=== PATIENT | male | born 1950 | race Caucasian/White ===

== ENCOUNTER 2023-10-10 07:04 | Outpatient (CLI) | payer OTHER, SELFPAY ==
--- NOTE | 2023-10-10 08:46 | W.ANESCHARGE ---
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
--- NOTE | 2023-10-10 12:10 | W.ANESCHARGE ---
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
== END 2023-10-10 07:05 | disposition home or self-care (01) ==
LOC: OP CLINIC 07:04
PROVIDERS: PCP Internal Medicine; Visit Provider Surgery
DX: Z12.11 Encounter for screening for malignant neoplasm of colon (principal); K63.5 Polyp of colon; K57.30 Diverticulosis of large intestine without perforation or abscess without bleeding; Z86.010 Personal history of colon polyps
CPT/HCPCS: 00811; 45385; 88305; 99100; J2704

== ENCOUNTER 2024-08-30 08:05 | Outpatient (CLI) | payer OTHER, SELFPAY ==
--- OUTSIDE RECORDS SUMMARY | 2024-09-02 15:53 | XMS_ITS | Encounter Summary ---
Author Organization [email or web address] Address [address], [place] [address] Care Team Providers Care Scenery Builder Name Role Phone Daly Silveira MD Primary Care Provider +1- [phone] Reason for Visit * Reason Comments Surgery Questions Encounter Details Date Type Department Care Team (Late st Contact Info) Description 07/19/2024 Telephone [facility] [address] Urology [address] [place] [address] Razia Ochoa PA-C [address] [place] [address] Surgery Questions Social History Tobacco Use Types Packs/Day Years Used Date Smoking Tobacco: Never Smokeless Tobacco: Former Chew Quit: 2019 Alcohol Use Standard Drinks/Week Comments Not Currently 0 (1 standard drink = 0.6 oz pur e alcohol) Sex and Gender Information Value Date Recorded Sex Assigned at Not on file Gender Identity Not on file Sexual Orientation Not on file documented as of this encounter Nursing Notes * Rosie Velazquez RN - 07/19/2024 3:26 PM CDT Pt calls in to confirm that he and Suri discussed cancelling his upcoming surgery with Dr. Jamison. I reviewed the office visit note from last week and discussed with Suri, plan was to cancel surgeryfor now. Repeat the UDS in 1 year. Pt to call in the interim if symptoms worsen. Per pt, he is not ready for surgery and is managing ok for now. documented in this encounter Plan of Treatment Upcoming Encounters Date Type Department Care Team (Late st Contact Info) Description 10/08/2024 10:30 AM CASE WORK AIDE [facility]ointment [facility] 39[address] Pulmonary Lab [address] [place] [address] 10/08/2024 11:00 AM CASE WORK AIDE Office Visit [facility] [address] Pulmonary Medicine [address] [place] [address] Sujatha Parra MD [address] [facility] [address] [place] [address] 10/11/2024 9:45 AM CASE WORK AIDE Appointment [facility] [address] Dermatology [address] [place] [address] Vania Cohen MD [address] [place] [address] documented as of this encounter Visit Diagnoses Not on filedocumented in this encounter Care Teams Scenery Builder Relationship Specialty Start Date End Date Daly Sivleira MD [address] [place] [address] PCP - General Internal Medicine 04/08/22 documented as of this encounter
--- OUTSIDE RECORDS SUMMARY | 2024-09-02 15:53 | XMS_ITS | Encounter Summary ---
Author Organization [facility] Address [address], [place] [address] Care Team Providers Care Laborer Hoisting Name Role Phone Daly Silveira MD Primary Care Provider +1- [phone] Reason for Visit * Auth/Cert (Routine) Specialty Diagnoses / Procedures Referred By Contac t Referred To Contact Diagnoses Incomplete bladder emptying Procedures TRANSURETHRAL RESECTION OF THE PROSTATE Referral ID Status Reason Start Date Expiration Date Visits Re quested Visits Authorized [id number] 1 1 Encounter Details Date Type Department Care Team (Late st Contact Info) Description 08/09/2024 Hospital Encounter [facility] [address] [facility] [place], [place] [address] Guru Jamison MD [address] [place], [place] [address] Social History Tobacco Use Types Packs/Day Years Used Date Smoking Tobacco: Never Smokeless Tobacco: Former Chew Quit: 2019 Alcohol Use Standard Drinks/Week Comments Not Currently 0 (1 standard drink = 0.6 oz pur e alcohol) Sex and Gender Information Value Date Recorded Sex Assigned at Not on file Gender Identity Not on file Sexual Orientation Not on file documented as of this encounter Plan of Treatment Upcoming Encounters Date Type Department Care Team (Late Contact Info) Description 10/08/2024 10:30 AM BENEFITS DIRECTOR Appointment [facility] 39[address] Pulmonary Lab [address] [place] [address] 10/08/2024 11:00 AM BENEFITS DIRECTOR Office Visit [facility] 39[address] Pulmonary Medicine [address] [place] [address] Sujatha Parra MD [address] [facility] [address] [place] [address] 10/11/2024 9:45 AM BENEFITS DIRECTOR Appointment [facility] [address] Dermatology [address] [place] [address] Vania Cohen MD [address] [place] [address] documented as of this encounter Visit Diagnoses Diagnosis Incomplete bladder emptying- Primary documented in this encounter Admitting Diagnoses Diagnosis Incomplete bladder emptying documented in this encounter Care Teams Laborer Hoisting Relationship Specialty Start Date End Date Daly Silveira MD [address] [place] [address] PCP - General Internal Medicine 04/08/22 documented as of this encounter
--- OUTSIDE RECORDS SUMMARY | 2024-09-02 15:53 | XMS_ITS | Encounter Summary ---
Author Organization [facility] Address [address] [address] Care Team Providers Care Briquetter Operator Name Role Phone Daly Silveira MD Primary Care Provider +1- [phone] Reason for Visit * Reason Comments Post-Op Follow Up Encounter Details Date Type Department Care Team (Late st Contact Info) Description 08/07/2024 Telephone [facility] [address] [place], [place] [address] Nurse Cris Killian Post-Op Follow Up Social History Tobacco Use Types Packs/Day Years [...] as of this encounter Nursing Notes * Michaela Patel RN - 08/07/2024 1:44 PM CDT Post op call placed patient reports bleeding onto the dressing. He did apply pressure and active bleeding has stopped. Reviewed to monitor closely and to apply pressure if starts to actively bleed again and to call clinic with any questions or concerns. documented in this encounter Plan of Treatment Upcoming Encounters Date Type Department Care Team (Late st Contact Info) Description 10/08/2024 10:30 AM PODIATRIST ASSISTANT Appointment [facility] 39[address] Pulmonary Lab [address] [place] [address] 10/08/2024 11:00 AM PODIATRIST ASSISTANT Office Visit [facility] 3931 Pulmonary Medicine [address] [facility] [place] [address] Sujatha Parra MD [address] [facility] [address] [place] [address] 10/11/2024 9:45 AM PODIATRIST ASSISTANT Appointment [facility] [address] Dermat[address] [place] [address] Vania Cohen MD [address] [place] [address] documented as of this encounter Visit Diagnoses Not on filedocumented in this encounter Care Teams Briquetter Operator Relationship Specialty Start Date End Date Daly Silveira MD [address] [place] [address] PCP - General Internal Medicine 04/08/22 documented as of this encounter
--- OUTSIDE RECORDS SUMMARY | 2024-09-02 15:53 | XMS_ITS | Encounter Summary ---
Author Organization [facility] Address [address] [address] Care Team Providers Care Bus And Trolley Inspecting Dispatcher Name Role Phone Daly Silveira MD Primary Care Provider +1- [phone] Reason for Referral * Procedure/Equipment (Routine) - Incomplete Specialty Diagnoses / Procedures Referred By Nikki t Referred To Contact Diagnoses Renal mass Procedures MR Abd W/WO IV Cont Razia Ochoa PA-C [address] [place] [address] Referral ID Status Reason Start Date Expiration Date V isits Requested Visits Authorized [id number] Incomplete 01/16/2025 04/17/2026 1 1 Encounter Details Date Type Department Care Team (Late st Contact Info) Description 07/19/2024 Orders Only [facility] [address] Urology [address] [place] [address] Razia Ochoa PA-C [address] [place] [address] Renal mass (Primary Dx) Social History Tobacco Use Types Packs/Day Years [...] st Contact Info) Description 10/08/2024 10:30 AM DETENTION OFFICER Appointment [facility] 39[address] Pulmonary Lab [address] [place] [address] 10/08/2024 11:00 AM DETENTION OFFICER Office Visit [facility] 39[address] Pulmonary Medicine [address] [place] [address] Sujatha Parra MD [address] [facility] [address] [place] [address] 10/11/2024 9:45 AM DETENTION OFFICER Appointment [facility] [address] D[address]atology [address] [place] [address] Vania Cohen MD [address] [place] [address] Scheduled Orders Name Type Priority Associated Diagnoses Orde r Schedule MR Abd W/WO IV Cont Imaging New Routine Renal mass Expected: 01/16/2025 (Approximate), Expires: 01/16/2026 documented as of this encounter Visit Diagnoses Diagnosis Renal mass- Primary Unspecified disorder of kidney and ureter documented in this encounter Care Teams Bus And Trolley Inspecting Dispatcher Relationship Specialty Start Date End Date Daly Silveira MD [address] [place] [address] PCP - General Internal Medicine 04/08/22 documented as of this encounter
--- OUTSIDE RECORDS SUMMARY | 2024-09-02 15:53 | XMS_ITS | Encounter Summary ---
Author Organization [facility] Address [address], [place] [address] Care Team Providers Care Senior Software Quality Analyst Name Role Phone Daly Silveira MD Primary Care Provider +1- [phone] Encounter Details Date Type Department Care Team (Late Contact Info) Description 07/22/2024 Notes/Orders [facility] [address] [place], [place] [address] Guillermina Burton, PharmD [address] [place], [place] [address] Social History Tobacco Use Types Packs/Day Years Used Date Smoking Tobacco: Never Smokeless Tobacco: Former Chew Quit: 2019 Alcohol Use Standard Drinks/Week Comments Not Currently 0 (1 standard drink = 0.6 oz pur e alcohol) Sex and Gender Information Value Date Recorded Sex Assigned at Not on file Gender Identity Not on file Sexual Orientation Not on file documented as of this encounter Progress Notes * Guillermina Burton, PharmD - 07/22/2024 10:48 AM CDT Chart review completed. Reason: adherence assessment via referral from [employer] [facility]. Medication(s): Lisinopril Comments: Last refilled on 02/22 for 90 days per [facility]. Per patient he has still been taking. Does need a refill. Action Taken: Refill for 90 days sent to pharmacy [facility] Medication Therapy Management documented in this encounter Plan of Treatment Upcoming Encounters Date Type Department Care Team (Late st Contact Info) Description 10/08/2024 10:30 AM MOTORS ASSEMBLER Appointment [facility] 39[address] Pulmonary Lab [address] [place] [address] 10/08/2024 11:00 AM MOTORS ASSEMBLER Office Visit [facility] 39[address] Pulmonary Medicine [address] [place] [address] Sujatha Parra MD [address] [facility] [address] [place] [address] 10/11/2024 9:45 AM MOTORS ASSEMBLER Appointment [facility] [address] Dermatology [address] [place] [address] Vania Cohen MD [address] [place] [address] documented as of this encounter Visit Diagnoses Not on filedocumented in this encounter Care Teams Senior Software Quality Analyst Relationship Specialty Start Date End Date Daly Silveira MD [address] [place] [address] PCP - General Internal Medicine 04/08/22 documented as of this encounter
--- OUTSIDE RECORDS SUMMARY | 2024-09-02 15:53 | XMS_ITS | Encounter Summary ---
[facility] Organization [facility] Address [address] [address] Care Team Providers Care Flame Planer Name Role Phone Daly Silveira MD Primary Care Provider [phone]- [phone] Reason for Visit * Reason Comments BCC (BASAL CELL CARCINOMA) Mohs surgery, right dorsal hand * Consult/Transfer Care (Routine) - New Request Specialty Diagnoses / Procedures Referred By Contac t Referred To Contact Diagnoses BCC (basal cell carcinoma), hand, right Vania Cohen MD [address] [place] [id number] Referral ID Status Reason Start Date Expiration Date V isits Requested Visits Authorized [id number] New Request 04/18/2024 07/18/2025 1 1 Encounter Details Date Type Department Care Team (Late st Contact Info) Description 08/06/2024 7:45 AM CDT Office Visit [facility] [address] [place], [place] [phone] Arlen Killian MD [address] [place] [phone] Basal cell carcinoma (BCC) of right hand (Primary Dx) Social History Tobacco Use Types [...] on file documented as of this encounter Patient Instructions * Patient Instructions* Alisia Hernandez - 08/06/2024 7:45 AM CDT Dermatologic Surgery Wound Care All Patients: Following skin surgery, you can expect: Mild to moderate bruising on or around surgical site Moderate swelling Mild to moderate pain For surgery on the scalp, forehead, adventism, eye or nose - bruising and swelling around the eyes is normal and usually lasts for several days. For surgery on the arm, hand, leg and foot - swelling of the hands or feet is normal. Keeping the area elevated and using an arm sling or wrapping with an OWEN wrap will help to control swelling. Call the office or present to urgent care if you experience any of the following: Constant fever above 101 F Intense pain near surgical site Increased swelling, spreading redness or uncontrolled bleeding Reopening of the wound at any time Yellowish drainage from the wound Bleeding: During the first 24 to 48 hours, a small amount of bleeding around the dressing/bandage may be noticed. You may reinforce the dressing with more tape if needed. Try to avoid removing the dressing even if light bleeding is noticed, since this may lead to even more bleeding. If bleeding or drainage continues or saturates the dressing: Apply firm and direct pressure with a clean cloth or gauze for 20 minutes (set a timer). Do not release pressure to look at bleeding status during this time. If bleeding continues after 20 minutes, apply pressure again for 20 additional minutes. If the bleeding persists, continue the pressure & call our office for further instructions. If bleeding stops, you may add additional gauze over the dressing or change the saturated dressing, securing it in place with tape. Activity: Relax and take it easy for the first 48 hours after surgery and avoid activities that would raise your heart rate or blood pressure. Elevate surgical site (head, neck, arm, leg) on 2-3 pillows when lying or sitting. Use an ice pack over the surgical site for 20 minutes, every 2 hours while awake for the first 24-48 hours. Avoid bending over, reaching, stretching, or lifting greater than 10 lbs. for 2 weeks. NO aerobic exercise for 14 days; brisk walking, gardening, golfing, etc. This type of activity can put your sutures under stress, interfere with healing, and cause bleeding. Avoid prolonged water exposure (swimming or soaking) for 3 weeks or until the wound is healed. Avoid taking non-prescribed aspirin for pain, unless directed to do so by a physician. Tylenol is okay to take (500-650 mg every 4-6 hours as needed) or you may take the prescription pain medication given to you by our physician. DO NOT take Tylenol along with prescription pain medication as this can be damaging to the liver and kidneys and/or possibly lead to an overdose. If you are still having pain, you may also take ibuprofen 400 mg every 4-6 hours as needed as long as it is ok with your primary care and/or other physicians. Avoid drinking alcohol for one week following your procedure. Alcohol increases risk of bleeding. Avoid smoking. Smoking greatly decreases wound healing. IMPORTANT PHONE NUMBERS For any questions concerning your surgical wound site(s), please call the numbers below. If you leave a message, please include your full name, date of , date and office location of surgery, body site, and a brief description of your problem or question: Monday - Monday between the hours of 7:30 a.m. and 3:30 p.m., please call Dr. Killian's Nurse Line: [phone] ALWAYS USE THIS NUMBER DURING BUSINESS HOURS. Dr. Killian is not in the office on Monday and Monday, but her nurse line is available to answer any questions. For emergency use only on evenings, weekends, and holidays, please call or text Dr. Killian's mobile number: [phone] We request that you always contact us by phone first, on Dr. Killian's Nurse Line, to schedule anappointment if you feel you need to be seen in clinic. Standard Care Instructions Leave the initial pressure dressing/bandage applied in the clinic AND KEEP DRY for 2 days. When it is time to remove the dressing, remove it very gently as not to disrupt the wound and any sutures underneath. Some amount of blood on the dressing is normal. The easiest way to remove the dressing is to let shower water get it wet and loosen the tape. Once the dressing is off, gently wash the wound with warm, soapy water. Apply ointment (clean Vaseline, petrolatum, or Aquaphor) to the incision with a cotton swab (Q-tip)and cover with a small piece of non-adherent gauze (such as Telfa) and tape. Avoid placing tape or adhesive directly over incision. Do not let the area dry out or form a scab, as it can slow healing and create scarring. Perform site care twice per day until the surface of the incision has healed - usually for 2-3 weeks. 4 weeks after surgery: You can start gently massaging the scar area for a few minutes a day. You may apply silicone gel twice a day (ScarAway, Scar Recovery, Biocorneum or Serica gel available at [facility] or online). Protect the healing scar from the sun. Apply sunscreen regularly when outdoors. documented in this encounter Progress Notes * Arlen Killian MD - 08/06/2024 7:45 AM CDT Chief Complaint Patient presents with BCC (BASAL CELL CARCINOMA) Mohs surgery, right dorsal hand S:Sonny Van is a 74 y.o. male referred by Dr. Vania Swann who presents for evaluation and possible surgical treatment of a BCC of the right dorsal hand. Pt reports biopsy site has been healing well. No other lesions of concern. ROS: No fevers/chills. No other skin complaints. PMH: Reviewed in health profile. Medications: Reviewed in patients health profile. The patient has a current medication list which includes the following prescription(s): albuterol sulfate hfa, alprazolam, aripiprazole, aspirin ec, atorvastatin, betamethasone dipropionate, budesonide, cholecalciferol, desonide, escitalopram oxalate, fluocinonide, fluocinonide, fluticasone-vilanterol, gentamicin, ipratropium- albuterol, lisinopril, methylphenidate, metoprolol succinate, mirtazapine, nitroglycerin, omeprazole, prednisone, quetiapine, tacrolimus, tamsulosin, and triamcinolone acetonide, and the following Facility-Administered Medications: sodium chloride 0.9%. Allergies: The patient is allergic to morphine. OBJECTIVE : Constitutional: Alert, WDWN, cooperative in no acute distress. Biopsy site easily identified and site confirmed by pt and photo Path report was reviewed with pt FINAL DIAGNOSIS - [id number] A. Skin, Right Dorsal Hand, shave: - Basal cell carcinoma, nodular type, present at deep biopsy margin. ASSESSMENT/PLAN: 1. Biopsy proven BCC, right dorsal hand --Pt was educated regarding dx --Discussed all management options with patient, including benefits and risks of each: no treatment, excision and repair, Mohs micrographic surgery --Pt elected Mohs micrographic surgery and understands the risks of scar (including scar widening, hypertrophic/keloid scar, erythematous/hyperpigmented/hypopigmented scar), bleeding, infection, numbness, recurrence, dehiscence, necrosis --Patient would like to go forward with procedure today, which was subsequently done --Please see operative note and consent form for further details F/U as needed (pt preferred absorbable sutures, strict return precautions discussed). Also follow-up with referring provider per their instructions or sooner prn. * Arlen Killian MD - 08/06/2024 7:45 AM CDT Dermatology: Mohs Micrographically Controlled Tumor Extirpation Mohs Surgeon: Arlen Killian M.D. Aerobics Instructor: Alisia Hernandez MA Anesthesia: 1% Lidocaine with epinephrine Cancer Type: Nodular Basal Cell Carcinoma Anatomic Site: Right dorsal hand Preoperative Lesion Size: 1.1 cm x 1.1 cm Operation: Mohs micrographically controlled tumor extirpation Indication: anatomic location Final Surgical Defect Size: 1.5 cm x 1.2 cm Skin Preparation: Hibiclens Preoperative Medication(s): none MOHS STAGE I: The nature and purpose of the procedure, associated risks, possible consequences and complications,and alternative forms of treatment were explained in detail. The biopsy site was identified and wasconfirmed by the patient and the photo provided. An informed operative consent and photo permit were obtained. The patient was positioned, prepped, and draped in the usual sterile manner. Local anesthesia was obtained with local anesthetic as listed above. The clinically apparent tumor was then debulked with a curette. A 2 mm rim of normal appearing skin was marked circumferentially around the defect. The area thus outlined was excised deep to subcutis. Hemostasis was achieved with bipolar elect rocoagulation. The specimen was oriented, mapped, subdivided into 2 sections, chromacoded, and submitted for horizontal frozen sections. The patient tolerated the procedure well, no complications were noted, and a pressure dressing was placed. Microscopic tumor was found persisting in 1 of the specimens. Pathology Description Pathology shows proliferations of hyperchromatic, basaloid cells with large nuclei and scant cytoplasm that demonstrate peripheral palisading. The tumor is present at the level of the dermis. No lymphovascular or perineural invasion was appreciated. This pathology is consistent with basal cell carcinoma. MOHS STAGE II: A 3 mm rim of normal appearing skin was marked circumferentially around the affected area(s) of thedefect. The area thus outlined was excised deep to subcutis. Hemostasis was achieved with bipolar electrocoagulation. The 1 specimen(s) was/were oriented, mapped, subdivided into 1 sections, chromacoded, and submitted for horizontal frozen sections. The patient tolerated the procedure well, no complications were noted, and a pressure dressing was placed. Microscopic tumor was found persisting in none of the specimen(s). The total number of microscopic sections from all Mohs stages was 3. Arlen Killian MD acted in two separate but integrated capacities as both the surgeon and the pathologist. MOHS DEFECT RECONSTRUCTION PROCEDURE Operation: Intermediate linear closure of Mohs defect described above. Final Linear Closure: 3.1 cm. Various closure modalities were discussed with the patient, and it was decided that an intermediatelinear repair would best preserve normal anatomic and functional relationships. The nature and purpose of the procedure, associated risks, possible complications, and alternative methods of treatmentwere explained to the patient in detail by Arlen Killian MD. An informed operative consent wasobtained. The patient was positioned, prepped, and draped in the usual sterile manner. Adequate anesthesia was then obtained by infiltrating local anesthesia as listed above along the edges and at the base of the defect. The edges of the defect were undermined at the dermal subcutaneous layer approximately 1.0 cm in all directions. The edges could then be opposed without significant tension. Excision of standing tissue cones was performed via triangulation technique. Adequate hemostasis was achieved with bipolar electrocoagulation. The subcutaneous and dermal tissues were opposed and sutured with multiple 4-0 Vicryl sutures. The epidermal edges were then closed with multiple 4-0 Chromic gutsutures. The final incision lines were placed with respect for the patient's natural skin tension lines. The surgical site was lightly scrubbed. A Mupirocin ointment, Telfa and gauze pressure dressing was applied to the surgical site. The patient tolerated the procedure well without complications and was given both verbal and written explicit instructions on postoperative wound care and pain management. Follow-up for suture removal in prn days. Patient was recommended Extra Strength Tylenol perpackage directions, as needed for mild pain control. The patient was discharged stable from the Derm atology Clinic. [facility] [address] [place] [address] documented in this encounter Plan of Treatment Upcoming Encounters Date Type Department Care Team (Late st Contact Info) Description 10/08/2024 10:30 AM BIOMEDICAL FIELD SERVICE ENGINEER [facility]ointment [facility] [address] [place] [id number] 10/08/2024 11:00 AM BIOMEDICAL FIELD SERVICE ENGINEER Office Visit [facility] [facility] [address] [place] [address] [place] [address] [place] [address] [address] [place] [address] 10/11/2024 9:45 AM BIOMEDICAL FIELD SERVICE ENGINEER Appointment [facility] [address] [place] [address] Vania Cohen MD [address] [place] [phone] Scheduled Referrals Name Type Priority Associated Diagnoses Orde r Schedule Dermatology Surgery/Mohs Consult Adult Referral Routine BCC (basal cell carcinoma), hand, right Ordered: 04/18/2024 documented as of this encounter Visit Diagnoses Diagnosis Basal cell carcinoma (BCC) of right hand- Primary documented in this encounter Care Teams Flame Planer Relationship Specialty Start Date End Date Daly Silveira MD [address] [place] [address] PCP - General Internal Medicine 04/08/22 documented as of this encounter
--- OUTSIDE RECORDS SUMMARY | 2024-09-02 15:53 | XMS_ITS | Clinical Summary ---
[facility] Organization [facility] Address [address] [place] [address] Care Team Providers Care Career Developer Name Role Phone Daly Silveira MD Primary Care Provider [phone] Source Comments You are receiving this document as you are listed as the primary care provider,follow-up provider, or the patient has been referred to you for consultation.This is in compliance with the Medicare and[facility] E[facility] Incentive Program,which states Providers who transition their patient to another setting of careor provider of care or refers their patient to another provider of care shouldprovide summary care record for each transition of care or referral. [facility] [employer] Allergies Active Allergy Reactions Criticality Noted Date Comments Morphine Hypotension 07/10/2020 Medications Medication Sig Dispensed Refills Start Date End Date Status aspirin EC (ECOTRIN) 325 MG enteric coated tablet Take 1 Tablet (325 mg) by mouth daily. 13 7 Active cholecalciferol (AKA VITAMIN D3) 1000 UNITS tablet Take 2 tablets by mouth daily (every 24 hours). 100 tablet PRN 3 Active nitroglycerin (NITROSTAT) 0.[address] 1 Tablet (0.3 mg) under tongue every 5 minutes as needed for Chest Pain (Place 0.3 mg under the tongue every 5 minutes as needed for Chest pain.). 4 Active omeprazole (PRILOSEC) 40 MG capsule TAKE 1 CAPSULE BY MOUTH DAILY 90 Cap 0 7 Active metoprolol succinate (TOPROL XL) 50 MG 24 hour release tablet Take 2 Tablets (100 mg) by mouth daily. 2 Active gentamicin (GARAMYCIN) 0.1 % ointment Apply topically two times a day. 30 g 3 Active atorvastatin (LIPITOR) 40 MG tablet TAKE 1 TABLET(40 MG) BY MOUTH DAILY 90 Tablet 3 Active triamcinolone acetonide (KENALOG) 0.1 % ointmentIndicatio ns:Dermatitis Apply topically two times a day. Apply to the body twice a day as needed. Avoid face, under arms and groin. 453.6 g 1 4 Active Additional Information Patient not taking.Reported on 05/07/2024 desonide (DESOWEN) 0.05 % creamIndications: Dermatitis Apply to skin behind both ears twice a day as needed. 30 g 2 4 Active fluocinonide (LIDEX) 0.05 % external solutionIndicatio ns:Dermatitis Apply topically two times a day. Apply to scalp twice a day as needed. 60 mL 3 4 Active escitalopram oxalate (LEXAPRO) 20 MG tablet Take 2 Tablets (40 mg) by mouth daily. 180 Tablet 1 4 Active QUEtiapine (SEROQUEL) 300 MG tabletIndications :MDD (major depressive disorder), recurrent, in partial remission (HRC) Take 2 Tablets (600 mg) by mouth daily at bedtime. 180 Tablet 1 4 Active ALPRAZolam (XANAX) 0.5 MG tabletIndications :HAI (generalized anxiety disorder) (HRC) Take 1 Tablet (0.5 mg) by mouth two times a day. Updated prescription and number of pills per month 60 Tablet 3 4 Active methylphenidate (RITALIN) 10 MG tablet For 1 week, take 10 mg daily, then increase to 10 mg twice daily. Pharmacist may substitute 60 Tablet 4 Active Additional Information Patient not taking.Reported on 05/07/2024 fluocinonide (LIDEX) 0.05 % ointmentIndicatio ns:Rash Apply topically two times a day. Apply twice daily to areas of rash on both arms and back of neck, avoid face, armpits and groin. 60 g 3 4 Active ALBUterol sulfate HFA 108 (90 Base) MCG/ACT inhalerIndication s:Severe persistent asthma without complication (HRC) Inhale 1-2 Puffs every 4 hours as needed for Wheezing or Shortness of Breath. 6.7 g 11 4 Active fluticasone-vilan terol (BREO ELLIPTA) 200-25 MCG/ACT inhaler Inhale 1 Dose daily. Rinse mouth/gargle after use 180 Each 3 4 Active budesonide (PULMICORT) 0.5 MG/2ML inhalation suspensionIndicat ions:Severe persistent asthma, unspecified whether complicated (HRC) Inhale 2 mL (0.5 mg) two times a day. 360 mL 11 4 Active predniSONE (DELTASONE) 10 MG tabletIndications :Severe persistent asthma, unspecified whether complicated (HRC) 4 tabs daily x3 days, 3 tabs daily x3 days, 2 tabs daily x3 days, 1 tab daily x3 days, then stop 30 Tablet 3 4 Active ipratropium-albut xander (DUONEB) 0.5-2.5 (3) mg/3ml nebulizer solutionIndicatio ns:Severe persistent asthma, unspecified whether complicated (HRC) Inhale 3 mL every 6 hours as needed for Wheezing or Shortness of Breath. 90 mL 11 4 Active betamethasone dipropionate 0.05 % AUGMENTED ointment Apply topically two times a day. 60 g 2 4 Active mirtazapine (REMERON) 45 MG tablet Take 1 Tablet (45 mg) by mouth every evening. NEED TO SCHEDULE AN APPT FOR FUTURE REFILLS. PLEASE CALL [phone] TO SCHEDULE. 30 Tablet 3 4 Active tacrolimus (PROTOPIC) 0.1 % ointmentIndicatio ns:Rash Apply to arms and back of neck twice a day as needed for itching. 60 g 2 4 Active tamsulosin (FLOMAX) 0.4 MG CAPS capsuleIndication s:Enlarged prostate,Urinary retention Take 1 Capsule (0.4 mg) by mouth daily. 90 Capsule 3 4 07/12/20 25 Active lisinopril (ZESTRIL) 20 MG tablet Take 1 Tablet (20 mg) by mouth daily. 90 Tablet 1 4 Active ARIPiprazole (ABILIFY) 5 MG tablet TAKE 1 TABLET(5 MG) BY MOUTH EVERY MORNING 30 Tablet 4 Active ARIPiprazole (ABILIFY) 5 MG tablet Take 1 Tablet (5 mg) by mouth every morning. 30 Tablet 3 4 08/07/20 24 Discontinued Active Problems Patient Care Coordination No te Formatting of this note migh t be different from the original. [facility] DCM Care Management Sonny Van was offered Case Management support. He agrees to work with [facility] to assist with connection to mental health resources and understanding his cardiovascular plan of care. Janette Lujan RN 09/03/2020, 5:06 PM Update 08/26- Closing case, goals have been met. Problem Noted Date Diagnosed Date Bladder outlet obstruction 07/12/2024 Incomplete bladder emptying 07/02/2024 Frequent PVCs 12/08/2023 Overview (12/08/2023): - ZIO Patch monitor (11/23-): Sinus rhythm heart rates of 53-106 bpm with an average of 75 bpm. 133 runs of non-sustained VT. 5 runs of non-sustained SVT. Frequent (17%) PVCs and rare PACs. - Amiodarone ineffective. - Ablation 2004. 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 ; Rheumatoid arthritis(714.0) ([facility]) Vitamin D deficiency 10/09/2013 Generalized anxiety disorder 06/14/2013 Primary hypertension 09/28/2012 Hypercholesterolemia 09/28/2012 History of squamous cell carcinoma of skin 09/28 Overview (01/06/2023): SCCis Right Posterior Mandible, referred to Mohs 01/05/2023 SCC in situ, right lower vermilion lip, s/p MOHS 03/02/22 SCCis, right antitragus, s/p Mohs 08/12/2021 SCCis, mid occipital scalp, s/p Mohs 08/12/2021 SCC, right antihelix, s/p Mohs 07/27/2021 SCC, right upper posterior lateral arm, s/p excision 07/06/2021 SCC, left upper anterior arm, s/p excision 03/16/2021 SCC, left dorsal forearm, s/p excision 04/20/2020 SCC, right ear - jose bowl, s/p Mohs SCC, posterior external auditory meator, 2019 SCCis, left postauricular neck, s/p Mohs 07/10/2018 SCCis, right post-auricular scalp, s/p mohs 11/12/2015 SCCis, left yazdanism, s/p efudex 10/2015 SCCis, right lateral orbital rim, s/p Mohs 08/28/2015 SCC, right cheek, s/p MMS 05/2015 SCC, left jaw line, s/p MMS 05/2015 SCC, right postauricular neck, s/p MMS 04/2015 SCC, left postauricular neck, s/p MMS 04/2015 SCC, left cheek, s/p MMS 03/2015 SCC, left yazdanism, s/p MMS 03/2015 Multiple other NMSC's in past treated at [facility] Major depressive disorder, recurrent episode, mo derate 06/01/2011 Severe episode of recurrent major depressive dis order 11/28/2007 Coronary artery disease invo lving king salmon coronary artery of king salmon heart without angina pectoris 08/02/2005 Overview (12/08/2023): - angiogram 2006: mild ASHD - OS Nuclear Stress test: fixed inferior defect with no evidence of ischemia; EF 42% - Echo 05/15/2020: EF 50-55%; mid posterior and inferior wall hypokinesis Resolved Problems Problem Noted Date Diagnosed Date Resolved Date Chronic a-fib 10/08/2013 12/08/2023 Overview (06/02/2016): Had atrial fibrillation diagnosed in the year 1999, had ablation at [facility], successful, no anticoagulation. Sepsis 09/28/2012 09/20/2022 Overview (06/21/2017): Sepsis(995.91) ([facility]) Dysthymia 06/01/2011 11/04/2014 Encounters Date Type Department Care Team Description 08/09/2024 Hospital Encounter [facility] [address] [facility] [place] [address] Guru Jamison MD 08/07/2024 Telephone [facility] [address] [place] [address] Nurse Cris Killian Post-Op Follow Up 08/06/2024 7:45 AM CDT Office Visit [facility] [address] [place] [address] Arlen Killian MD Basal cell carcinoma (BCC) of right hand (Primary Dx) 07/22/2024 Notes/Orders [facility] [address] [place] [address] Guillermina Burton, PharmD 07/19/2024 Telephone [facility] [address] [address] [address] [place] [phone] Razia Ochoa PA-C Surgery Questions 07/19/2024 Orders Only [facility] [address] [address] [address] [place] [phone] Razia Ochoa PA-C Renal mass (Primary Dx) 07/16/2024 8:30 AM CDT Ancillary Procedure [facility] [address] [address] [place] [address] [place] [phone] Razia Ochoa PA-C Acquired renal cyst of right kidney; Complex renal cyst 07/12/2024 9:30 AM CDT Office Visit [facility] [address] [address] [address] [place] [phone] Razia Ochoa PA-C Bladder outlet obstruction (Primary Dx); Incomplete bladder emptying; Enlarged prostate; Bladder trabeculation; Complex renal cyst; Renal cyst, right; Sacral mass (HRC); Urinary retention 07/09/2024 9:45 AM CDT Office Visit [facility] [address] [place] [address] Vania Cohen MD Rash (Primary Dx) 07/02/2024 10:15 AM CDT Procedure Visit [facility] [address] [address] [address] [place] [phone] Guru Jamison MD Procedure from Last 3 Months Immunizations Name Administration Dates Next Due Flu Vac (3+ yrs) 10/18/2005 Flu Vac Preserv Free (3+yrs) 10/07/2013, 09/17/2012,09/14/2011, 010 Influenza IIV3 (Trivalent) F sepideh Highdose, 65+ Yrs (35940) 09/11/2018,11/30/2016,07/27/2015, 014 Influenza IIV4 (Quadrivalent ) Fluad, 65+ Yrs 09/20/2022 Influenza IIV4 (Quadrivalent ) Fluzone, 65+ Yrs 11/23/2021 PCV13 (Prevnar) 07/27/2015 PPSV23 (Pneumovax) 09/20/2022,09/14/2011 Pfizer Bivalent 12+ 09/20/2022 Pfizer Monovalent 12+ Purple Top 022,11/23/2021,01/19/2021, 021 TDAP (BOOSTRIX) 06/14/2013 Social History Tobacco Use Types Packs/Day Years Used Date Smoking Tobacco: Never Smokeless Tobacco: Former Chew Quit: 2019 Tobacco Cessation:Counseling Given: Not Answered Alcohol Use Standard Drinks/Week Comments Not Currently 0 (1 standard drink = 0.6 oz pur e alcohol) Sex and Gender Information Value Date Recorded Sex Assigned at Not on file Gender Identity Not on file Sexual Orientation Not on file Last Filed Vital Signs Vital Sign Reading Time Taken Comments Blood Pressure 123/76 12/08/2023 1:25 PM POWDER LOADER Pulse 63 05/07/2024 10:57 AM CDT Temperature 36.5 ??C (97.7 ??F) 03/24/2023 12:57 PM C DT Respiratory Rate 20 03/24/2023 3:38 PM CDT Oxygen Saturation 96% 05/07/2024 10:57 AM CDT Inhaled Oxygen Concentration - - Weight 100.7 kg (222 lb) 05/07/2024 10:57 AM CDT Height 180.3 cm (5' 11) 05/07/2024 10:57 AM CDT Body Mass Index 30.96 05/07/2024 10:57 AM CDT Plan of Treatment Upcoming Encounters Date Type Department Care Team (Late st Contact Info) Description 10/08/2024 10:30 AM POWDER LOADER [facility]ointment [facility] [facility] [address] [place] [address] 10/08/2024 11:00 AM POWDER LOADER [facility] Visit [facility] [facility] Medicine [address] [place] [address] Sujatha Parra MD [address] [place] [address] 10/11/2024 9:45 AM POWDER LOADER Appointment [facility] [address] Derm[address]ology [address] [place] [address] Vania Cohen MD [address] [place], [place] [id number] Health Maintenance Due Date Last Done Comments Zoster/Shingles (1 of 2) 1998 DTaP/Tdap/Td (2 - Tdap) 06/14/2023 06/14/2013 RSV (1 - 1-dose 75+ series) 2023 Colonoscopy 10/17/2023 10/17/2013 COVID-19 Vaccine ( season) 2024 09/20/2022, 04/19/2022, 11/23/2021, Additional history exists Influenza (#1) 2024 09/20/2022, 10/31, 07/23/2020, Additional history exists Medicare Annual Wellness Visit 12/08/2024 12/08/2023, 03/30/2023, 09/20/2022, Additional history exists MTM Targeted 01/08/2025 01/09/2024, 12/28, 01/09/2024, Additional history exists Hep C Screening (Preventive Services) Completed 09/20/2022 Pneumococcal 65+ Yrs Completed 09/20/2022, 07/27/2015, 09/14/2011 Cholesterol Discontinued 12/12/2023, 08/31, 09/28/2012 HepA Aged Out No longer eligi ble based on patient's age to complete this topic HepB Aged Out No longer eligi ble based on patient's age to complete this topic Hib Aged Out No longer eligi ble based on patient's age to complete this topic IPV (Polio) Aged Out No longer eligi ble based on patient's age to complete this topic Infant RSV Aged Out No longer eligi ble based on patient's age to complete this topic MCV4 Aged Out No longer eligi ble based on patient's age to complete this topic Procedures Procedure Name Priority Date/Time Associated Diagnosis Comments MR ABD W/WO IV CONT Routine 07/16/2024 8 :45 AM CDT Acquired renal cyst of right kidney Complex renal cyst LIPID PANEL & DIRECT LDL (IF NEEDED) Routine 12/12/2023 10:42 AM POWDER LOADER Medication monitoring encounter HEPATITIS C ANTIBODY, WITH REFLEX Routine 09/20/2022 10:18 AM POWDER LOADER Need for hepatitis C screening test from Last 3 Months or Most Recently Relevant to Health Maintenance Results * MR Abd W/WO IV Cont (07/16/2024 8:45 AM CDT) Anatomical Region Laterality Modality Abdomen, Pelvis Magnetic Resonan ce 07/16/2024 8:12 AM CDT Impressions 07/16/2024 9:56 AM CDT COMPARISON: ??Prior MRIs most recently 10/20/2023. TECHNIQUE: ??Multiplanar, multisequence MR images of the abdomen were obtained before and following the administration of 10 mL GADOBUTROL 1 MMOL/ML IV SOLN with dynamic acquisition. FINDINGS: Right kidney: Within the interpolar region of the posterior right kidney is a T2 intermediate T1 and intermediate partially exophytic lesion measuring 2.1 x 1.5 cm (series 10 image 54). At pre-contrast this has signal intensity units of 50. Arterial, venous and delayed phase this has signal intensity units of 75, 97 and 85, respectively. This suggests enhancement though at this relatively small size to enhancement/volume average artifact might be deteriorating. Nonetheless, this is suspicious for renal enhancement. This is not meaningfully changed in size relative to priors in retrospect (series 8 image 53 on 10/20/2023 MRI and series 8 image 49 on 10/07/2022 MRI) when remeasured at similar technique. There are additional simple and hemorrhagic/proteinaceous cysts scattered in the right kidney. No hydronephrosis. Single right renal artery. Patent right renal vein. Left kidney: A 1.4 cm rounded well-circumscribed lesion posteriorly at the interpolar region of the left kidney. This is T2 hypointense but markedly intrinsically T1 hyperintense (series 10 image 48) and shows no increase in signal intensity units on any of the postcontrast phases as compared to the precontrast, compatible with a hemorrhagic/proteinaceous cyst. Additional simple and hemorrhagic/proteinaceous cysts in the right kidney measuring up to 4 cm exophytic superiorly. No enhancing left renal lesion. No hydronephrosis. Remainder of abdomen: The liver, gallbladder, bile ducts, pancreas, spleen and adrenals are unremarkable. Tiny sliding esophageal hiatal hernia. Partially visualized trabeculation of the urinary bladder wall suggesting are definite bladder or sequelae of chronic bladder outlet obstruction. No ascites, lymph node enlargement or suspicious osseous lesion. IMPRESSION: A 2.1 x 1.5 cm T2 and intermediate T1 and intermediate lesion within the right kidney appears to show measurable enhancement on the postcontrast images, raising suspicion for a solid enhancing neoplasm. However, the possibility of pseudo-enhancement or volume artifact given the location and slight misregistration is not excluded. The size stability since 10/07/2022 is reassuring. Therefore urology referral to direct further follow-up versus MRI follow-up in 1 year would each be appropriate. Narrative Procedure Note Prakash Quinteros MD - 07/16/2024 IMPRESSION COMPARISON: Prior MRIs most recently 10/20/2023. TECHNIQUE: Multiplanar, multisequence MR images of the abdomen wereobtained before and following the administration of 10 mL GADOBUTROL 1MMOL/ML IV SOLN with dynamic acquisition. FINDINGS: Right kidney: Within the interpolar region of the posterior right kidney is a K0xsbybrefzuff T1 and intermediate partially exophytic lesion measuring 2.1x 1.5 cm (series 10 image 54). At pre-contrast this has signal intensityunits of 50. Arterial, venous and delayed phase this has signal intensityunits of 75, 97 and 85, respectively. This suggests enhancement though atthis relatively small size to enhancement/volume average artifact might bedeteriorating. Nonetheless, this is suspicious for renal enhancement. Thisis not meaningfully changed in size relative to priors in retrospect(series 8 image 53 on 10/20/2023 MRI and series 8 image 49 on 10/07/2022MRI) when remeasured at similar technique. There are additional simple andhemorrhagic/proteinaceous cysts scattered in the right kidney. Nohydronephrosis. Single right renal artery. Patent right renal vein. Left kidney: A 1.4 cm rounded well-circumscribed lesion posteriorly at the interpolarregion of the left kidney. This is T2 hypointense but markedlyintrinsically T1 hyperintense (series 10 image 48) and shows no increasein signal intensity units on any of the postcontrast phases as compared tothe precontrast, compatible with a hemorrhagic/proteinaceous cyst.Additional simple and hemorrhagic/proteinaceous cysts in the right kidneymeasuring up to 4 cm exophytic superiorly. No enhancing left renal lesion.No hydronephrosis. Remainder of abdomen: The liver, gallbladder, bile ducts, pancreas, spleen and adrenals areunremarkable. Tiny sliding esophageal hiatal hernia. Partially visualizedtrabeculation of the urinary bladder wall suggesting are definite bladderor sequelae of chronic bladder outlet obstruction. No ascites, lymph nodeenlargement or suspicious osseous lesion. IMPRESSION: A 2.1 x 1.5 cm T2 and intermediate T1 and intermediate lesionwithin the right kidney appears to show measurable enhancement on thepostcontrast images, raising suspicion for a solid enhancing neoplasm.However, the possibility of pseudo-enhancement or volume artifact giventhe location and slight misregistration is not excluded. The sizestability since 10/07/2022 is reassuring. Therefore urology referral todirect further follow-up versus MRI follow-up in 1 year would each beappropriate. Razia Ochao PA-C RAD MRI * Lipid Panel & Direct LDL (if Needed) (12/12/2023 10:42 AM POWDER LOADER) Cholesterol 139 0 - 199 mg/dL 12/12/2023 12:52 PM [facility] Triglyceride 75 <=149 mg/dL 12/12/2023 12:52 PM [facility] HDL Cholesterol 41 >=40 mg/dL 12:52 PM [facility] LDL, Calculated 83 <130 mg/dL 12:52 PM [facility] Non HDL Chol, Calculated 98 <=159 mg/dL 12/12/2023 12:52 PM [facility] Cholesterol/HDL Ratio 3.4 <=5.0 12/12/2023 12:52 PM [facility] Hours Fasting 15.0 8 - 12 Hours 12/12/2023 12:52 PM [facility] Blood Venipuncture / Unknown 12/12/2023 10:42 AM POWDER LOADER 12/12/2023 10:42 AM POWDER LOADER Nieves Fleming MD [facility] [address] [place] [phone] * Hepatitis C Antibody, with Reflex (09/20/2022 10:18 AM POWDER LOADER) Hepatitis C Antibody Negative (Non Reactive) Negative (Non Reactive) 09/20/2022 2:04 PM POWDER LOADER [facility] Comment:Antibodies to HCV no t detected. Does not exclude the possiblity of exposure to HCV. Blood Venipuncture / Unknown 09/20/2022 10:18 AM POWDER LOADER 09/20/2022 10:18 AM POWDER LOADER Jarad Malloy MD [facility] [address] from Last 3 Months or Most Recently Relevant to Health Maintenance Care Teams Career Developer Relationship Specialty Start Date End Date Daly Silveira MD [address] [place] [address] PCP - General Internal Medicine 04/08/22
--- OUTSIDE RECORDS SUMMARY | 2024-09-02 15:53 | XMS_ITS | Clinical Summary ---
Author Organization [employer] [facility] Address [place], [place] [address] Care Team Providers Care Skip Miner Name Role Phone Daly Silveira MD Primary Care Provider [phone]- [phone] Allergies Active Allergy Reactions Criticality Noted Date Comments Morphine Hypotension 07/10/2020 Medications Medication Sig Dispensed Refills Start Date End Date Status omeprazole (PRILOSEC) 40 mg Delayed-Release capsule Take 1 capsule by mouth once daily. 0 11/14/2017 Active nitroglycerin (NITROSTAT) 0.[address] 1 tablet under the tongue every 5 minutes if needed for Chest Pain. 0 11/14/2017 Active atorvastatin (LIPITOR) 40 mg tablet Take 1 tablet by mouth once daily. 0 11/14/2017 Active QUEtiapine (SEROQUEL) 100 mg tablet Take 1 tablet by mouth 2 times daily. 0 11/14/2017 Active lisinopril (PRINIVIL; ZESTRIL) 20 mg tablet Take 1 tablet by mouth once daily. 0 11/14/2017 Active cholecalciferol (VITAMIN D) 1,000 unit tablet Take 1 tablet by mouth once daily. 0 11/14/2017 Active aspirin 325 mg tablet Take 1 tablet by mouth once daily with a meal. 0 11/14/2017 Active escitalopram oxalate (LEXAPRO) 20 mg tablet Take 1 tablet by mouth once daily. 0 11/14/2017 Active dextroamphetamine-amp hetamine (ADDERALL XR) 20 mg Extended-Release capsule Take 1 capsule by mouth every morning 0 11/14/2017 Active ALPRAZolam (XANAX) 1 mg tablet Take 1 tablet by mouth at bedtime if needed. 0 11/14/2017 Active QUEtiapine (SEROQUEL XR) 300 mg Extended-Release tablet Take 1 tablet by mouth at bedtime. 0 11/14/2017 Active fluticasone furoate-vilanteroL (Breo Ellipta) 200mcg/25mcg inhaler Inhale 1 Puff by mouth once daily. 60 Each 09/13/2022 Active metoprolol succinate (TOPROL XL) 50 mg sustained-release tabletIndications:Atr ial fibrillation, unspecified type (HC),Ventricular tachycardia (HC) Take 1 Tablet (50 mg) by mouth two times daily. NEEDS OFFICE VISIT FOR FURTHER REFILLS. CALL TO SCHEDULE. 180 Tablet 1 02/19/2024 Active Active Problems Problem Noted Date Diagnosed Date A-fib 07/20/2020 Overview (07/20/2020): - remote hx in 2004 - s/p ablation ASHD (arteriosclerotic heart disease) 07/20/2020 Overview (07/20/2020): - angiogram 2006: mild ASHD - [facility] Nuclear Stress test: fixed inferior defect with no evidence of ischemia; EF 42% - Echo 05/15/2020: EF 50-55%; mid posterior and inferior wall hypokinesis Ventricular tachycardia 07/20/2020 Overview (07/20/2020): - Hospitalized May 2020 with pneumonia (COVID Negative): asymptomatic VT - Holter 06/25/20 to 06/30/2020: Minimum HR 74 bpm, Max 119 bpm, Average 94 bpm; 20.5% PVC burden; frequent VT, max run 238 beats at 153 bpm; frequent couplets, bigeminy and trigeminy Asthma 07/20/2020 HTN (hypertension) 07/20/2020 Dyslipidemia 07/20/2020 Frequent PVCs Abnormal nuclear stress test Social History Tobacco Use Types Packs/Day Years Used Date Smoking Tobacco: Never Smokeless Tobacco: Never Alcohol Use Standard Drinks/Week Comments Not Currently 0 (1 standard drink = 0.6 oz pur e alcohol) Social Connections Answer Date Recorded Frequency of Communication with Friends and Fami ly Not on file 10/30/2021 Financial Resource Strain Answer Date R ecorded Difficulty of Paying Living Expenses Not on file 10/30/2021 Difficulty of Paying Living Expenses Not on file 10/30/2021 Sex and Gender Information Value Date Recorded Sex Assigned at Not on file Gender Identity Not on file Sexual Orientation Not on file Obstetrics History Last Filed Vital Signs Vital Sign Reading Time Taken Comments Blood Pressure 118/84 09/13/2022 10:34 AM DISTILLERY SUPERVISOR Pulse 58 09/13/2022 10:34 AM DISTILLERY SUPERVISOR Temperature 35.6 ??C (96 ??F) 07/20/2020 4:0 0 PM CDT Respiratory Rate 16 09/13/2022 10:3 4 AM DISTILLERY SUPERVISOR Oxygen Saturation 99% 09/13/2022 10: 34 AM DISTILLERY SUPERVISOR on room air Inhaled Oxygen Concentration - - Weight 95.9 kg (211 lb 6.4 oz) 09/13/20 10:34 AM DISTILLERY SUPERVISOR with boots Height 185.4 cm (6' 1) 09/13/2022 10:3 4 AM DISTILLERY SUPERVISOR Body Mass Index 27.89 09/13/2022 10:34 AM DISTILLERY SUPERVISOR Plan of Treatment Health Maintenance Due Date Last Done Comments Tdap 1959 Depression screening for age 12+ 1960 Hepatitis C screening for ag e 18-79 1966 Tetanus booster 1968 Zoster (shingles) series for age 50+ (1 of 2) 1998 Medicare Wellness for age 65+ 2013 Pneumococcal series for age 65+ (1 of 1 - PCV) 2013 RSV vaccine for adults or (1 - 1-dose 75+ series) 2023 BMI (ht and wt on same day) for age 18+ 09/13/2023 09/13/2022, 08/31/2021, 10/13/2020 COVID-19 vaccine series ( season) 2024 09/20/2022, 04/19/2022, 11/23/2021, Additional history exists Influenza for age 65+ 06/30/2024 Advance Directives * Full Code (Latest Code Status on File) Date Activated Date Inactivated Comments 07/20/2020 10:07 AM 07/20/2020 6:32 PM Question Answer Comments Code Status Discussion: Discussed Care Teams Skip Miner Relationship Specialty Start Date End Date Daly Silveira MD [address] [place] [address] PCP - General Internal Medicine 07/02/20
--- OUTSIDE RECORDS SUMMARY | 2024-09-02 15:54 | XMS_ITS | Encounter Summary ---
Author Organization [facility] Address [address], [place] [address] Care Team Providers Care Refrigeration Engineering Teacher Name Role Phone Daly Silveira MD Primary Care Provider [phone]- [phone] Reason for Visit * Reason Comments Follow-up Patient presents tod ay for follow up of rash. Punch biopsy done at last visit on 05/21/2024 was inconclusive. Patient was started on betamethasone. Pt feels that rash has improved. (CHECK SUTURES ON LEFT ELBOW ARE OUT). Encounter Details Date Type Department Care Team (Late st Contact Info) Description 07/09/2024 9:45 AM CDT Office Visit [place] [address] [address] [place] [address] Vania Cohen MD [address] [place] [id number] Rash (Primary Dx) Social History Tobacco Use Types [...] this encounter Patient Instructions * Patient Instructions* Vania Johnson LPN - 07/09/2024 9:45 AM CDT Follow up instructions: -For the rash -ok to continue applying betamethasone to legs for a couple of weeks. Stop the betamethasone unless you have a flare. -Start tacrolimus twice a day as needed for itching. Try to avoid any harsh products like Ivory or Dial. Try to use only hypoallergenic products. documented in this encounter Progress Notes * Vania Cohen MD - 07/09/2024 9:45 AM CDT Problem List Dermatology Problems History of squamous cell carcinoma of skin Overview SCCis Right Posterior Mandible, referred to Mohs [...] post-auricular scalp, s/p mohs 11/12/2015 SCCis, left gnosticism, s/p efudex 10/2015 SCCis, right lateral orbital rim, s/p Mohs 08/28/2015 SCC, right cheek, s/p MMS 05/2015 SCC, left jaw line, s/p MMS 05/2015 SCC, right postauricular neck, s/p MMS 04/2015 SCC, left postauricular neck, s/p MMS 04/2015 SCC, left cheek, s/p MMS 03/2015 SCC, left gnosticism, s/p MMS 03/2015 Multiple other NMSC's in past treated at [facility] History of actinic keratosis Overview Biopsied proved actinic keratoses: Right lateral cheek, traumatized actinic keratosis, 11/2015 Left lateral cheek, 11/2015 Occipital scalp, 10/2015 Left superior helix, bowenoid actinic keratosis 10/2015 History of basal cell carcinoma Overview BCC, right preauricular cheek, s/p Mohs 06/27/2017 04/12/2024 Right Dorsal Hand, Basal cell carcinoma, nodular type, present at deep biopsy margin. Needs Mohs Chief Complaint Patient presents with Follow-up Patient presents today for follow up of rash. Punch biopsy done at last visit on 05/21/2024 was inconclusive. Patient was started on betamethasone. Pt feels that rash has improved. (CHECK SUTURES ON LEFT ELBOW ARE OUT). History of Present Illness: Sonny Van is a 74 y.o. male who presents to clinic today for recheck of rash. He states it seems to be improved with betamethasone. Past skin history: Numerous NMSC Past Medical History- reviewed. Physical Examination: General: Well-appearing male, in no distress, alert and oriented. Skin: Pertinent findings noted in problem list below. Exam otherwise was normal. DERM findings, Assessment and Plan: 1. Rash Left Arm, Neck, Right Arm Faint patches of erythema on the arms Overall doing well. Differential diagnosis is actinic prurigo versus photo contact dermatitis. Haveconsidered referral for patch testing but as this is currently entering harvest season he would like to hold off. May consider at his follow-up appointment. I will plan to have her return to clinic in 3 months for recheck Related Medications fluocinonide (LIDEX) 0.05 % ointment Apply topically two times a day. Apply twice daily to areas of rash on both arms and back of neck, avoid face, armpits and groin. tacrolimus (PROTOPIC) 0.1 % ointment Apply to arms and back of neck twice a day as needed for itching. Orders Placed This Encounter tacrolimus (PROTOPIC) 0.1 % ointment Follow up: Return to clinic 3m documented in this encounter Plan of Treatment Upcoming Encounters Date Type Department Care Team (Late st Contact Info) Description 10/08/2024 10:30 AM CITY CLERK Appointment [facility] [address] [place] [address] 10/08/2024 11:00 AM CITY CLERK Office Visit [facility] [address] [place] [address] Sujatha Parra MD [address] [facility] [address] [place] [address] 10/11/2024 9:45 AM CITY CLERK Appointment [facility] [address] D[address] [place] [address] Vania Cohen MD [address] [place] [address] documented as of this encounter Visit Diagnoses Diagnosis Rash- Primary Rash and other nonspecific skin eruption documented in this encounter Care Teams Refrigeration Engineering Teacher Relationship Specialty Start Date End Date Daly Silveira MD [address] [place] [address] PCP - General Internal Medicine 04/08/22 documented as of this encounter
--- OUTSIDE RECORDS SUMMARY | 2024-09-02 15:54 | XMS_ITS | Encounter Summary ---
Author Organization [facility] Address [address], [place] [address] Care Team Providers Care Car Jockey Name Role Phone Daly Silveira MD Primary Care Provider [phone]- [phone] Reason for Referral * Procedure/Equipment (Routine) - Incomplete Specialty Diagnoses / Procedures Referred By Nikki t Referred To Contact Diagnoses Incomplete bladder emptying Procedures Case Request OR - Urology Surgery: TRANSURETHRAL RESECTION OF THE PROSTATE Guru Jamison MD [address] [employer] [place] [address] Referral ID Status Reason Start Date Expiration Date V isits Requested Visits Authorized [id number] Incomplete 07/02/2024 10/01/2025 1 1 Reason for Visit * Reason Comments Procedure Encounter Details Date Type Department Care Team (Late st Contact Info) Description 07/02/2024 10:15 AM CDT Procedure Visit [facility] [address] [address] [address] [place] [address] Guru Jamison MD [address] [place] [id number] Procedure Social History Tobacco Use Types Packs/Day Years [...] as of this encounter Progress Notes * Guru Jamison MD - 07/02/2024 10:15 AM CDT Urology Clinic Follow-up Chief Complaint: Urinary retention Subjective: Sonny Van is a 74 y.o. male who returns for follow-up of urine retention. In early 2023 he had an MRI that showed an incidental sacral mass, and also a distended and trabeculated bladder. He was started on Flomax, but still was retaining a significant amount of urine. He had a urodynamic study in April 2024 that showed a bladder capacity of 1.2 L with good compliance and a severely delayed sensation of filling. However, he did have a pretty strong terminal detrusor contraction of nearly 100 cm H2O. He was referred to me for an outlet procedure. Objective: There were no vitals filed for this visit. Constitutional: Alert, cooperative, no distress, appears stated age Head: Normocephalic, without obvious abnormality, atraumatic Eyes: Extraocular eye movements intact, conjunctiva/corneas clear, no drainage. Respiratory: No increased work of breathing, no audible wheezing. Cardiovascular: No peripheral edema. Good peripheral circulation Musculoskeletal: No extremity abnormalities, appropriate range of motion. Abdomen/GI: Soft, non-tender, non-distended. No masses. : Normal external genitalia without lesion, discharge or tenderness Psychiatric: Normal mood, appropriate affect. Neurologic: No obvious neurologic defects, cranial nerves grossly intact. Lab Review Lab Results Component Value Date WBC 11.6 (H) 03/25/2021 WBC 10.0 10/04/2018 HGB 15.0 03/25/2021 HGB 15.8 10/04/2018 HCT 46.6 03/25/2021 HCT 48.7 10/04/2018 MCV 88.6 03/25/2021 MCV 87.1 10/04/2018 PLTS 232 03/25/2021 PLTS 234 10/04/2018 Lab Results Component Value Date CREATININE 1.4 (H) 10/31/2023 CREATININE 1.50 (H) 03/24/2023 CREATININE 1.20 (H) 05/30/2017 BUN 30 (H) 03/24/2023 BUN 21 05/30/2017 Imaging Review: Pelvic MRI-12/19/2023- IMPRESSION: 1. There is a well-circumscribed mildly expansile lesion in the right inferior sacrum as described above which is unchanged. 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 There are no aggressive features. The above imaging was personally reviewed and the results discussed with the patient. PROCEDURE NOTE: Procedure Performed: Flexible cystourethroscopy Indication for procedure: Urinary retention Description of Procedure: The patient was given pre-procedural antibiotics. The patient was preppedand draped in the usual sterile fashion in the supine position. A flexible cystoscope was advanced per urethra into the bladder. There were no urethral abnormalities. The prostate was mildly enlargedwith lateral lobe coaptation. Once inside the bladder, pancystoscopy was performed. The bilateral ureteral orifices were identified in orthotopic position without abnormality. The bladder was severely trabeculated. No abnormalities on retroflexion. The cystoscope was removed. The patient tolerated the procedure well. Assessment: Urinary retention Plan: He has a significant degree of urinary retention with some degree of detrusor contractility on urodynamic study. We discussed his options going forward including intermittent catheterizations versus an outlet procedure. He would like to do everything he can to avoid having to catheterize himself, so we decided to move forward with a bipolar TURP. We discussed the details of that procedure as wellas the potential risks involved. We discussed the expected outcomes. We did discuss the possibilityof continued retention even after a TURP. He would like to take a few days to think about it, so I will have my imaging scheduler reach out to him likely sometime next week to see if he would like to move forward. documented in this encounter Plan of Treatment Upcoming Encounters Date Type Department Care Team (Late st Contact Info) Description 10/08/2024 10:30 AM FOLLOW UP REP Appointment [facility] [address] [place] [address] 10/08/2024 11:00 AM FOLLOW UP REP Office Visit [facility] Pul[facility] Medicine [address] [place] [address] Sujatha Parra MD [address] [place] [address] [address] [place] [address] 10/11/2024 9:45 AM FOLLOW UP REP Appointment [facility] [address] Derm[address] [place] [address] Vania Cohen MD [address] [place] [address] documented as of this encounter Visit Diagnoses Diagnosis Incomplete bladder emptying- Primary OAB (overactive bladder) Hypertonicity of bladder documented in this encounter Administered Medications Inactive Administered Medications - up to 3 most recent administrations Medication Order MAR Action Action Date Dose Rate Site cephalexin (KEFLEX) capsule 500 mg 500 mg, Oral, ONCE, On Mon07/02/24 at 1030, For 1 dose, Indications: Surgical Prophylaxis Given 07/02/2024 10:12 AM CDT 500 mg lidocaine (UROJET) 2 % gel prefilled syringe Urethral, ONCE, On Mon07/02/24 at 1030, For 1 dose Given 07/02/2024 10:12 AM CDT 10 mL documented in this encounter Care Teams Car Jockey Relationship Specialty Start Date End Date Daly Silveira MD [address] [place] [address] PCP - General Internal Medicine 04/08/22 documented as of this encounter
--- OUTSIDE RECORDS SUMMARY | 2024-09-02 15:54 | XMS_ITS | Encounter Summary ---
Author Organization [facility] Address [address], [place] [address] Care Team Providers Care Devulcanizer Head Name Role Phone Daly Silveira MD Primary Care Provider [phone]- [phone] Reason for Visit * Reason Comments RASH Patient presents tod ay for rash on left and right forearms and neck. Patient prescribed fluocinonide ointment one month ago. Noted at last visit If not improved at his follow-up appointment will plan for punch biopsy to further evaluate and may consider DIF at that time as well.Patient notes seems to be better. Encounter Details Date Type Department Care Team (Late st Contact Info) Description 05/21/2024 8:45 AM CDT Office Visit [place] [address] [place] [address] Matthew Cohen MD [address] [place] [address] Rash (Primary Dx); Neoplasm of skin (HRC); Abrasion Social History Tobacco Use Types Packs/Day Years [...] this encounter Patient Instructions * Patient Instructions* Bárbara Valencia RN - 05/21/2024 8:45 AM CDT *You can use DuoDerm for abrasion on left pentecostal for up to 1 week at a time. Care Instructions after a Punch Biopsy/Surgery Sutures come out in 2 weeks - MondayJune 04 When do I start changing the bandage on my punch biopsy/surgery site? Leave the original bandage/dressing in place for 24 to 48 hours. If you develop bleeding from the site, apply firm pressure directly over the bandage, using the heel of your hand, for [address] another bandage on top of the first one - don???t keep removing and replacing dressings. NO PEEKING! Notify us if the bleeding still does not stop. How do I change the bandage on my punch biopsy/surgery site? Clean the area once a day with warm soap and water. Gently pat dry the area. Use a cotton-tipped applicator to gently remove any crust or scab that has formed over your sutures. After the area has been cleaned and is dry, apply a small amount of petroleum jelly or Aquaphor healing ointment and apply a new bandage. We prefer that you do not use an antibacterial ointment (i.e. bacitracin, Neosporin) as many people develop a hypersensitivity including a rash and even blistering related to these. Is it okay to shower after having a punch biopsy/surgery? Showering is okay, but please do not soak in a bathtub, hot tub, or pool. This will slow the healing process and may create infection. When can I stop bandaging my punch biopsy/surgery site? Continue the wound care process until stitches are removed. Complete healing usually takes 2-4 weeks. Wounds heal best when kept moist, try not to let the area dry out. Letting them open to air, drying out, and having a scab form actually causes wounds to take longer to heal. If your skin is getting sensitive to the bandage, use gauze and paper tape. Can I exercise after having a punch biopsy/surgery? Avoid exercising for 2 days and with stitches, you will want to restrict your physical activity to avoid strenuous movements that will cause stretching and pulling of the skin for 2 weeks. What signs or symptoms should I call the dermatology department about? Infection after a biopsy or surgery is not likely, but can occur. Mild amounts of redness, bruising, swelling, discomfort and a clear to yellowish to blood- tinged discharge are normal. Signs of Infection include: fever, increasing pain, blood blister, drainage of pus, and extreme heat from the site. Please call the clinic if you experience any of these symptoms. When should my sutures be removed? Your care team will help you schedule a suture removal appointment. Depending on the location on your body, sutures are usually removed within 5-14 days. When will I receive my skin biopsy results? Your skin biopsy specimen will be sent to our laboratory for processing. Your clinician will contact you with the results of this pathology report when it is available. Typically you will be contacted 7 to 14 days after your biopsy or procedure. Our pathology services will be listed separately on your bill. If you have further questions about the biopsy process or if you have not received your biopsy results within 2 weeks, please call the clinic. Care Instructions after a shave skin biopsy/removal When do I start changing the bandage on my wound site? Leave the original bandage/dressing in place for 24 to 48 hours. If you develop bleeding from the site, apply firm pressure directly over the bandage, using the heel of your hand, for [address] another bandage on top of the first one - don't keep removing and replacing dressings. NO PEEKING! Notify us if the bleeding still does not stop. How do I change the bandage on my wound? Clean the area once a day with warm soap and water. Gently pat dry the area. After the area has been cleaned and is dry, apply a small amount of petroleum jelly or Aquaphor healing ointment and apply a new bandage. We prefer that you do not use an antibacterial ointment (i.e. bacitracin, Neosporin) as many peopledevelop a hypersensitivity including a rash and even blistering related to these. Is it okay to shower after having a skin biopsy/removal? Showering is okay, but please do not soak in a bathtub, hot tub, or pool. This will slow the healing process and may create infection. When can I stop bandaging my wound? Continue the wound care process until the area is healed. Complete healing usually takes 2-4 weeks.Wounds heal best when kept moist, try not to let the area dry out. During this process you may see a white film develop over your wound and this is part of the normal healing process. Letting them open to air, drying out, and having a scab form actually causes wounds to take longer to heal. If yourskin is getting sensitive to the bandage, use gauze and paper tape. Can I exercise after having a skin biopsy/removal? Avoid exercising for 2 days. What signs or symptoms should I call the dermatology department about? Infection after a biopsy is not likely, but can occur. Mild amounts of redness, bruising, swelling,discomfort and a clear to yellowish to blood-tinged discharge are normal. Signs of Infection include: fever, increasing pain, blood blister, drainage of pus, and extreme heat from the site. Please call the clinic if you experience any of these symptoms. When will I receive my skin biopsy/removal results? Your skin biopsy specimen will be sent to our laboratory for processing. Your clinician will contact you with the results of this pathology report when it is available. Typically you will be contacted 7 to 14 days after your biopsy or procedure. Our pathology services will be listed separately on your bill. If you have further questions about the biopsy process or if you have not received your biopsy results within 2 weeks, please call the clinic. 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 Patient prescribed fluocinonide ointment one month ago. Noted at last visit If not improved at his follow-up appointment will plan for punch biopsy to further evaluate and may consider DIF at that time as well. Patient notes seems to be better. History of Present Illness: Sonny Van is a 73 y.o. male who presents to clinic today for full skin check. He has a few scaly spots that he would like examined particular. Past skin history: Numerous NMSC Past Medical History- reviewed. 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 Skin: Pertinent findings noted in problem list below. Exam otherwise was normal. DERM findings, Assessment and Plan: Orders Placed This Encounter Direct Immunofluorescence (DIF) - Skin Surgical Path, Dermatology Skin Biopsy (No CPT) Shave removal 1. Rash Left Elbow - Posterior [place] firm excoriated papules in a photo distributed fashion on the arms and neck Failed to resolve the fluocinonide elect to do a punch biopsy and DIF to further evaluate. Will hold off any additional treatment at this point time but call with results. Skin Biopsy (No CPT) - Left Elbow - Posterior Type of biopsy: punch Direct Immunofluorescence (DIF) - Skin - Left Elbow - Posterior Specimen 1 - Surgical Path, Dermatology Clinical Impression: photo contact dermatitis vs actinic prurigo vs PCT vs SCLE Related Medications fluocinonide (LIDEX) 0.05 % ointment Apply topically two times a day. Apply twice daily to areas of rash on both arms and back of neck, avoid face, armpits and groin. 2. Neoplasm of skin (HRC) Right Forearm - Posterior 1 cm firm nodule Shave removal Lesion diameter (cm): 1 Informed consent: discussed and consent obtained Timeout: patient name, date of , surgical site, and procedure verified Anesthesia: the lesion was anesthetized in a standard fashion Anesthetic: 1% lidocaine plain local infiltration Instrument used: DermaBlade Hemostasis achieved with: aluminum chloride Outcome: patient tolerated procedure well Outcome comment: The lesion was removed in it's clinical entirety. Post-procedure details: wound care instructions given Specimen 2 - Surgical Path, Dermatology Clinical Impression: NMSC 3. Abrasion Left [place] Traumatic abrasion with crusting noted. Recommended application of duoderm in clinic. Discussed that this could be left in place for 7 days, then replaced as needed. Will recheck at follow up Follow up: Return to clinic 4 weeks, recheck rash. documented in this encounter Plan of Treatment Upcoming Encounters Date Type Department Care Team (Late st Contact Info) Description 10/08/2024 10:30 AM WOMEN'S MINISTRY DIRECTOR [facility]ment [facility] [address] [place] [address] 10/08/2024 11:00 AM WOMEN'S MINISTRY DIRECTOR Office [facility] [address] [place] [address] [place] [address] [place] [address] [address] [place] [address] 10/11/2024 9:45 AM WOMEN'S MINISTRY DIRECTOR Appointment [facility] [address] Dermatology [address] [place] [address] Matthew Cohen MD [address] [place] [address] documented as of this encounter Procedures Procedure Name Priority Date/Time Associated Diagnosis Comments DIRECT IMMUNOFLUORESCENCE (DIF) - SKIN Routine 05/21/2024 9:08 AM CDT Rash EPIDERMAL / DERMAL SHAVING Routine 05/21 9:06 AM CDT Neoplasm of skin (HRC) SKIN BIOPSY Routine 05/21/2024 9:05 AM CDT Rash SURGICAL PATHOLOGY, DERMATOLOGY Routine 05/21/2024 9:05 AM CDT Rash Neoplasm of skin (HRC) documented in this encounter Results * Direct Immunofluorescence (DIF) - Skin (05/21/2024 9:08 AM CDT) Case Report Direct Immunofluorescence ? Case: [id number] ? Authorizing Provider: ??Matthew Cohen MD ?? Collected: ? 05/21/2024 0908 ? Ordering Location: ? [place] [address] ? Received: ?05/21/2024 1121 ? Dermatology ? Pathologist: ? Daly Harris MD ? Specimen: ?Skin punch, Elbow, left ? 05/22/2024 4:52 PM [facility] FINAL DIAGNOSIS A. Skin, Elbow, left, punch, direct immunofluorescence examination of tissue: Negative/non-specifi c (see comment) Comment: There are cytoid bodies focally at the basement membrane zone on IgA, IgM and C3. This is a non-specific finding which can be seen in interface processes. Correlation with the corresponding H&E specimen is recommended. 05/22/2024 4:52 PM [facility] Clinical Information rash 05/22/2024 4:52 PM [facility] Microscopic Description Microscopic examination is performed. Direct immunofluorescence studies show: IgG: Negative IgA: Positive, cytoid bodies (nonspecific) IgM: Positive, cytoid bodies (nonspecific) C3: Positive, cytoid bodies (nonspecific) Fibrinogen: Negative 05/22/2024 4:52 PM [facility] Special Stains The stain controls have been reviewed and stain appropriately. 05/22/2024 4:52 PM [facility] Gross Description A: The specimen is received in Jadon's fixative and labeled with the patient's name and Skin punch, Elbow, left. The specimen consists of a 0.3 cm in diameter by 0.2 cm in depth skin punch biopsy. The specimen is placed back in the labeled vial of Jadon's fixative, and submitted for direct immunofluorescence studies. NA 05/22/2024 4:52 PM [facility] Embedded Images 05/22/2024 4:52 PM [facility] Skin SKIN PUNCH BIOPSY SPECIMEN / Unknown 05/21/2024 9:08 AM CDT 05/21/2024 11:21 AM CDT Matthew Swann MD LAB PATHOLOGY [address] [address], [facility] * Shave removal (05/21/2024 9:06 AM CDT) Narrative EXTERNAL RESULTS - 05/21/2024 9:06 AM CDT Lesion diameter (cm): ??1 Informed consent: discussed and consent obtained ?? Timeout: patient name, date of , surgical site, and procedure verified ?? Anesthesia: the lesion was anesthetized in a standard fashion ?? Anesthetic: ??1% lidocaine plain local infiltration Instrument used: DermaBlade ?? Hemostasis achieved with: aluminum chloride ?? Outcome: patient tolerated procedure well ?? Outcome comment: ??The lesion was removed in it's clinical entirety. Post-procedure details: wound care instructions given ?? Matthew Swann MD DERM PROCEDURE OR DERABLES Performing Organization Address [facility]/ZIP Co de Phone Number EXTERNAL RESULTS * Skin Biopsy (No CPT) (05/21/2024 9:05 AM CDT) Narrative EXTERNAL RESULTS - 05/21/2024 9:05 AM CDT Type of biopsy: punch ?? Matthew Swann MD DERM PROCEDURE OR DERABLES Performing Organization Address City/[facility] Co de Phone Number EXTERNAL RESULTS * Surgical Path, Dermatology (05/21/2024 9:05 AM CDT) Case Report Surgical Pathology Report ? Case: [id number] ? Authorizing Provider: ??Matthew Cohen MD ?? Collected: ? 05/21/2024 0905 ? Ordering Location: ? [place] [address] ? Received: ?05/21/2024 1312 ? Dermatology ? Pathologist: ? Jori Mendoza MD ? Specimens: ?? A) - Skin, Left Elbow - Posterior ? B) - Skin, Right Forearm - Posterior ? 05/27/2024 11:49 AM CDT [facility] DERMATOLOGY FINAL DIAGNOSIS A. Skin, Left Elbow - Posterior, punch: - Dermal fibrosis and telangiectasia in sun-damaged skin, see comment. COMMENT (A):: The histologic findings (see microscopic description) favor an area of scar in sun damaged skin, and raises the possibility of a traumatized actinic keratosis.. The histologic features of actinic prurigo are nonspecific, and this condition is not completely excluded. The blister, basement membrane zone thickening, and caterpillar bodies typically associated with porphyria are not observed. Epidermal spongiosis typical of a contact dermatitis is not observed. Clinical correlation is advised with additional tissue sampling if clinically indicated. B. Skin, Right Forearm - Posterior, shave: - Cystic squamous invagination with copious neutrophils and overlying acanthosis, transected, see comment. COMMENT: The histologic findings favor ruptured folliculitis, and the histologic differential diagnosis includes the surface of a ruptured cyst, sinus tract, or other cystic neoplasm with overlying lichen simplex chronicus. The base of the lesion is not completely visualized, and a more concerning histologic process is not excluded in the deeper tissues. If a lesion persists or recurs, or if malignancy remains a clinical concern, additional deeper sampling is advised. 05/27/2024 11:49 AM CDT [facility] [address] DERMATOLOGY Clinical Information A: Clinical Impression: photo contact dermatitis vs actinic prurigo vs PCT vs SCLE B: Clinical Impression: NMSC 05/27/2024 11:49 AM [facility] 3800 DERMATOLOGY Microscopic Description A-B. Microscopic examination is performed. A. The microscopic findings reveal epidermal effacement with overlying focal hyperkeratosis. The granular layer is preserved. The basement membrane zone does not appear thickened. In the underlying superficial dermis is a focus of thickened collagen bundles and dilated vascular channels that displace solar elastosis in the dermis toward the edges of the sampled tissue. A PAS stain performed with proper positive control does not reveal evidence of a fungal infection. PAS stain does not reveal thickening of the basement membrane zone, nor the vascular lumens. A subepidermal blister is not observed. Epidermal spongiosis and prominent dermal eosinophils are not observed. The process extends to the sampled tissue margins. 05/27/2024 11:49 AM [facility] 3800 DERMATOLOGY Special Stains The stain controls have been reviewed and stain appropriately. 05/27/2024 11:49 AM [facility] 3800 DERMATOLOGY Technical Information A portion of the technical [place] [address]. 05/27/2024 11:49 AM [facility] 3800 DERMATOLOGY Gross Description A: Received in formalin, labeled with the patient's name and Skin, Left Elbow - Posterior is a 4 x 4 x 4 mm punch of skin. The specimen is marked with black ink, bisected, and submitted entirely in one cassette. B: Received in formalin, labeled with the patient's name and Skin, Right Forearm - Posterior is a 15 x 11 x 4 mm shave of skin. The specimen is marked with green ink, quadrisected, and submitted entirely in one cassette. TV 05/27/2024 11:49 AM [facility] 3800 DERMATOLOGY Embedded Images 05/27/2024 11:49 AM [facility] 3800 DERMATOLOGY Skin (Skin) 05/21/2024 9:05 AM CDT 05/21/2024 1:12 PM CDT Comment:Clinical Impression: photo contact dermatitis vs actinic prurigo vs PCT vs SCLE Skin structure (body structure) (Skin) 05/21/2024 9:06 AM CDT 05/21/2024 1:12 PM CDT Comment:Clinical Impression: [facility] Matthew Swann MD LAB PATHOLOGY [facility] [address] DERMAT[address]Y [address] [place] [address], [facility] documented in this encounter Visit Diagnoses Diagnosis Rash- Primary Rash and other nonspecific skin eruption Neoplasm of skin (HRC) Neoplasm of unspecified nature of bone, soft tissue, and skin Abrasion Abrasion or friction burn of other, multiple, and unspecified sites, without mention of infection documented in this encounter Care Teams Devulcanizer Head Relationship Specialty Start Date End Date Daly Silveira MD [address] [place] [address] PCP - General Internal Medicine 04/08/22 documented as of this encounter
--- OUTSIDE RECORDS SUMMARY | 2024-09-02 15:54 | XMS_ITS | Encounter Summary ---
[facility] Organization [facility] Address [address] [address] Care Team Providers Care General Contractor Name Role Phone Daly Silveira MD Primary Care Provider [phone]- [phone] Reason for Visit * Procedure/Equipment (Routine) - Incomplete Specialty Diagnoses / Procedures Referred By Nikki t Referred To Contact Diagnoses Acquired renal cyst of right kidney Complex renal cyst Procedures MR Abd W/WO IV Cont Razia Ochoa PA-C [address] [place] [address] Referral ID Status Reason Start Date Expiration Date V isits Requested Visits Authorized [id number] Incomplete 05/17/2024 08/16/2025 1 1 Encounter Details Date Type Department Care Team (Late st Contact Info) Description 07/16/2024 8:30 AM CDT Ancillary Procedure [facility] [address] [address] [place] [address] [place] [address] Razia Ochoa PA-C [address] [place], [place] [id number] Acquired renal cyst of right kidney; Complex renal cyst Social History Tobacco Use Types Packs/Day Years [...] st Contact Info) Description 10/08/2024 10:30 AM WAITER/WAITRESS SECOND CLASS [facility]ointment [facility] Pulmonary Lab [address] [facility] [place] [address] 10/08/2024 11:00 AM WAITER/WAITRESS SECOND CLASS Office Visit [facility] Pulmonary Medicine [address] [place] [address] Sujatha Parra MD [address] [facility] [address] [place] [address] 10/11/2024 9:45 AM WAITER/WAITRESS SECOND CLASS Appointment [facility] [address] [place] [address] Vania Cohen MD [address] [place], [place] [id number] documented as of this encounter Procedures Procedure Name Priority Date/Time Associated Diagnosis Comments MR ABD W/WO IV CONT Routine 07/16/2024 8 :45 AM CDT Acquired renal cyst of right kidney Complex renal cyst documented in this encounter Results * MR Abd W/WO IV Cont [...] of the posterior right kidney is a [id number] T1 and intermediate partially exophytic lesion measuring [...] in 1 year would each beappropriate. Razia Ochoa PA-C RAD MRI documented in this encounter Visit Diagnoses Diagnosis Acquired renal cyst of right kidney Acquired cyst of kidney Complex renal cyst Other specified congenital cystic kidney disease documented in this encounter Administered Medications Inactive Administered Medications - up to 3 most recent administrations Medication Order MAR Action Action Date Dose Rate Site gadobutrol (GADAVIST) 1 MMOL/ML injection 10 mL 10 mL, Intravenous, ONCE, On Mon07/16/24 at 0830, For 1 dose Given 07/16/2024 8:44 AM CDT 10 mL sodium chloride 0.9% bolus 100 mL 100 mL, Intravenous, Administer over 1 Hours, ONCE, On Mon07/16/24 at 0830, For 1 dose Started 07/16/2024 8:42 AM CDT 100 mL sodium chloride 0.9% injection 10 mL 10 mL, Intravenous, ONCE, On Mon07/16/24 at 0830, For 1 dose Given 07/16/2024 8:43 AM CDT 10 mL documented in this encounter Care Teams General Contractor Relationship Specialty Start Date End Date Daly Silveira MD [address] [place] [address] PCP - General Internal Medicine 04/08/22 documented as of this encounter
--- OUTSIDE RECORDS SUMMARY | 2024-09-02 15:54 | XMS_ITS | Encounter Summary ---
Author Organization [employer] Address [address], [place] [address] Care Team Providers Care Instructor Substitute Cosmetology Name Role Phone Daly Silveira MD Primary Care Provider [phone]- [phone] Reason for Visit * Reason Comments Follow-up, NOS Encounter Details Date Type Department Care Team (Late st Contact Info) Description 07/12/2024 9:30 AM CDT [facility] [address] [place] [address] Razia Ochoa PA-C [address] [place] [address] Bladder outlet obstruction (Primary Dx); Incomplete bladder emptying; Enlarged prostate; Bladder trabeculation; Complex renal cyst; Renal cyst, right; Sacral mass (HRC); Urinary retention Social History Tobacco Use Types Packs/Day Years [...] as of this encounter Progress Notes * Razia Ochoa PA-C - 07/12/2024 9:30 AM CDT CC: Follow up urinary retention, enlarged prostate. S: Sonny is a pleasant 74 year old male with h/o benign sacral mass, enlarged prostate and urinary retention who returns today for scheduled f/u. Please see previous notes for full historical details. Briefly in summary: - 12/08/2023 OV with [facility] for abnormal imaging review; underwent MRI for renal cyst surveillance and incidental sacral mass was identified, CT revealed a focal expansile deformity of the sacrum ... Non-aggressive appearance favoring indolent fibro-osseous lesion such as fibrous dysplasia, enchondroma or even Paget's diease, bony pelvis MRI advised, patient c/o tailbone bone pain for 2 years, pressure relieved sleeping on back, h/o multiple falls w/o specific incident; incidental findings oftrabeculated bladder, c/o weak stream, no leakage - sacral mass led to incidental identification of urinary retention - 01/2024 initiated Flomax 0.4 mg - 04/2024 UDS revealed 1266 mL capacity, compliant bladder with marked delay in sensation of bladder filling (FS 1038 mL, FD 1127 mL, SD 1266 mL), terminal Pdet 97.5 cm H2O, PVR 650 mL - initial PVR 891 mL Interval HPI: - after reviewing UDS we agreed to proceed with a cystoscopy; we also discussed doing a MRI to better characterize his complex right renal cyst - 07/02/2024 cysto with Shaheen revealed mild prostate enlargement with lateral lobe coaptation, severe bladder trabeculation, discussed bipolar TURP - voiding 5-6 times per day - occasional urgency at night - no bed wetting - using a urinal at night time - waking 0-1 times at night - no hesitancy - flow is strong - no marked increased voiding times - not chomping at the bit to do surgery - not wanting to use a catheter O: VSS. No acute respiratory distress. No CVATB. Very pleasant. 10/20/2023 - MRI abd w/wo contrast: IMPRESSION: 1. Unchanged 1.3 cm probable hemorrhagic/proteinaceous cyst in the interpolar right kidney without definite enhancement and additional unchanged simple and hemorrhagic/proteinaceous renal cysts. Can consider follow-up MRI in one year to ensure ongoing stability. 2. Indeterminate possible soft tissue mass versus irregular cyst adjacent to the right sacrum is incompletely visualized, recommend dedicated CT or MR of the pelvis non-emergently for further evaluation. A: - Incomplete bladder emptying/urinary retention. - Enlarged prostate. - Bladder outlet obstruction (BLAIR). - Bladder trabeculation. - Complex right renal cyst. - Benign sacral mass. P: - Sonny and I had a good discussion today about Dr. Jamison's cysto findings and recommendations forbipolar TURP. He reports little in the way of bothersome LUTS at this time; minimal nocturia, flow is pretty good, voiding 5-6 times per day, no leakage. We discussed that with time his terminal bladder function will decompensate we just don't know how quickly. As such, we've agreed to repeat urodynamics again in 1 year. - We also discussed previously advised renal mass protocol MRI to better characterize his complex right renal cyst (this is suspected to be hemorrhagic/proteinaceous). MRI order is in and we'll get this scheduled. - Continue timed voiding given delayed sensation of bladder filling. - Continue Flomax 0.4 mg. Refilled. - Will call with MRI results and have patient f/u for UDS results review in a year after repeat testing. Thanks, Suri Ochoa PA-C Department of Urologic Surgery TT: 30 minutes spent in pre-visit review of the medical record, the visit itself, post-visit orders, coordination of care and documentation. documented in this encounter Plan of Treatment Upcoming Encounters Date Type Department Care Team (Late st Contact Info) Description 10/08/2024 10:30 AM LACQUER SPRAYER [facility] [address] Pul[address] Lab [address] [place] [address] 10/08/2024 11:00 AM LACQUER SPRAYER Office Visit [facility] [address] Pulmonary Medicine [address] [place] [address] Sujatha Parra MD [address] [facility] [address] [place], [place] [address] 10/11/2024 9:45 AM LACQUER SPRAYER Appointment [facility] [address] Derm[address] [facility] [place] [address] Vania Cohen MD [address] [place] [address] [phone] documented as of this encounter Visit Diagnoses Diagnosis Bladder outlet obstruction- Primary Urinary obstruction, unspecified Incomplete bladder emptying Enlarged prostate Hypertrophy of prostate without urinary obstruction and other lower urinary tract symptoms (LUTS) Bladder trabeculation Other specified disorders of bladder Complex renal cyst Other specified congenital cystic kidney disease Renal cyst, right Unspecified congenital cystic kidney disease Sacral mass (HRC) Disorders of sacrum Urinary retention Retention of urine, unspecified documented in this encounter Care Teams Instructor Substitute Cosmetology Relationship Specialty Start Date End Date Daly Silveira MD [address] [place] [address] PCP - General Internal Medicine 04/08/22 documented as of this encounter
== END 2024-08-30 08:06 | disposition home or self-care (01) ==
LOC: NFLDREF 09-02 15:51
PROVIDERS: PCP Internal Medicine; Referring Provider Internal Medicine; Visit Provider Internal Medicine
DX: I10 Essential (primary) hypertension (principal); E78.5 Hyperlipidemia, unspecified
CPT/HCPCS: 80048; 80061

== ENCOUNTER 2024-12-28 10:53 | Emergency (ER) | payer OTHER, SELFPAY ==
[2024-12-28 11:03] VITALS: BP 108/77; PULSE 62; RESP 16; TEMP 36.4; O2SAT 95; BMI 29.0
--- NOTE | 2024-12-28 11:25 | ED.EPISTAXIS ---
History of Present Illness General Chief Complaint: Epistaxis/Nosebleed Stated Complaint: bloody nose Time Seen by Provider: 12/28/24 11:19 History of Present Illness HPI Narrative: This 74-year-old male comes in with a nose bleed that started about an hour and half prior to arrival. It continued for about 10 minutes and then stop for about half an hour. His bleeding has resume now. He does not report any lightheadedness or shortness of breath. He does take a regular strength aspirin daily. Related Data Home Medications ?Medication ?Instructions ?Recorded ?Confirmed albuterol sulfate 90 mcg/actuation g inhalation 10/10/22 09/02/24 aerosol inhaler alprazolam 0.5 mg tablet 0.5 mg PO QDAY PRN 10/10/22 09/02/24 aripiprazole 5 mg tablet 5 mg PO DAILY 10/10/22 09/02/24 aspirin 325 mg tablet 325 mg PO QDAY 10/10/22 09/02/24 benzonatate 100 mg capsule ea PO 10/10/22 09/02/24 budesonide 0.5 mg/2 mL suspension 0.5 mg inhalation QDAY PRN 10/10/22 09/02/24 for nebulization cholecalciferol (vitamin D3) 25 2,000 unit PO DAILY 10/10/22 09/02/24 mcg (1,000 unit) capsule clonazepam 1 mg tablet 1 mg PO QDAY PRN 10/10/22 09/02/24 fluticasone furoate 200 1 inhalation DAILY 10/10/22 09/02/24 mcg-vilanterol 25 mcg/dose inhalation powder ipratropium 0.5 mg-albuterol 3 mg ml inhalation 10/10/22 09/02/24 (2.5 mg base)/3 mL nebulization soln loratadine 10 mg tablet 10 mg PO DAILY 10/10/22 09/02/24 metoprolol succinate 50 mg ea PO 10/10/22 09/02/24 tablet,extended release 24 hr mirtazapine 45 mg tablet 45 mg PO .Bedtime 10/10/22 09/02/24 prednisone 10 mg tablet 10 mg PO QDAY 10/10/22 09/02/24 quetiapine 300 mg tablet 300 mg PO QDAY 10/10/22 09/02/24 quetiapine 50 mg tablet 50 mg PO .Bedtime 10/10/22 09/02/24 triamcinolone acetonide 0.1 % g topical 10/10/22 09/02/24 topical ointment Previous Rx's ?Medication ?Instructions ?Recorded dextroamphetamine-amphetamine ER 25 mg PO BID #180 caps 10/10/22 25 mg 24hr capsule,extend release peg 3350-electrolytes 236 240 ml PO Q10M #4,000 mL 09/08/23 gram-22.74 gram-6.74 gram-5.86 gram solution (Golytely) nebulizer and compressor #1 ea 10/17/23 atorvastatin 40 mg tablet 40 mg PO .Bedtime #90 tabs 09/02/24 lisinopril 20 mg tablet 20 mg PO QDAY #90 tabs 09/02/24 omeprazole 40 mg capsule,delayed 40 mg PO QDAY #90 caps 11/07/24 release Allergies Allergy/AdvReac Type Severity Reaction Status Date / Time morphine AdvReac Intermediate drops Verified 12/28/24 11:03 blood pressure Review of Systems Status of ROS: Reports: 10 or more systems reviewed and unremarkable except as noted in History and below Narrative: Constitutional: No fevers, no weight gain or loss. Eyes: No discharge. No vision changes. HENT: No congestion, no sore throat, no ear pain. Nose bleed as described above. Cardiovascular: No chest pain, no palpitations. Respiratory: No shortness of breath, no wheezes, no cough. Gastrointestinal: No abdominal pain, no vomiting, no diarrhea. Genitourinary: No dysuria, no hematuria. Musculoskeletal: Normal range of motion. Skin: No rashes, no pruritis. Neurological: No dizziness, weakness, sensory change, speech change. Endo/Heme/Allergies: No bruising or bleeding. No polydipsia. Pysch: no suicidality, no anxiety, no insomnia. All other systems reviewed and are negative. [facility] Medical History (Updated 12/28/24 @ 11:29 by Zaire Aguirre MD) History of compression fracture of spine ?Z87.81 - Personal history of (healed) traumatic fracture (ICD-10) Mass of left kidney ?N28.89 - Other specified disorders of kidney and ureter (ICD-10) History of deep venous thrombosis (03/01/12) ?Z86.718 - Personal history of other venous thrombosis and embolism (ICD-10) History of atrial fibrillation (12/29/11) ?Z86.79 - Personal history of other diseases of the circulatory system (ICD-10) Surgical History (Updated 10/10/22 @ 12:50 by Daly Silveira MD) Status post total shoulder replacement (2014) ?Z96.619 - Presence of unspecified artificial shoulder joint (ICD-10) Squamous cell carcinoma (12/29/11) Rupture of right quadriceps tendon (2013) ?S76.111A - Strain of right quadriceps muscle, fascia and tendon, initial encounter (ICD-10) History of total shoulder replacement (01/15/19) ?Z96.619 - Presence of unspecified artificial shoulder joint (ICD-10) History of hernia repair (09/02/10) ?Z98.890 - Other specified postprocedural states (ICD-10) ?Z87.19 - Personal history of other diseases of the digestive system (ICD-10) History of arthroscopic knee surgery (12/29/11) ?Z98.890 - Other specified postprocedural states (ICD-10) Family History (Updated 10/04/22 @ 17:58 by Mariam Arce) Family/Other Colon cancer Mother Colon cancer Social History (Updated 09/02/24 @ 11:12 by Ninfa Drummond ~ [facility] [place]) What is your current living situation?: I presently have a place to live Problems where you live: no known problems In the past 12 months, utilities in danger of being shut off: no In past 12 months, lack of transportation kept you from medical appts, meetings, work, or getting things needed for daily living: no In the past 12 mos, have been you worried that your food would run out before you had money to buy more?: never true In the past 12 mos, the food you bought just didn't last and you didn't have money to buy more?: never true Smoking Status: Never smoker How often does anyone, including family, friends and others, physically hurt you: never How often does anyone, including family, friends and others, insult or talk down to you: never How often does anyone, including family, friends and others, threaten you with harm: never How often does anyone, including family, friends and others, scream or curse at you: never Exam Narrative: Exam Narrative: Constitutional: Well-developed, well-nourished, no acute distress. HEENT: Normocephalic, atraumatic. Bleeding from the nostril. Neck: Normal range of motion. Nontender. Supple. Heart: Regular. No murmurs. Normal rate. Intact distal pulses. Lungs: Clear to auscultation. No chest discomfort. No wheezes, rhonchi, or rales. Abdomen: Normal bowel sounds. Nontender. No rebound tenderness. Genitalia: Deferred. Back: No midline tenderness. Normal range of motion. Extremities: Normal range of motion. No injury. Skin: Intact. No rash. Warm. No erythema or pallor. Neurologic: No altered sensation. No weakness. Alert and oriented. Psychiatric: No suicidality. No anxiety or depression. No insomnia. Nursing notes and vitals signs are reviewed. Const: Vital Signs, click to edit/add: Vital Signs - 24 hr 12/28/24 11:03 Temperature 97.5 F L Pulse Rate [Pulse Oximeter] 62 Respiratory Rate 16 Blood Pressure [Ri ght Upper Arm] 108/77 Pulse Oximetry 95 Oxygen Delivery Me thod Room Air Course Vital Signs Vital signs: Initial Vital Signs Temperature 97.5 F L 12/28/24 11:03 Temperature Source Temporal Artery Scan 12/28/24 11:03 Pulse Rate 62 12/28/24 11:03 Respiratory Rate 16 12/28/24 11:03 Blood Pressure 108/77 12/28/24 11:03 Blood Pressure Mean 87 12/28/24 11:03 Blood Pressure Position Sitting 12/28/24 11:03 Pulse Oximetry 95 12/28/24 11:03 Oxygen Delivery Method Room Air 12/28/24 11:03 Vital Signs Temperature 97.5 F L 12/28/24 11:03 Pulse Rate 62 12/28/24 11:03 Respiratory Rate 16 12/28/24 11:03 Blood Pressure 108/77 12/28/24 11:03 Pulse Oximetry 95 12/28/24 11:03 Oxygen Delivery Method Room Air 12/28/24 11:03 Temperature 97.5 F L 12/28/24 11:03 Pulse Rate 62 12/28/24 11:03 Respiratory Rate 16 12/28/24 11:03 Blood Pressure 108/77 12/28/24 11:03 Pulse Oximetry 95 12/28/24 11:03 Oxygen Delivery Method Room Air 12/28/24 11:03 MDM - Epistaxis MDM Narrative Medical decision making narrative: This patient comes in holding a towel in front of his nose but not providing any sort of direct pressure. Additionally he was sometimes vigorous with his wiping of his nose to clear the blood. I applied a nasal clamp for about 15 minutes and then examined his nose further. He also received Afrin bilaterally in the nostrils. His bleed appears to be an anterior bleed that can be attended to with direct pressure. There is no ongoing bleeding and no evidence of drainage down his oropharynx. Instructions were given regarding ongoing management if rebleeding were to occur. Discharge Plan Discharge Clinical Impression: Epistaxis Patient Disposition: Home, Self-Care Condition: Improved Additional Instructions: If rebleeding occurs use nasal clamp and Afrin as directed and needed. Return if worsening. Prescriptions: No Action quetiapine 50 mg tablet 50 mg PO .Bedtime cholecalciferol (vitamin D3) 25 mcg (1,000 unit) capsule 2,000 unit PO DAILY loratadine 10 mg tablet 10 mg PO DAILY aripiprazole 5 mg tablet 5 mg PO DAILY fluticasone furoate-vilanterol 200-25 mcg/dose blister with device 1 inhalation DAILY mirtazapine 45 mg tablet 45 mg PO .Bedtime clonazepam 1 mg tablet 1 mg PO QDAY PRN quetiapine 300 mg tablet 300 mg PO QDAY prednisone 10 mg tablet 10 mg PO QDAY aspirin 325 mg tablet 325 mg PO QDAY ipratropium-albuterol 0.5 mg-3 mg(2.5 mg base)/3 mL solution for nebulization inhalation alprazolam 0.5 mg tablet 0.5 mg PO QDAY PRN budesonide 0.5 mg/2 mL suspension for nebulization 0.5 mg inhalation QDAY PRN metoprolol succinate 50 mg tablet extended release 24 hr PO triamcinolone acetonide 0.1 % ointment topical benzonatate 100 mg capsule PO albuterol sulfate 90 mcg/actuation HFA aerosol inhaler inhalation dextroamphetamine-amphetamine 25 mg capsule,extended release 24hr 25 mg PO BID Qty: 180 0RF lisinopril 20 mg tablet 20 mg PO QDAY Qty: 90 3RF atorvastatin 40 mg tablet 40 mg PO .Bedtime Qty: 90 3RF peg 3350-electrolytes [Golytely] 236-22.74-6.74 -5.86 gram recon soln 240 ml PO Q10M Qty: 4000 0RF Rx Instructions: until fecal effluent is clear (DME) nebulizer and compressor Device See Rx Instructions .Route Qty: 1 0RF Rx Instructions: As directed omeprazole 40 mg capsule,delayed release(DR/EC) 40 mg PO QDAY Qty: 90 3RF Follow Up/Referrals: Daly Silveira MD [Primary Care Provider] - Stand Alone Forms: MyHealth Info Instructions
--- OUTSIDE RECORDS SUMMARY | 2024-12-28 11:39 | XMS_ITS | Clinical Summary ---
Author Organization [facility] Address [address] [place] [address] Care Team Providers Care Hospital Receptionist Name Role Phone Daly Silveira MD Primary Care Provider [phone]- [phone] Allergies Active Allergy Reactions Criticality Noted Date Comments Morphine Hypotension 07/10/2020 Medications omeprazole (PRILOSEC) 40 mg Delayed-Release capsule Take [...] by mouth once daily. 0 11/14/2017 Active dextroamphetamin e-amphetamine (ADDERALL XR) 20 mg Extended-Release capsule Take 1 capsule by mouth every morning 0 11/14/2017 Active ALPRAZolam (XANAX) 1 mg tablet Take 1 tablet by mouth at bedtime if needed. 0 11/14/2017 Active QUEtiapine (SEROQUEL XR) 300 mg Extended-Release tablet Take 1 tablet by mouth at bedtime. 0 11/14/2017 Active fluticasone furoate-vilanter oL (Breo Ellipta) 200mcg/25mcg inhaler Inhale 1 Puff by mouth once daily. 60 Each 09/13/2022 Active metoprolol succinate (TOPROL XL) 50 mg sustained-releas e tabletIndication s:Atrial fibrillation, unspecified type (HC),Ventricular tachycardia (HC) Take 1 Tablet (50 mg) by mouth two times daily. NEEDS OFFICE VISIT FOR FURTHER REFILLS. CALL [phone] TO SCHEDULE. 180 Tablet 1 02/19/2024 Active Active Problems Problem Noted Date Diagnosed Date A-fib 07/20/2020 Overview (07/20/2020): - remote hx in 2004 - s/p ablation ASHD (arteriosclerotic heart disease) 07/20/2020 Overview (07/20/2020): - angiogram 2006: mild ASHD - [facility] Nuclear Stress test: fixed inferior defect [...] Recorded Sex Assigned at Not on file Legal Sex Male 6:05 AM CHIN STRAP CUTTER Gender Identity Not on file Sexual Orientation Not on file Obstetrics History Last Filed Vital Signs Vital Sign Reading Time Taken Comments Blood Pressure 118/84 09/13/2022 10:34 AM CHIN STRAP CUTTER Pulse 58 09/13/2022 10:34 AM CHIN STRAP CUTTER Temperature 35.6 C (96 F) 07/20/2020 4:00 PM CDT Respiratory Rate 16 09/13/2022 10:3 4 AM CHIN STRAP CUTTER Oxygen Saturation 99% 09/13/2022 10: 34 AM CHIN STRAP CUTTER on room air Inhaled Oxygen Concentration - - Weight 95.9 kg (211 lb 6.4 oz) 09/13/20 10:34 AM CHIN STRAP CUTTER with boots Height 185.4 cm (6' 1) 09/13/2022 10:3 4 AM CHIN STRAP CUTTER Body Mass Index 27.89 09/13/2022 10:34 AM CHIN STRAP CUTTER Plan of Treatment Health Maintenance Due Date Last Done Comments Tdap 1959 Depression screening for age 12+ 1960 Hepatitis C screening for ag e 18-79 1966 Pneumococcal series for age 50+ (1 of 2 - PCV) 1967 Tetanus booster 1968 Zoster (shingles) series for age 50+ (1 of 2) 1998 Medicare Wellness for age 65+ 2013 RSV vaccine for adults or (1 - 1-dose 75+ series) 2023 BMI (ht and wt on same day) for age 18+ 09/13/2023 09/13/2022, 08/31/2021, 10/13/2020 COVID-19 vaccine series (2023- season) 2024 09/20/2022, 04/19/2022, 11/23/2021, Additional history exists Influenza for age 65+ 06/30/2024 Insurance MEDICARE ADVANTAGE MR LASHAUN ESCOBAR [id number] Advance Directives * Full Code (Latest Code Status on File) Date Activated Date Inactivated Comments 07/20/2020 10:07 AM 07/20/2020 6:32 PM Question Answer Comments Code Status Discussion: Discussed Care Teams Hospital Receptionist Relationship Specialty Start Date End Date Daly Silveira MD [address] [place] [address] PCP - General Internal Medicine 07/02/20
--- OUTSIDE RECORDS SUMMARY | 2024-12-28 11:39 | XMS_ITS | Encounter Summary ---
Author [facility] Address [address], [place] [address] Care Team Providers Care Food Cashier Name Role Phone Daly Silveira MD Primary Care Provider [phone]- [phone] Reason for Visit * Reason Comments Appointment Encounter Details Date Type Department Care Team (Late st Contact Info) Description 11/25/2024 Telephone [facility] Pulmonary Medicine [address] [place], [place] [id number] Sujatha Parra MD [address] [address] [place], [place] [id number] Appointment Social History Tobacco Use Types Packs/Day Years Used Date Smoking Tobacco: Never Smokeless Tobacco: Former Chew Quit: 2019 Alcohol Use Standard Drinks/Week Comments Not Currently 0 (1 standard drink = 0.6 oz pur e alcohol) Sex and Gender Information Value Date Recorded Sex Assigned at Not on file Legal Sex Male 4:44 AM CDT Gender Identity Not on file Sexual Orientation Not on file documented as of this encounter Nursing Notes * Mary Biggs - 11/25/2024 3:28 PM CST Pt has been rescheduled for a pulm follow up with Dr. Parra, with denia & aga prior on 12/24. ER PRESS OPERATOR * Mariam Jimenez RN - 11/25/2024 2:55 PM CST Pt called nurse triage line and left a vm asking to cancel f/u scheduled for today and reschedule to different date. Frontline, please reach out to pt to reschedule appt that was scheduled for today (11/25/24). Thank you! ER PRESS OPERATOR documented in this encounter Plan of Treatment Upcoming Encounters Date Type Department Care Team (Late st Contact Info) Description 01/16/2025 12:30 PM CDT Appointment [facility] [address] [place] [address] Razia Ochoa, PA-C [address] [place] [address] 02/11/2025 1:30 PM CDT Appointment [facility] [address] [address] [place] [phone] Guru Jamison MD [address] [place] [address] 05/13/2025 10:15 AM CDT Appointment [facility] [address] [place] [address] Vania Cohen MD [address] [place] [address] documented as of this encounter Visit Diagnoses Not on filedocumented in this encounter Care Teams Food Cashier Relationship Specialty Start Date End Date Daly Silveira MD [address] [place] [address] PCP - General Internal Medicine 04/08/22 documented as of this encounter
--- OUTSIDE RECORDS SUMMARY | 2024-12-28 11:39 | XMS_ITS | Encounter Summary ---
Author Organization [facility] Address [address] [place] [address] Care Team Providers Care Health Outcomes Liaison Name Role Phone Daly Silveira MD Primary Care Provider [phone]- [phone] Reason for Visit * Auth/Cert (Routine) Specialty Diagnoses / Procedures Referred By Contac t Referred To Contact Diagnoses Incomplete bladder emptying Procedures TRANSURETHRAL RESECTION OF THE PROSTATE Referral ID Status Reason Start Date Expiration Date Visits Re quested Visits Authorized [id number] 1 1 Encounter Details Date Type Department Care Team (Late st Contact Info) Description 08/09/2024 Hospital Encounter [facility] [address] [facility] [place] [address] Guru Jamison MD [address] [place], [place] [id number] Social History Tobacco Use Types Packs/Day Years [...] Department Care Team (Late Contact Info) Description 01/16/2025 12:30 PM CDT Appointment [facility] [place] [address] [place] [address] Razia Ochoa, PAMaryC [address] [place] [address] 02/11/2025 1:30 PM CDT Appointment [facility] [address] [address] [place] [address] Guru Jamison MD [address] [place] [address] 05/13/2025 10:15 AM CDT Appointment [facility] [address] [place] [address] Vania Cohen MD [address] [place] [address] documented as of this encounter Visit Diagnoses Diagnosis Incomplete bladder emptying- Primary documented in this encounter Admitting Diagnoses Diagnosis Incomplete bladder emptying documented in this encounter Care Teams Health Outcomes Liaison Relationship Specialty Start Date End Date Daly Silveira MD [address] [place] [address] PCP - General Internal Medicine 04/08/22 documented as of this encounter
[2024-12-28] MEDS: OXYMETAZOLINE 0.05% NASAL SPRAY 1 SPRAY NOSTRIL-B (12:00)
== END 2024-12-28 12:21 | disposition home or self-care (01) ==
PROVIDERS: Emergency Provider Emergency Medicine Emergency Medical Services; PCP Internal Medicine
DX: R04.0 Epistaxis (principal)
CPT/HCPCS: 30901; 99283; 99284

== ENCOUNTER 2025-02-19 09:06 | Inpatient (IN) | payer OTHER, SELFPAY ==
[2025-02-19] VITALS (38 sets, daily range): BP systolic 45–160; BP diastolic 34–147; PULSE 49–96; RESP 23–42; TEMP 37.2–37.4; O2SAT 85–97; BMI 29.0; BMI 28.4
--- OUTSIDE RECORDS SUMMARY | 2025-02-19 09:10 | XMS_ITS | Encounter Summary ---
Author Organization [facility] Address [address], [place] [address] Care Team Providers Care Baseball Scout Name Role Phone Daly Silveira MD Primary Care Provider [phone]- [phone] Encounter Details Date Type Department Care Team (Late st Contact Info) Description 01/22/2025 1:50 PM CDT Lab Visit [facility] [address] [place] [address] Medication monitoring encounter; Other mcfp (current) drug therapy Social History Tobacco Use Types Packs/Day Years [...] Care Team (Late st Contact Info) Description 05/13/2025 10:15 AM CDT Appointment [place] [address] [address] [facility] [place] [address] Vania Cohen MD [address] [place] [address] documented as of this encounter Procedures Procedure Name Priority Date/Time Associated Diagnosis Comments LIPID PANEL & DIRECT LDL (IF NEEDED) Routine 01/22/2025 2:00 PM CDT Medication monitoring encounter HGB A1C Routine 01/22/2025 2:00 PM CDT Medication monitoring encounter Other mcfp (current) drug therapy documented in this encounter Results * Lipid Panel & Direct LDL (if Needed) (01/22/2025 2:00 PM CDT) [facility] Cholesterol 167 0 - 199 mg/dL 01/22/2025 7:26 PM CDT [facility] Triglyceride 81 <=149 mg/dL 01/22/2025 7:26 PM T [facility] HDL Cholesterol 56 >=40 mg/dL 7:26 PM T [facility] LDL, Calculated 95 <130 mg/dL 7:26 PM T [facility] Non HDL Chol, Calculated 111 <=159 mg/dL 01/22/2025 7:26 PM [facility] Cholesterol/HDL Ratio 3.0 <=5.0 01/22/2025 7:26 PM [facility] Hours Fasting 7.0 8 - 12 Hours 01/22/2025 7:26 PM [facility] Blood Venipuncture / Unknown 01/22/2025 2:00 PM CDT 01/22/2025 2:00 PM CDT Nieves Fleming MD LAB_1 Final Result [facility] [address] [place] [address], [facility] * (ABNORMAL) Hgb A1C (01/22/2025 2:00 PM CDT) Pathologist [facility] Hemoglobin A1C (Rapid) 6.2(H) <=5.6 % 01/22/2025 2:43 PM CDT [facility] Estimated Average Glucose (Calc) 131 < 117 mg/dL 01/22/2025 2:43 PM T [facility] Comment:Estimated average gl ucose (eAG) converts A1c into glucose units (mg/dL) and estimates average glucose over the past approximately 3 months. The eAG reference interval (<117 mg/dL) corresponds to an A1c of <5.7%. Blood Venipuncture / Unknown 01/22/2025 2:00 PM CDT 01/22/2025 2:00 PM CDT Narrative [facility] - 01/22/2025 2:43 PM CDT For patients not previously diagnosed with diabetes: 5.7-6.4%: Increased risk for diabetes 6.5% and greater: Diagnostic for diabetes For patients diagnosed with diabetes: <8.0%: Goal of therapy for ages 18-75 Clinicians may recommend a higher or lower goal for specific individuals. The test method used for this Hemoglobin A1c result can experience interference from elevated hemoglobin and other hemoglobin variants. In patients with results that do not correlate clinically, contact the lab for further direction. us Nieves Fleming MD LAB_1 Final Result [facility] [address] [place] [address] documented in this encounter Visit Diagnoses Diagnosis Medication monitoring encounter Encounter for therapeutic drug monitoring Other mcfp (current) drug therapy documented in this encounter Care Teams Baseball Scout Relationship Specialty Start Date End Date Daly Silveira MD [address] [place] [address] PCP - General Internal Medicine 04/08/22 documented as of this encounter
--- OUTSIDE RECORDS SUMMARY | 2025-02-19 09:10 | XMS_ITS | Clinical Summary ---
Author Organization [employer] [facility] Address [address] [place] [address] Care Team Providers Care Mfg Assoc Name Role Phone Daly Silveira MD Primary Care Provider [phone]- [phone] Allergies Active Allergy Reactions Criticality Noted Date [...] NEEDS OFFICE VISIT FOR FURTHER REFILLS. CALL [phone] TO SCHEDULE. 180 Tablet 1 02/19/2024 Active Active Problems Problem Noted Date Diagnosed Date A-fib 07/20/2020 Overview (07/20/2020): - remote hx in 2004 - s/p ablation ASHD (arteriosclerotic heart disease) 07/20/2020 Overview (07/20/2020): - angiogram 2006: mild ASHD - [facility] Nuclear Stress test: fixed inferior defect with [...] on file Legal Sex Male 6:05 AM SECOND HELPER Gender Identity Not on file Sexual Orientation Not on file Obstetrics History Last Filed Vital Signs Vital Sign Reading Time Taken Comments Blood Pressure 118/84 09/13/2022 10:34 AM SECOND HELPER Pulse 58 09/13/2022 10:34 AM SECOND HELPER Temperature 35.6 C (96 F) 07/20/2020 4:00 PM CDT Respiratory Rate 16 09/13/2022 10:3 4 AM SECOND HELPER Oxygen Saturation 99% 09/13/2022 10: 34 AM SECOND HELPER on room air Inhaled Oxygen Concentration - - Weight 95.9 kg (211 lb 6.4 oz) 09/13/20 10:34 AM SECOND HELPER with boots Height 185.4 cm (6' 1) 09/13/2022 10:3 4 AM SECOND HELPER Body Mass Index 27.89 09/13/2022 10:34 AM SECOND HELPER Plan of Treatment Health Maintenance Due Date [...] 09/20/2022, 04/19/2022, 11/23/2021, Additional history exists Influenza Vaccine (Season Ended) 2025 Insurance MEDICARE ADVANTAGE MR LASHAUN ESCOBAR [id number] Advance Directives * Full Code (Latest Code Status on File) Date Activated Date Inactivated Comments 07/20/2020 10:07 AM 07/20/2020 6:32 PM Question Answer Comments Code Status Discussion: Discussed Care Teams Mfg Assoc Relationship Specialty Start Date End Date Daly Silveira MD [address] [place] [address] PCP - General Internal Medicine 07/02/20
--- OUTSIDE RECORDS SUMMARY | 2025-02-19 09:10 | XMS_ITS | Encounter Summary ---
[facility] Address [address], [place] [address] Care Team Providers Care Sales Merchandising Specialist Name Role Phone Daly Silveira MD Primary Care Provider [phone]- [phone] Reason for Visit * Auth/Cert (Routine) Specialty Diagnoses / Procedures Referred By Contac t Referred To Contact Diagnoses Incomplete bladder emptying Procedures TRANSURETHRAL RESECTION OF THE PROSTATE Referral ID Status Reason Start Date Expiration Date Visits Re quested Visits Authorized [id number] 1 1 Encounter Details Date Type Department Care Team (Late Contact Info) Description 08/09/2024 Hospital Encounter [facility] [address] [facility] [place], [place] [id number] Guru Jamison MD [address] [place], [place] [address] Social History Tobacco Use Types Packs/Day Years [...] Department Care Team (Late Contact Info) Description 05/13/2025 10:15 AM CDT Appointment [facility] [address] [place], [place] [address] Vania Cohen MD [address] [place] [address] documented as of this encounter Visit Diagnoses Diagnosis Incomplete bladder emptying- Primary documented in this encounter Admitting Diagnoses Diagnosis Incomplete bladder emptying documented in this encounter Care Teams Sales Merchandising Specialist Relationship Specialty Start Date End Date Daly Silveira MD [address] [place] [address] PCP - General Internal Medicine 04/08/22 documented as of this encounter
--- OUTSIDE RECORDS SUMMARY | 2025-02-19 09:10 | XMS_ITS | Encounter Summary ---
Author Organization [facility] Address [address], [place] [address] Care Team Providers Care Oil Spot Washer Name Role Phone Daly Silveira MD Primary Care Provider +1- [phone] Reason for Visit * Procedure/Equipment (Routine) - Incomplete Specialty Diagnoses / Procedures Referred By Contac t Referred To Contact Diagnoses Renal mass Procedures MR Abd W/WO IV Cont Razia Ochoa PA-C [address] [place] [address] Phone: tel: fax: Referral ID Status Reason Start Date Expiration Date V isits Requested Visits Authorized [id number] Incomplete 01/16/2025 04/17/2026 1 1 Encounter Details Date Type Department Care Team (Late st Contact Info) Description 01/16/2025 12:30 PM CDT Ancillary Procedure [facility] [place] [address] [place] [address] Razia Ochoa PA-C [address] [place], [place] [id number] Renal mass Social History Tobacco Use Types Packs/Day Years [...] Info) Description 05/13/2025 10:[address] [facility] [address] [place] [facility] [address] Vania Cohen MD [address] [place] [address] documented as of this encounter Procedures Procedure Name Priority Date/Time Associated Diagnosis Comments MR ABD W/WO IV CONT Routine 01/16/2025 1 :06 PM CDT Renal mass documented in this encounter Results * MR Abd W/WO IV Cont (01/16/2025 1:06 PM CDT) Anatomical Region Laterality Modality Abdomen, Pelvis Magnetic Resonan ce 01/16/2025 12:2 5 PM CDT Impressions 01/16/2025 1:35 PM CDT 1. Questionably enhancing complex lesion in the interpolar region of the right kidney is similar in size and signal characteristics compared to 07/16/2024. Recommend continued follow-up/management at the discretion of the urology service. 2. Simple and mildly complex cysts elsewhere in both kidneys, also similar. 3. Stable incidental findings as above. Narrative 01/16/2025 1:35 PM CDT COMPARISON: 07/16/2024. TECHNIQUE: Multiplanar, multisequence MR images of the abdomen were obtained before and following the administration of 11 mL GADOBUTROL 1 MMOL/ML IV SOLN with dynamic acquisition. Findings: Kidneys: In the posterior aspect of the interpolar region of the right kidney, there is a 2.2 x 2.1 cm mildly T1 heterogeneous, partially exophytic structure (series 3 image 54). This shows similar T1 and T2 characteristics since the prior exam. Mild motion artifact degrades the images. Questionable hypoenhancement along the superior portion of the epiphysis similar compared to the prior exam. Elsewhere in both kidneys, there are multiple simple and hemorrhagic/proteinaceous cysts throughout. These appear similar compared to the prior exam. Remainder of abdomen: No suspicious liver lesion. The bladder and biliary tree are within normal limits. The pancreas, spleen, adrenal glands are unremarkable. Mild colonic diverticulosis without evidence for diverticulitis. Bowel is unremarkable otherwise. Partially visualized trabeculated bladder with multiple small diverticula. Small sliding-type hiatal hernia. Bones: Expansile area along the right side of the sacrum is minimally visualized on this exam. Bony structures are otherwise unremarkable. Lung bases: Mild bibasilar atelectasis. Procedure Note Tylor Torrez MD - 01/16/2025 COMPARISON: 07/16/2024. TECHNIQUE: Multiplanar, multisequence MR images of the abdomen wereobtained before and following the administration of 11 mL GADOBUTROL 1MMOL/ML IV SOLN with dynamic acquisition. Findings: Kidneys: In the posterior aspect of the interpolar region of the rightkidney, there is a 2.2 x 2.1 cm mildly T1 heterogeneous, partiallyexophytic structure (series 3 image 54). This shows similar T1 and M1prcuxkvnjrjopxs since the prior exam. Mild motion artifact degrades theimages. Questionable hypoenhancement along the superior portion of theepiphysis similar compared to the prior exam. Elsewhere in both kidneys,there are multiple simple and hemorrhagic/proteinaceous cysts throughout.These appear similar compared to the prior exam. Remainder of abdomen: No suspicious liver lesion. The bladder and biliarytree are within normal limits. The pancreas, spleen, adrenal glands areunremarkable. Mild colonic diverticulosis without evidence fordiverticulitis. Bowel is unremarkable otherwise. Partially visualizedtrabeculated bladder with multiple small diverticula. Small sliding-typehiatal hernia. Bones: Expansile area along the right side of the sacrum is minimallyvisualized on this exam. Bony structures are otherwise unremarkable. Lung bases: Mild bibasilar atelectasis. IMPRESSION 1. Questionably enhancing complex lesion in the interpolar region of theright kidney is similar in size and signal characteristics compared to07/16/2024. Recommend continued follow-up/management at the discretion ofthe urology service. 2. Simple and mildly complex cysts elsewhere in both kidneys, alsosimilar. 3. Stable incidental findings as above. us Razia Ochoa PA-C RAD MRI Final Re sult documented in this encounter Visit Diagnoses Diagnosis Renal mass Unspecified disorder of kidney and ureter documented in this encounter Administered Medications Inactive Administered Medications - up to 3 most recent administrations Medication Order MAR Action Action Date Dose Rate Site gadobutrol (GADAVIST) 1 MMOL/ML injection 11 mL 11 mL, Intravenous, ONCE (NON-SCHEDULED), Starting on Daisy 01/16/25 at 1216, Until Daisy 01/16/25 at 1258, For 1 doseIndications:Renal mass Given 01/16/2025 12:58 PM CDT 11 mL sodium chloride 0.9% bolus 100 mL 100 mL, Intravenous, Administer over 1 Hours, ONCE, On Daisy 01/16/25 at 1245, For 1 doseIndications:Renal mass Started 01/16/2025 12:57 PM CDT 100 mL sodium chloride 0.9% injection 10 mL 10 mL, Intravenous, ONCE, On Daisy 01/16/25 at 1245, For 1 doseIndications:Renal mass Given 01/16/2025 12:57 PM CDT 10 mL documented in this encounter Care Teams Oil Spot Washer Relationship Specialty Start Date End Date Daly Silveira MD [address] [place] [address] PCP - General Internal Medicine 04/08/22 documented as of this encounter
--- OUTSIDE RECORDS SUMMARY | 2025-02-19 09:10 | XMS_ITS | Clinical Summary ---
Author Organization [facility] Address [address] [place] [address] Care Team Providers Care Executive Assistant To President Name Role Phone Daly Silveira MD Primary Care Provider +1- [phone] Source Comments You are receiving this document as you are listed as the primary care provider,follow-up provider, or the patient has been referred to you for consultation.This is in compliance with the Medicare and[facility] EHR Incentive Program,which states Providers who transition their patient to another setting of careor provider of care or refers their patient to another provider of care shouldprovide summary care record for each transition of care or referral. [employer] Allergies Active Allergy Reactions Criticality Noted Date Comments Morphine Hypotension 07/10/2020 Medications * This document contains information received from the source organization and may not represent a complete record from that organization. aspirin EC (ECOTRIN) 325 MG enteric coated [...] 3 Active triamcinolone acetonide (KENALOG) 0.1 % ointmentIndicati ons:Dermatitis Apply topically two times a day. Apply to the body twice a day as needed. Avoid face, under arms and groin. 453.6 g 1 4 Active desonide (DESOWEN) 0.05 % creamIndications :Dermatitis Apply to skin behind both ears twice a day as needed. 30 g 2 4 Active fluocinonide (LIDEX) 0.05 % external solutionIndicati ons:Dermatitis Apply topically two times a day. Apply to scalp twice a day as needed. 60 mL 3 4 Active fluocinonide (LIDEX) 0.05 % ointmentIndicati ons:Rash Apply topically two times a day. Apply twice daily to areas of rash on both arms and back of neck, avoid face, armpits and groin. 60 g 3 4 Active betamethasone dipropionate 0.05 % AUGMENTED ointment Apply topically two times a day. 60 g 2 4 Active tacrolimus (PROTOPIC) 0.1 % ointmentIndicati ons:Rash Apply to arms and back of neck twice a day as needed for itching. 60 g 2 4 Active tamsulosin (FLOMAX) 0.4 MG CAPS capsuleIndicatio ns:Enlarged prostate,Urinary retention Take 1 Capsule (0.4 mg) by mouth daily. 90 Capsule 3 4 07/12/20 25 Active lisinopril (ZESTRIL) 20 MG tablet Take 1 Tablet (20 mg) by mouth daily. 90 Tablet 1 4 Active ALPRAZolam (XANAX) 0.5 MG tabletIndication s:HAI (generalized anxiety disorder) (HRC) Take 1 tab once daily as needed. New dose 30 Tablet 3 5 Active ARIPiprazole (ABILIFY) 5 MG tablet Take 1 Tablet (5 mg) by mouth daily. 30 Tablet 5 5 Active escitalopram oxalate (LEXAPRO) 20 MG tablet Take 2 Tablets (40 mg) by mouth daily. 60 Tablet 5 5 Active QUEtiapine (SEROQUEL) 300 MG tabletIndication s:MDD (major depressive disorder), recurrent, in partial remission (HRC) Take 2 Tablets (600 mg) by mouth daily at bedtime. 60 Tablet 5 5 Active ALBUterol sulfate HFA 108 (90 Base) MCG/ACT inhalerIndicatio ns:Severe persistent asthma without complication (HRC) Inhale 1-2 Puffs every 4 hours as needed for Wheezing or Shortness of Breath. 6.7 g 5 Active budesonide (PULMICORT) 0.5 MG/2ML inhalation suspensionIndica tions:Severe persistent asthma, unspecified whether complicated (HRC) Inhale 2 mL (0.5 mg) two times a day. 360 mL 5 Active fluticasone-abbey nterol (BREO ELLIPTA) 200-25 MCG/ACT inhaler Inhale 1 Dose daily. Rinse mouth/gargle after use 180 Each 5 Active ipratropium-albu terol (DUONEB) 0.5-2.5 (3) mg/3ml nebulizer solutionIndicati ons:Severe persistent asthma, unspecified whether complicated (HRC) Inhale 3 mL every 6 hours as needed for Wheezing or Shortness of Breath. 90 mL 5 Active predniSONE (DELTASONE) 10 MG tabletIndication s:Severe persistent asthma, unspecified whether complicated (HRC) 4 tabs daily x3 days, 3 tabs daily x3 days, 2 tabs daily x3 days, 1 tab daily x3 days, then stop 30 Tablet 3 5 Active amphetamine-dext roamphetamine XR (ADDERALL XR) 10 MG 24 hour release capsule Take 1-2 Capsules (10-20 mg) by mouth daily. 60 Capsule 5 Active mirtazapine (REMERON) 15 MG tablet Take 1 tab nightly. Updated dose 30 Tablet 5 5 Active amphetamine-dext roamphetamine XR (ADDERALL XR) 10 MG 24 hour release capsule Take 1-2 Capsules (10-20 mg) by mouth daily. 60 Capsule 5 01/23/20 25 Discontin ued(*Med change OR same med OR reorder, new dose/dire ctions) mirtazapine (REMERON) 15 MG tablet Take 1 tab nightly for 14 days then increase to 2 tabs nightly. New dosing 60 Tablet 1 5 01/23/20 25 Discontin ued(*Med change OR same med OR reorder, new dose/dire ctions) Active Problems Patient Care Coordination No te Formatting of this note migh t be different from the original. HP DCM Care Management Sonny Van was offered Case Management support. He agrees to work with [facility] to assist with connection to mental health resources and understanding his cardiovascular plan of care. Janette Lujan RN 09/03/2020, 5:06 PM Update 08/26- Closing case, goals have been met. Problem Noted Date Diagnosed Date S/P ablation of atrial fibrillation 01/20/2025 correction (current) use of aspirin 01/20/2025 Non-ischemic cardiomyopathy 12/20/2024 Bladder outlet obstruction 07/12/2024 Incomplete bladder emptying [...] 153 bpm; frequent couplets, bigeminy and trigeminy Elevated IgE level 02/05/2019 History of basal [...] this according to patient. ; Rheumatoid arthritis(714.0) ([facility]) Vitamin D deficiency 10/09/2013 Generalized anxiety [...] post-auricular scalp, s/p mohs 11/12/2015 SCCis, left methodist, s/p efudex 10/2015 SCCis, right lateral orbital rim, s/p Mohs 08/28/2015 SCC, right cheek, s/p MMS 05/2015 SCC, left jaw line, s/p MMS 05/2015 SCC, right postauricular neck, s/p MMS 04/2015 SCC, left postauricular neck, s/p MMS 04/2015 SCC, left cheek, s/p MMS 03/2015 SCC, left methodist, s/p MMS 03/2015 Multiple other NMSC's in past treated at [facility] Severe episode of recurrent major depressive dis order 11/28/2007 Coronary artery disease invo lving shosh[place] coronary artery of shoshone[place]ann[place] heart without angina pectoris 08/02/2005 Overview (12/08/2023): - angiogram 2006: mild [facility] Nuclear Stress test: fixed inferior defect with no evidence of ischemia; EF 42% - Echo 05/15/2020: EF 50-55%; mid posterior and inferior wall hypokinesis Resolved Problems Problem Noted Date Diagnosed Date Resolved Date 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 Sepsis 09/28/2012 09/20/2022 Overview (06/21/2017): Sepsis(995.91) ([facility]) Major depressive disorder, r ecurrent episode, moderate 06/01/2011 12/20/2024 Dysthymia 06/01/2011 11/04/2014 Encounters * This document contains information received from the source organization and may not represent a complete record from that organization. Date Type Department Care Team Description 02/07/2025 Refill [facility] [address] [place] [address] Jarad Malloy MD Refill (lisinopril (ZESTRIL) 20 MG tablet [Pharmacy Med Name: LISINOPRIL 20MG TABLETS]) 01/30/2025 Telephone [facility] [address] Internal Medicine [address] [facility] [place] [address] Daly Silveira MD Appt. Needed 01/22/2025 1:50 PM CDT Lab Visit [facility] [address] [place] [address] Medication monitoring encounter; Other terminal manager (current) drug therapy 01/16/2025 12:30 PM CDT Ancillary [place] [facility] [place] [address] [place] [address] Razia Ochoa PA-C Renal mass 01/16/2025 Results Follow-Up [facility] - Urology [address] [facility] [place] [address] Razia Ochoa PA-C 12/24/2024 11:30 AM TITLE CURATOR [facility] [address] Pulmonary Medicine [address] [place] [address] Sujatha Parra MD Severe persistent asthma without complication (HRC) (Primary Dx); Severe persistent asthma, unspecified whether complicated (HRC) 12/24/2024 10:52 AM TITLE CURATOR - 12/24/2024 11:59 PM TITLE CURATOR [facility]counter [facility] Pul[facility] Lab [address] [place] [address] Severe persistent asthma without complication (HRC) (Primary Dx) Discharge Disposition: Home 12/24/2024 Orders Only HIM DEPARTMENT Provider, MD Jose Juan 11/25/2024 Telephone [facility] [address] [place] [address] Sujatha Parra MD Appointment from Last 3 Months Immunizations Immunization Administration Dates Next Due Flu Vac (3+ yrs) 10/18/2005 Flu Vac Preserv Free (3+yrs) 10/07/2013, 09/17/2012,09/14/2011,2009 Influenza IIV3 (Trivalent) F sepideh Highdose, 65+ Yrs (15612) 09/11/2018,11/30/2016,07/27/2015,2013 Influenza IIV4 (Quadrivalent ) Fluad, 65+ Yrs 09/20/2022 Influenza IIV4 (Quadrivalent ) Fluzone, 65+ Yrs 11/23/2021 PCV13 (Prevnar) 07/27/2015 PPSV23 (Pneumovax) 09/20/2022,09/14/2011 Pfizer Bivalent 12+ 09/20/2022 Pfizer Monovalent 12+ Purple Top 022,11/23/2021,01/19/2021,2020 TDAP (BOOSTRIX) 06/14/2013 Social History Tobacco Use [...] Comments Blood Pressure 123/76 12/08/2023 1:25 PM TITLE CURATOR Pulse 91 12/24/2024 11:22 AM TITLE CURATOR Temperature 36.5 C (97.7 F) 03/24/2023 12:57 PM CDT Respiratory Rate 20 03/24/2023 3:38 PM CDT Oxygen Saturation 93% 12/24/2024 11:22 AM TITLE CURATOR Inhaled Oxygen Concentration - - Weight 100.7 kg (222 lb) 12/24/2024 11:22 AM TITLE CURATOR Height 180.3 cm (5' 11) 12/24/2024 11:22 AM TITLE CURATOR Body Mass Index 30.96 12/24/2024 11:22 AM TITLE CURATOR Plan of Treatment Upcoming Encounters Date Type Department Care Team (Late st Contact Info) Description 05/13/2025 10:[address] [facility] [address] Dermatology [address] [place] [address] Vania Cohen MD [address] [place] [address] Health Maintenance Due Date Last Done Comments Zoster/Shingles Vaccine (1 of 2) 1998 DTaP/Tdap/Td Vaccine (2 - Tdap) 06/14/2023 06/14/2013 RSV Vaccine (1 - 1-dose 75+ series) 2023 Colonoscopy 10/17/2023 10/17/2013 Medicare Annual Wellness Visit 10/30/2024 12/08/2023, 03/30/2023, 09/20/2022, Additional history exists COVID-19 Vaccine ( season) 2025 09/02/2024, 09/20/2022, 04/19/2022, Additional history exists Hep C Screening (Preventive Services) Completed 09/20/2022 Pneumococcal Vaccine 50+ Yrs Completed 09/20/2022, 07/27/2015, 09/14/2011 Influenza Vaccine Completed 09/02/2024, , 11/23/2021, Additional history exists Cholesterol Discontinued 01/22/2025, 11/30, 09/20/2022, Additional history exists HepA Vaccine Aged Out No longer eligi ble based on patient's age to complete this topic HepB Vaccine Aged Out No longer eligi ble based on patient's age to complete this topic Hib Vaccine Aged Out No longer eligi ble based on patient's age to complete this topic IPV (Polio) Vaccine Aged Out No longe r eligible based on patient's age to complete this topic MCV4 Vaccine Aged Out No longer eligi ble based on patient's age to complete this topic Meningococcal B Vaccine Aged Out No l onger eligible based on patient's age to complete this topic Procedures Procedure Name Priority Date/Time Associated Diagnosis Comments LIPID PANEL & DIRECT LDL (IF NEEDED) Routine 01/22/2025 2:00 PM CDT Medication monitoring encounter HGB A1C Routine 01/22/2025 2:00 PM CDT Medication monitoring encounter Other shelter (current) drug therapy MR WYMAN W/WO IV CONT Routine 01/16/2025 1 :06 PM CDT Renal mass PULMONARY TEST SC 12/24/2024 COMPLETE PULMONARY FUNCTION TEST Routine 12/23/2024 8:52 AM TITLE CURATOR HEPATITIS C ANTIBODY, WITH REFLEX Routine 09/20/2022 10:18 AM TITLE CURATOR Need for hepatitis C screening test from Last 3 Months or Most Recently Relevant to Health Maintenance Results * Lipid Panel & Direct LDL (if Needed) (01/22/2025 2:00 PM CDT) [facility] Cholesterol 167 0 - 199 mg/dL 01/22/2025 7:26 PM CDT [facility] Triglyceride 81 <=149 mg/dL 01/22/2025 7:26 PM CDT [facility] HDL Cholesterol 56 >=40 mg/dL 7:26 PM T [facility] LDL, Calculated 95 <130 mg/dL 7:26 PM T [facility] Non HDL Chol, Calculated 111 <=159 mg/dL 01/22/2025 7:26 PM T [facility] Cholesterol/HDL Ratio 3.0 <=5.0 01/22/2025 7:26 PM T [facility] Hours Fasting 7.0 8 - 12 Hours 01/22/2025 7:26 PM T [facility] Blood Venipuncture / Unknown 01/22/2025 2:00 PM CDT 01/22/2025 2:00 PM CDT us Nieves Fleming MD LAB_1 Final Result [facility] [address] [place] [address], [facility] * (ABNORMAL) Hgb A1C (01/22/2025 2:00 PM CDT) Hemoglobin A1C (Rapid) 6.2(H) <=5.6 % 01/22/2025 2:43 PM CDT [facility] Estimated Average Glucose (Calc) 131 < 117 mg/dL 01/22/2025 2:43 PM CDT [facility] Comment:Estimated average gl ucose (eAG) converts A1c into glucose units (mg/dL) and estimates average glucose over the past approximately 3 months. The eAG reference interval (<117 mg/dL) corresponds to an A1c of <5.7%. Blood Venipuncture / Unknown 01/22/2025 2:00 PM CDT 01/22/2025 2:00 PM CDT Narrative [facility] - 01/22/2025 2:43 PM CDT For [...] us Nieves Fleming MD LAB_1 Final Result [facility] [address] [place] [address] * MR Abd W/WO IV Cont (01/16/2025 [...] image 54). This shows similar T1 and [id number] since the prior exam. Mild motion artifact [...] Ochoa PA-C RAD MRI Final Re sult * PULMONARY TEST SC (12/24/2024) us Interface Provider DUMMY/OTHER/AR Final Resu lt * Pulmonary Function Test - Complete (12/23/2024 8:52 AM TITLE CURATOR) 12/23/2024 8:52 AM TITLE CURATOR us Sujatha Parra MD PN PFT ORDERABLES Final Re sult [facility] * Hepatitis C Antibody, with Reflex (09/20/2022 10:18 AM TITLE CURATOR) Hepatitis C Antibody Negative (Non Reactive) Negative (Non Reactive) 09/20/2022 2:04 PM TITLE CURATOR [facility] Comment:Antibodies to HCV no t detected. Does not exclude the possiblity of exposure to HCV. Blood Venipuncture / Unknown 09/20/2022 10:18 AM TITLE CURATOR 09/20/2022 10:18 AM TITLE CURATOR us Jarad Malloy MD LAB_1 Final Result [facility] [address] [id number], [facility] from Last 3 Months or Most Recently Relevant to Health Maintenance Insurance MEDICARE ADVANTAGE MEDICARE ADVANTAGE Care Teams Executive Assistant To President Relationship Specialty Start Date End Date Daly Silveira MD [address] [place] [address] PCP - General Internal Medicine 04/08/22
--- OUTSIDE RECORDS SUMMARY | 2025-02-19 09:10 | XMS_ITS | Encounter Summary ---
[facility] Address [address] [address] Care Team Providers Care Money Room Teller Name Role Phone Daly Silveira MD Primary Care Provider +1- [phone] Reason for Referral * Procedure/Equipment (Routine) - Incomplete Specialty Diagnoses / Procedures Referred By Dheerajac t Referred To Contact Diagnoses Renal mass Procedures MR Abd W/WO IV Cont Razia Ochoa PA-C [address] [place] [address] Phone: tel: fax: Referral ID Status Reason Start Date Expiration Date V isits Requested Visits Authorized [id number] Incomplete 07/20/2025 10/19/2026 1 1 Encounter Details Date Type Department Care Team (Late st Contact Info) Description 01/16/2025 Results Follow-Up [facility] - Urology [address] [place], [place] [phone] Razia Ochoa PA-C [address] [place], [place] [address] Social History Tobacco Use Types Packs/Day Years [...] Info) Description 05/13/2025 10:15 AM CDT Appointment [facility] [address] Dermatology [address] [place] [address] Vania Cohen MD [address] [place] [address] Scheduled Orders Name Type Priority Associated Diagnoses Orde r Schedule MR Abd W/WO IV Cont Imaging New Routine Renal mass Expected: 07/20/2025 (Approximate), Expires: 07/20/2026 documented as of this encounter Visit Diagnoses Diagnosis Renal mass- Primary Unspecified disorder of kidney and ureter documented in this encounter Care Teams Money Room Teller Relationship Specialty Start Date End Date Daly Silveira MD [address] [place] [address] PCP - General Internal Medicine 04/08/22 documented as of this encounter
--- OUTSIDE RECORDS SUMMARY | 2025-02-19 09:10 | XMS_ITS | Encounter Summary ---
Author Organization [facility] Address [address] [place] [address] Care Team Providers Care Hand Silvering Supervisor Name Role Phone Daly Silveira MD Primary Care Provider +1- [phone] Reason for Visit * Reason Comments Appt. Needed Encounter Details Date Type Department Care Team (Late st Contact Info) Description 01/30/2025 Telephone [facility] [address] Internal Medicine [address] [facility] [place], [place] [address] Daly Silveira MD [address] [place] [address] Appt. Needed Social History Tobacco Use Types Packs/Day Years [...] as of this encounter Nursing Notes * Debbie Ornelas - 01/31/2025 11:01 AM CDT Patient is aware of EKG order and will call another clinic to schedule. * Iva Reynoso I - 01/30/2025 4:45 PM CDT Patient already has existing EKG order from Dr. Fleming. Can schedule with any nurse team that can do EKG at clinic. * Debbie Ornelas - 01/30/2025 4:34 PM CDT Patient doesn't want to schedule with the [facility] location. Does there need to be an orderput in for them to schedule elsewhere? * Vania Etienne - 01/30/2025 9:42 AM CDT Images from the original note were not included. Jarad Malloy MD Mironova-Chin, Nieves King MD Cc: P [id number] [facility] Frontline Hi Nieves, with his age, it is acceptable for his A1c to get to 7% before starting medication. Onlymanagement I'd recommend at this time is typical lifestyle guidance of diet and exercise. Frontline: please contact patient to schedule EKG nurse visit. Thanks, Will documented in this encounter Plan of Treatment Upcoming Encounters Date Type Department Care Team (Late st Contact Info) Description 05/13/2025 10:15 AM CDT Appointment [facility] [address] Dermatology [address] [place] [address] Vania Cohen MD [address] [place] [address] documented as of this encounter Visit Diagnoses Not on filedocumented in this encounter Care Teams Hand Silvering Supervisor Relationship Specialty Start Date End Date Daly Silveira MD [address] [place] [address] PCP - General Internal Medicine 04/08/22 documented as of this encounter
--- OUTSIDE RECORDS SUMMARY | 2025-02-19 09:10 | XMS_ITS | Encounter Summary ---
Author Organization [facility] Address [address] [address] Care Team Providers Care Bufferer Name Role Phone Daly Silveira MD Primary Care Provider +1- [phone] Reason for Visit * Reason Comments Refill lisinopril (ZESTRIL) 20 MG tablet [Pharmacy Med Name: LISINOPRIL 20MG TABLETS] Encounter Details Date Type Department Care Team (Late st Contact Info) Description 02/07/2025 Refill [facility] [address] [place], [place] [address] Jarad Malloy MD [address] [place], [place] [id number] Refill (lisinopril (ZESTRIL) 20 MG tablet [Pharmacy Med Name: LISINOPRIL 20MG TABLETS]) Social History Tobacco Use Types Packs/Day Years [...] as of this encounter Nursing Notes * Iris Dietz - 02/11/2025 10:55 AM CDT Medication Refill - Overdue for Visit Called patient, was: Successful in reaching patient We recently received a refill request for one of your medications. In order to ensure your medication is safe and effective, your clinician needs to see you at least yearly for an office visit. May [facility] you schedule that office visit? Patient is due for a(n): office visit Patient no longer receiving care at [facility] Frontline: Route to Refill Wizard Admin Pool-PN (P [id number]) * Stacey Collazo RN - 02/11/2025 9:47 AM CDT Further Assistance Needed on Refill from Washer Engineer Helper Patient is due for Qualifying Visit and lab(s). Medication is still pending. Patient is due for an Office/Video Visit in the next 30 days. Call Patient and document using .[employer]. After attempting to schedule patient: Please route to: Beka Malloy or covering provider. Requested Prescriptions Pending Prescriptions Disp Refills lisinopril (ZESTRIL) 20 MG tablet [Pharmacy Med Name: LISINOPRIL 20MG TABLETS] 90 Tablet 0 Sig: TAKE 1 TABLET(20 MG) BY MOUTH DAILY * Romero Barlow Xrwcomm - 02/07/2025 8:55 AM CDT lisinopril (ZESTRIL) 20 MG tablet [Pharmacy Med Name: LISINOPRIL 20MG TABLETS] Medication started: 09/20/2022 Last ordered by JARAD MALLOY H: 07/22/2024 (200 days ago) QTY: 90, Refills: 1, Sig: take 1 tablet (20 mg) by mouth daily. (changed but equivalent) -> An office visit is overdue (performed over 14 months ago, required every 12 months). -> Cr is overdue (performed 16 months ago, required every 12 months) -> K is overdue (performed 23 months ago, required every 12 months) -> Cr is abnormal (1.4 mg/dL lies outside 0.73 mg/dL - 1.18 mg/dL) Last qualifying visit: 12/08/2023 (with JARAD MALLOY) Next scheduled visit: None Cr: 1.4 mg/dL on 10/31/2023 K: 4.6 mEq/L on 03/24/2023 [facility] Embedded Refills, Reference: [id number], 02/07/2025 8:55:40 AM CDT, Pool: JAKOB Refill [facility] - Primary Care [[id number]] ([id number]) documented in this encounter Plan of Treatment Upcoming Encounters Date Type Department Care Team (Late st Contact Info) Description 05/13/2025 10:15 AM CDT Appointment [place] [address] [place] [address] Vania Cohen MD [address] [place] [address] documented as of this encounter Visit Diagnoses Not on filedocumented in this encounter Care Teams Bufferer Relationship Specialty Start Date End Date Daly Silveira MD [address] [facility] [facility] [address] PCP - General Internal Medicine 04/08/22 documented as of this encounter
--- NOTE | 2025-02-19 09:36 | CRLHL7_ITS ---
For Patients: As a result of the Cures Act, medical imaging exams and procedure reports are released immediately into your electronic medical record. You may view this report before your referring provider. If you have questions, please contact your health care provider. INDICATION: Fall COMPARISON: None. TECHNIQUE: Three views left knee, nonweightbearing. FINDINGS: No acute or healing fracture. No dislocation. Tricompartmental osteoarthritis. Even on nonweightbearing images there is complete loss of the medial joint space. No focally destructive bony lesion. Quadriceps enthesophyte onto the patella. Soft tissue swelling anterior to the patella. No joint effusion. No foreign body. IMPRESSION: Prepatellar soft tissue swelling in the left knee. No fracture seen. Dictated by Elizabeth Borjas MD @ 02/19/2025 11:07:01 AM (Electronically Signed)
--- NOTE | 2025-02-19 09:37 | CRLHL7_ITS ---
For Patients: As a result of the Century Cures Act, medical imaging exams and procedure reports are released immediately into your electronic medical record. You may view this report before your referring provider. If you have questions, please contact your health care provider. INDICATION: FELL 2 DAYS AGO, ABD/RIB BRUISING. (Sic) No additional clinical history is given. COMPARISON: None available. TECHNIQUE: CT of the head without intravenous contrast. Please note that all CT scans at this facility use dose modulation, iterative reconstruction, and/or weight-based dosing when appropriate to reduce radiation dose to as low as reasonably achievable. FINDINGS: Motion limited exam. No acute infarct. No intracranial mass or mass effect. No intracranial hemorrhage. No hydrocephalus. Intact skull base and cranial vault. Visualized orbits are without significant incidental findings. Right maxillary sinus mucosal thickening and small dependent effusion. The visualized paranasal sinuses and mastoid air cells are otherwise clear. Unremarkable soft tissues. IMPRESSION: No acute traumatic injury is identified. The study is limited by patient motion artifact. Incidental findings described in the body of the report. Please note that all CT scans at this facility use dose modulation, iterative reconstruction, and/or weight-based dosing when appropriate to reduce radiation dose to as low as reasonably achievable. Dictated by Phillip Arias MD @ 02/19/2025 10:59:18 AM (Electronically Signed)
--- NOTE | 2025-02-19 09:37 | CRLHL7_ITS ---
For Patients: As a result of the Century Cures Act, medical imaging exams and procedure reports are released immediately into your electronic medical record. You may view this report before your referring provider. If you have questions, please contact your health care provider. INDICATION: Fell 2 days ago. Abdomen/rib bruising. TECHNIQUE: Volumetric helical scanning of the chest, abdomen and pelvis was performed with 108 cc of Isovue 370 contrast material IV. Coronal and sagittal reconstructions were obtained. COMPARISON: Chest/abdomen/pelvis CT of 04/15/2021 FINDINGS: CHEST: No pneumothorax, hemothorax or pulmonary contusion is evident. Acute nondisplaced fractures of the lateral left 4th and 5th ribs are demonstrated as well as acute nondisplaced fractures of the anterolateral left 6th and 7th ribs. No acute thoracic spine fracture is evident. A chronic-appearing moderate T6 compression fracture is noted and is new since the 2020 exam. Chronic mild compression fractures of T8 and T9 are again demonstrated. No mediastinal hematoma is apparent. The lungs, airways and pleural spaces are clear. There is no mediastinal or hilar adenopathy. The heart is normal in size. Calcified coronary arterial plaque is demonstrated. ABDOMEN/PELVIS: No free intraperitoneal blood is demonstrated. The liver, spleen, adrenal glands, kidneys and pancreas are intact. No lumbar spinal or pelvic fracture is evident. Renal parenchymal cysts are present bilaterally. On image 164 of series 3, an exophytic 1.9 cm hyperdense cyst or solid mass arises from the posterior mid to upper left kidney, increased from 0.8 cm on the previous examination. Several presumed hyperdense left renal cysts are demonstrated and are unchanged or increased from the prior study. The biliary system is unremarkable. No lymphadenopathy is evident. The bowel is unremarkable except for colonic diverticulosis and a small hiatal hernia. A trabeculated bladder is demonstrated. The prostate is negative. Incidental note is made of thrombus in the right femoral and common femoral veins. IMPRESSION: 1. Acute nondisplaced fractures of the lateral left 4th and 5th ribs and the anterolateral left 6th and 7th ribs. No other obvious acute traumatic abnormality demonstrated. 2. Incidentally noted DVT in the right femoral and common femoral veins. 3. Renal parenchymal cysts bilaterally and 1.9 cm hyperdense cyst or solid mass which is increased from 0.8 cm on the previous examination. Renal MRI is recommended. 4. Trabeculated bladder. 5. Small hiatal hernia. These findings were discussed with Dr. Aguirer at 11:20 a.m. on 02/19/2025. Please note that all CT scans at this facility use dose modulation, iterative reconstruction, and/or weight-based dosing when appropriate to reduce radiation dose to as low as reasonably achievable. Dictated by Nicko Vail MD @ 02/19/2025 11:25:16 AM (Electronically Signed)
--- NOTE | 2025-02-19 09:42 | ED_ITS ---
HPI - General Adult General Chief complaint: Shortness of Breath/Dyspnea Stated complaint: Fell- left knee wrapped and some chest issues Time Seen by Provider: 02/19/25 09:31 History of Present Illness HPI narrative: This 74-year-old male comes in with his because of an injury that occurred 2 days ago. He was out in the barn and fell. He does not remember what happened. He has a laceration to his left knee area and states that he was able to get up and ambulate back to the house. Since then he is worsened with left- sided rib pain and shortness of breath. He does have a history of COPD and is not on oxygen and typically at home. He arrives here with oximetry at 90% on r oom air and initial blood pressure at a systolic value of 87. Repeat blood pressure showed a systolic value of 113. He complains of pain in his left ribs and abdomen and also has pain in his left knee. Related Data Home Medications ?Medication ?Instructions ?Recorded ?Confirmed albuterol sulfate 90 mcg/actuation 2 inh inhalation BID 10/10/22 02/19/25 aerosol inhaler alprazolam 0.5 mg tablet 0.5 mg PO QDAY PRN 10/10/22 02/19/25 aripiprazole 5 mg tablet 5 mg PO DAILY 10/10/22 02/19/25 aspirin 325 mg tablet 325 mg PO QDAY 10/10/22 02/19/25 benzonatate 100 mg capsule 100 mg PO 10/10/22 09/02/24 budesonide 0.5 mg/2 mL suspension 0.5 mg inhalation QDAY PRN 10/10/22 02/19/25 for nebulization cholecalciferol (vitamin D3) 25 2,000 unit PO DAILY 10/10/22 02/19/25 mcg (1,000 unit) capsule clonazepam 1 mg tablet 1 mg PO QDAY PRN 10/10/22 02/19/25 fluticasone furoate 200 1 inh inhalation DAILY 10/10/22 02/19/25 mcg-vilanterol 25 mcg/dose inhalation powder ipratropium 0.5 mg-albuterol 3 mg 3 ml inhalation 10/10/22 09/02/24 (2.5 mg base)/3 mL nebulization soln loratadine 10 mg tablet 10 mg PO DAILY 10/10/22 02/19/25 metoprolol succinate 50 mg ea PO 10/10/22 09/02/24 tablet,extended release 24 hr mirtazapine 45 mg tablet 45 mg PO .Bedtime 10/10/22 02/19/25 prednisone 10 mg tablet 10 mg PO QDAY 10/10/22 09/02/24 quetiapine 300 mg tablet 300 mg PO QDAY 10/10/22 02/19/25 quetiapine 50 mg tablet 50 mg PO .Bedtime 10/10/22 02/19/25 triamcinolone acetonide 0.1 % 1 applic topical 10/10/22 09/02/24 topical ointment Previous Rx's ?Medication ?Instructions ?Recorded dextroamphetamine-amphetamine ER 25 mg PO BID #180 caps 10/10/22 25 mg 24hr capsule,extend release peg 3350-electrolytes 236 240 ml PO Q10M #4,000 mL 09/08/23 gram-22.74 gram-6.74 gram-5.86 gram solution (CogniK) nebulizer and compressor #1 ea 10/17/23 atorvastatin 40 mg tablet 40 mg PO .Bedtime #90 tabs 09/02/24 lisinopril 20 mg tablet 20 mg PO QDAY #90 tabs 09/02/24 omeprazole 40 mg capsule,delayed 40 mg PO QDAY #90 caps 11/07/24 release Allergies Allergy/AdvReac Type Severity Reaction Status Date / Time morphine AdvReac Intermediate drops Verified 02/19/25 09:21 blood pressure Review of Systems Status of ROS: Reports: 10 or more systems reviewed and unremarkable except as noted in History and below Narrative: Constitutional: No fevers, no weight gain or loss. Eyes: No discharge. No vision changes. HENT: No congestion, no sore throat, no ear pain. Cardiovascular: No palpitations. Respiratory: He reports shortness of breath with wheezes. Gastrointestinal: No vomiting, no diarrhea. Genitourinary: No dysuria, no hematuria. Musculoskeletal: Normal range of motion. Left knee injury. Skin: No rashes, no pruritis. Neurological: No dizziness, weakness, sensory change, speech change. Endo/Heme/Allergies: No bruising or bleeding. No polydipsia. Pysch: no suicidality, no anxiety, no insomnia. All other systems reviewed and are negative. [facility] Medical History (Updated 02/19/25 @ 12:01 by Zaire Aguirre MD) History of compression fracture of spine ?Z87.81 - Personal history of (healed) traumatic fracture (ICD-10) Mass of left kidney ?N28.89 - Other specified disorders of kidney and ureter (ICD-10) History of deep venous thrombosis (12/29/11) ?Z86.718 - Personal history of other venous thrombosis and embolism (ICD-10) History of atrial fibrillation (12/29/11) ?Z86.79 - Personal history of other diseases of the circulatory system (ICD- 10) Surgical History (Updated 10/10/22 @ 12:50 by Daly Silveira MD) Status post total shoulder replacement (2014) ?Z96.619 - Presence of unspecified artificial shoulder joint (ICD-10) Squamous cell carcinoma (12/29/11) Rupture of right quadriceps tendon (2013) ?S76.111A - Strain of right quadriceps muscle, fascia and tendon, initial encounter (ICD-10) History of total shoulder replacement (01/15/19) ?Z96.619 - Presence of unspecified artificial shoulder joint (ICD-10) History of hernia repair (09/02/10) ?Z98.890 - Other specified postprocedural states (ICD-10) ?Z87.19 - Personal history of other diseases of the digestive system (ICD-10) History of arthroscopic knee surgery (12/29/11) ?Z98.890 - Other specified postprocedural states (ICD-10) Family History (Updated 10/04/22 @ 17:58 by Mariam Arce) Family/Other Colon cancer Mother Colon cancer Social History (Updated 09/02/24 @ 11:12 by Ninfa Drummond ~ [facility]) What is your current living situation?: I presently have a place to live Problems where you live: no known problems In the past 12 months, utilities in danger of being shut off: no In past 12 months, lack of transportation kept you from medical appts, meetings, work, or getting things needed for daily living: no In the past 12 mos, have been you worried that your food would run out before you had money to buy more?: never true In the past 12 mos, the food you bought just didn't last and you didn't have money to buy more?: never true Smoking Status: Never smoker How often does anyone, including family, friends and others, physically hurt you : never How often does anyone, including family, friends and others, insult or talk down to you: never How often does anyone, including family, friends and others, threaten you with harm: never How often does anyone, including family, friends and others, scream or curse at you: never Exam Narrative: Exam Narrative: Constitutional: Well-developed, well-nourished, no acute distress. HEENT: Normocephalic, atraumatic. Neck: Normal range of motion. Nontender. Supple. Heart: Irregular. No murmurs. Normal rate. Intact distal pulses. Lungs: Bilateral wheezes and rhonchi. Tenderness in the left chest wall and left abdomen. Abdomen: Normal bowel sounds. No rebound tenderness. Bruising noted on the abdomen and the left lower ribs. Genitalia: Deferred. Back: No midline tenderness. Normal range of motion. Extremities: Normal range of motion. Diffuse swelling of the left knee with a 5 cm laceration overlying the patella tendon. Skin: No rash. Warm. No erythema or pallor. Neurologic: No altered sensation. No weakness. Alert and oriented. Psychiatric: No suicidality. No anxiety or depression. No insomnia. Nursing notes and vitals signs are reviewed. Const: Vital Signs, click to edit/add: Vital Signs - 24 hr 02/19/25 09:13 02/19/25 09:34 02/19/25 09:35 Temperature 99.4 F Pulse Rate 71 85 Pulse Rate [Pulse Oximeter] 68 Respiratory Rate 24 37 H 36 H Blood Pressure 113/71 Blood Pressure [Ri ght Upper Arm] 87/60 L Pulse Oximetry 90 85 L 91 Oxygen Delivery Me thod Room Air Room Air Nasal Cannula Oxygen Flow Rate 2 02/19/25 09:43 02/19/25 09:45 02/19/25 09:50 Temperature Pulse Rate 55 L 68 52 L Pulse Rate [Pulse Oximeter] Respiratory Rate 35 H 34 H 33 H Blood Pressure 134/73 146/74 H Blood Pressure [Ri ght Upper Arm] Pulse Oximetry 97 93 96 Oxygen Delivery Me thod Nasal Cannula Nasal Cannula Nasal Cannula Oxygen Flow Rate 2 2 2 Course Vital Signs Vital signs: Initial Vital Signs Temperature 99.4 F 02/19/25 09:13 Temperature Source Temporal Artery Scan 02/19/25 09:13 Pulse Rate 68 02/19/25 09:13 Respiratory Rate 24 02/19/25 09:13 Respiratory Effort Labored, Short of Breath, Accessory Muscle Use 02/19/25 09:13 Respiratory Depth Shallow 02/19/25 09:13 Respiratory Pattern Short of Breath 02/19/25 09:13 Blood Pressure 87/60 L 02/19/25 09:13 Blood Pressure Mean 69 L 02/19/25 09:13 Blood Pressure Position Sitting 02/19/25 09:13 Pulse Oximetry 90 02/19/25 09:13 Oxygen Delivery Method Room Air 02/19/25 09:13 Vital Signs Temperature 99.4 F 02/19/25 09:13 Pulse Rate 68 02/19/25 09:13 Respiratory Rate 24 02/19/25 09:13 Blood Pressure 87/60 L 02/19/25 09:13 Pulse Oximetry 90 02/19/25 09:13 Oxygen Delivery Method Room Air 02/19/25 09:13 Temperature 99.4 F 02/19/25 09:13 Pulse Rate 52 L 02/19/25 09:50 Respiratory Rate 33 H 02/19/25 09:50 Blood Pressure 146/74 H 02/19/25 09:50 Pulse Oximetry 96 02/19/25 09:50 Oxygen Delivery Method Nasal Cannula 02/19/25 09:50 Oxygen Flow Rate 2 02/19/25 09:50 Medications Administered Medications: Discontinued Medications Generic Name Dose Route Start Last Admin Trade Name Freq PRN Reason Stop Dose Admin Sodium Chloride 1,000 mls @ 1,000 mls/hr 02/19/25 09:45 02/19/25 10:46 0.9 % Sodium Chloride 1000 Ml IV 02/19/25 10:44 Infused .Q1H ESME Infusion Medical Decision Making MDM Narrative Medical decision making narrative: This patient comes in for evaluation of injuries that occurred in fall that happened 2 days ago. He has a pre-existing history of COPD. He arrived here with initial blood pressure at systolic value of 96. Repeat blood pressure improved and he has been maintaining sufficient vital signs. He did receive a L of normal saline intravenously. He does not remember what happened with the fall but was able to get up and ambulate back to his house and has been functioning at home the last couple days. He complains of pain in his left ribs and abdomen. A CT scan of his head is obtained and shows no acute findings. CT scan of chest abdomen and pelvis also is obtained and shows 4 nondisplaced fractures of ribs on the left side. He has some cysts on both kidneys that the patient reports were evaluated a few weeks ago with MRI. There is also finding of deep venous thrombosis in the right upper leg. The patient did receive an oral dose of Eliquis. He states that he has steroid and antibiotic medicines at home that he starts whenever his COPD flares up. He states that he did take prednisone and an antibiotic yesterday. He did not know the name of the antibiotic and I could not find this prescription in his records here. The patient did receive an IV dose of Unasyn and also Dilaudid 0.2 mg. I spoke with the surgeon on-call and the hospitalist and arrangements are being made for admission here. His left knee wound is beyond the time frame were repair would be indicated. There is surrounding erythema and some suggestion of infection there. X-ray of the left knee shows no other acute findings. Lab Data Labs: Lab Results 02/19/25 02/19/25 02/19/25 Range/Units 09:13 09:39 09:50 WBC 11.81 H (4.50-11.00) K/uL RBC 4.92 (4.30-5.90) m/uL Hgb 12.8 L (13.5-17.5) gm/dL Hct 40.2 (37.0-53.0) % MCV 82 (80-100) fL MCH 26 (26-34) pg MCHC 32 (32-36) gm/dL RDW Coeff of David 17.1 H (11.5-15.5) % Plt Count 270 (140-440) K/uL Neut % (Auto) 79.1 H (42.0-72.0) % Lymph % (Auto) 9.5 L (20-44) % Hart % (Auto) 10.4 (0.0-11.0) % Eos % (Auto) 0.4 (0.0-7.0) % Baso % (Auto) 0.3 (0.0-3.0) % Neut # (Auto) 9.30 H (1.7-7.0) K/uL Lymph # (Auto) 1.10 (0.90-2.90) K/uL Hart # (Auto) 1.20 H (0.00-0.90) K/UL Eos # (Auto) 0.00 (0.00-0.50) K/uL Baso # (Auto) 0.00 (0.00-0.30) K/uL Abs Immat Gran (auto) 0.00 (0.00-0.30) K/uL Imm/Tot Granulo (auto) 0.3 % Sodium 141 (135-149) mmol/L Potassium 4.4 (3.6-5.1) mmol/L Chloride 106 (96-114) mmol/L Carbon Dioxide 22 (20-32) mmol/L Anion Gap 13 (7-15) mEq/L BUN 38 H (7-30) mg/dL Creatinine 1.8 H (0.5-1.5) mg/dL Estimated Creat Clear 39.46 Estimated GFR 39 ml/min Glucose 161 H (60-115) mg/dL Lactate 2.0 H (0.5-1.9) mmol/L Calcium 9.0 (8.4-10.6) mg/dL Total Bilirubin 0.9 (0.1-1.5) mg/dL Direct Bilirubin 0.4 (0.0-0.5) mg/dL AST 29 (12-35) U/L ALT 20 (4-50) U/L Alkaline Phosphatase 112 (40-150) U/L Total Protein 8.2 (6.0-8.3) g/dL Albumin 4.4 (3.3-5.0) g/dL SARS-CoV-2 (PCR) Negative SARS-CoV-2 (Negative) Influenza Type A (PCR) Negative PCR FLU A (Negative) Influenza Type B (PCR) Negative PCR FLU B (Negative) RSV (PCR) Negative PCR RSV (Negative) POC Creatinine 1.9 H (0.6-1.3) mg/dl POC Troponin I 0.00 L (0.01-0.04) ng/ml Imaging Data CT scan - head: Radiologist's impression: Motion limited exam. No acute infarct. No intracranial mass or mass effect. No intracranial hemorrhage. No hydrocephalus. Intact skull base and cranial vault. Visualized orbits are without significant incidental findings. Right maxillary sinus mucosal thickening and small dependent effusion. The visualized paranasal sinuses and mastoid air cells are otherwise clear. Unremarkable soft tissues. IMPRESSION: No acute traumatic injury is identified. The study is limited by patient motion artifact. Incidental findings described in the body of the report. XR L Knee: Radiologist's impression: Prepatellar soft tissue swelling in the left knee. No fracture seen. ECG Data Attestation: I personally reviewed and interpreted this ECG as follows: Interpretation: Sinus tachycardia. Rate is 103 beats per minute. Occasional PVCs. No specific ST or T-wave abnormalities. Discharge Plan Discharge Clinical Impression: Fracture, ribs, DVT (deep venous thrombosis), COPD (chronic obstructive pulmonary disease) Patient Disposition: Admitted As Observation Condition: Unchanged Prescriptions: No Action quetiapine 50 mg tablet 50 mg PO .Bedtime cholecalciferol (vitamin D3) 25 mcg (1,000 unit) capsule 2,000 unit PO DAILY loratadine 10 mg tablet 10 mg PO DAILY aripiprazole 5 mg tablet 5 mg PO DAILY fluticasone furoate-vilanterol 200-25 mcg/dose blister with device 1 inh inhalation DAILY mirtazapine 45 mg tablet 45 mg PO .Bedtime clonazepam 1 mg tablet 1 mg PO QDAY PRN quetiapine 300 mg tablet 300 mg PO QDAY prednisone 10 mg tablet 10 mg PO QDAY aspirin 325 mg tablet 325 mg PO QDAY ipratropium-albuterol 0.5 mg-3 mg(2.5 mg base)/3 mL solution for nebulization 3 ml inhalation alprazolam 0.5 mg tablet 0.5 mg PO QDAY PRN budesonide 0.5 mg/2 mL suspension for nebulization 0.5 mg inhalation QDAY PRN metoprolol succinate 50 mg tablet extended release 24 hr PO triamcinolone acetonide 0.1 % ointment 1 applic topical benzonatate 100 mg capsule 100 mg PO albuterol sulfate 90 mcg/actuation HFA aerosol inhaler 2 inh inhalation BID dextroamphetamine-amphetamine 25 mg capsule,extended release 24hr 25 mg PO BID Qty: 180 0RF lisinopril 20 mg tablet 20 mg PO QDAY Qty: 90 3RF atorvastatin 40 mg tablet 40 mg PO .Bedtime Qty: 90 3RF peg 3350-electrolytes [Golytely] 236-22.74-6.74 -5.86 gram recon soln 240 ml PO Q10M Qty: 4000 0RF Rx Instructions: until fecal effluent is clear (DME) nebulizer and compressor Device See Rx Instructions .Route Qty: 1 0RF Rx Instructions: As directed omeprazole 40 mg capsule,delayed release(DR/EC) 40 mg PO QDAY Qty: 90 3RF Follow Up/Referrals: Daly Silveira MD [Primary Care Provider] -
[2025-02-19] MEDS: 0.9 % SODIUM CHLORIDE 1000 ml 1,000 ML IV (09:46)
[2025-02-19 10:02] LABS: Creatinine, Point-of-Care* 1.9 mg/dl (0.6-1.3)
[2025-02-19 10:06] LABS: Basophils Percent Auto 0.3 % (0.0-3.0); Eosinophils Percent Auto 0.4 % (0.0-7.0); Hematocrit 40.2 % (37.0-53.0); Hemoglobin* 12.8 gm/dL (13.5-17.5); Immature Granulocytes Pct Auto 0.3 %; Lymphocytes Percent Auto 9.5 % (20-44); Mean Corpuscular HGB Conc 32 gm/dL (32-36); Mean Corpuscular Hemoglobin 26 pg (26-34); Mean Corpuscular Volume 82 fL (80-100); Monocytes Percent Auto 10.4 % (0.0-11.0); Neutrophils Percent Auto 79.1 % (42.0-72.0); Platelet Count* 270 K/uL (140-440); RDW Coefficient of Variation % 17.1 % (11.5-15.5); Red Blood Count 4.92 m/uL (4.30-5.90); White Blood Count* 11.81 K/uL (4.50-11.00)
[2025-02-19 10:13] LABS: Slide Review Reflex No
--- OUTSIDE RECORDS SUMMARY | 2025-02-19 10:15 | XMS_ITS | Encounter Summary ---
Author Organization [facility] Address [address] [place] [address] Care Team Providers Care Building Wrecker Name Role Phone Daly Silveira MD Primary Care Provider [phone]- [phone] Reason for Visit * Reason Comments Appt. Needed Encounter Details Date Type Department Care Team (Late st Contact Info) Description 01/30/2025 Telephone [facility] [address] [facility]. [place], [place] [address] Daly Silveira MD [address] [place] [address] Appt. Needed Social History Tobacco Use Types [...] Patient doesn't want to schedule with the [facility] location. Does there need to be an [...] Info) Description 05/13/2025 10:15 AM CDT Appointment [facility] [address] [place] [address] Vania Cohen MD [address] [place] [address] documented as of this encounter Visit Diagnoses Not on filedocumented in this encounter Care Teams Building Wrecker Relationship Specialty Start Date End Date Daly Silveira MD [address] [place] [address] PCP - General Internal Medicine 04/08/22 documented as of this encounter
--- OUTSIDE RECORDS SUMMARY | 2025-02-19 10:15 | XMS_ITS | Encounter Summary ---
[facility] Address [address], [place] [address] Care Team Providers Care Assembler [employer] Name Role Phone Daly Silveira MD Primary Care Provider [phone]- [phone] Reason for Visit * Auth/Cert (Routine) Specialty Diagnoses / Procedures Referred By Contac t Referred To Contact Diagnoses Incomplete bladder emptying Procedures TRANSURETHRAL RESECTION OF THE PROSTATE Referral ID Status Reason Start Date Expiration Date Visits Re quested Visits Authorized [id number] 1 1 Encounter Details Date Type Department Care Team (Late Contact Info) Description 08/09/2024 Hospital Encounter [facility] [address] [facility]. [place], [place] [id number] Guru Jamison MD [address] [place], [place] [id number] Social History Tobacco Use Types Packs/Day Years [...] Info) Description 05/13/2025 10:15 AM CDT Appointment [facility] [address] [place], [place] [id number] Vania Cohen MD [address] [place] [id number] documented as of this encounter Visit Diagnoses Diagnosis Incomplete bladder emptying- Primary documented in this encounter Admitting Diagnoses Diagnosis Incomplete bladder emptying documented in this encounter Care Teams [employer] Relationship Specialty Start Date End Date Daly Silveira MD [address] [place] [address] PCP - General Internal Medicine 04/08/22 documented as of this encounter
--- OUTSIDE RECORDS SUMMARY | 2025-02-19 10:15 | XMS_ITS | Encounter Summary ---
Author Organization [facility] Address [address] [address] Care Team Providers Care Independent Crop Consultant Name Role Phone Daly Silveira MD Primary Care Provider +1- [phone] Encounter Details Date Type Department Care Team (Late st Contact Info) Description 01/22/2025 1:50 PM CDT Lab Visit [facility] [address] [place] [address] Medication monitoring encounter; Other [place] [facility] ([facility] drug therapy Social History Tobacco Use [...] Info) Description 05/13/2025 10:15 AM CDT Appointment [place] [address] Dermat[address] [facility] [place] [address] Vania Cohen MD [address] [place] [address] documented as of this encounter Procedures Procedure Name Priority Date/Time Associated Diagnosis Comments LIPID PANEL & DIRECT LDL (IF NEEDED) Routine 01/22/2025 2:00 PM CDT Medication monitoring encounter HGB A1C Routine 01/22/2025 2:00 PM CDT Medication monitoring encounter Other [place] [facility] ([facility] drug therapy documented in this encounter Results * Lipid Panel & Direct LDL (if Needed) (01/22/2025 2:00 PM CDT) [facility] Cholesterol 167 0 - 199 mg/dL 01/22/2025 7:26 PM CDT [facility] Triglyceride 81 <=149 mg/dL 01/22/2025 7:26 PM T [facility] HDL Cholesterol 56 >=40 mg/dL 7:26 PM T [facility] LDL, Calculated 95 <130 mg/dL 7:26 PM T [facility] Non HDL Chol, Calculated 111 <=159 mg/dL 01/22/2025 7:26 PM [facility] Cholesterol/HDL Ratio 3.0 <=5.0 01/22/2025 7:26 PM [facility] Hours Fasting 7.0 8 - 12 Hours 01/22/2025 7:26 PM [facility] Blood Venipuncture / Unknown 01/22/2025 2:00 PM CDT 01/22/2025 2:00 PM CDT Nieves Fleming MD LAB_1 Final Result [facility] [address] [place] [address], [facility] * (ABNORMAL) Hgb A1C (01/22/2025 2:00 PM CDT) Pathologist [facility] Hemoglobin A1C (Rapid) 6.2(H) <=5.6 % 01/22/2025 2:43 PM CDT [facility] Estimated Average Glucose (Calc) 131 < 117 mg/dL 01/22/2025 2:43 PM T [facility] Comment:Estimated average gl ucose (eAG) converts A1c into glucose units (mg/dL) and estimates average glucose over the past approximately 3 months. The eAG reference interval (<117 mg/dL) corresponds to an A1c of <5.7%. Blood Venipuncture / Unknown 01/22/2025 2:00 PM CDT 01/22/2025 2:00 PM CDT Narrative [facility] - 01/22/2025 2:43 PM CDT For [...] us Nieves Fleming MD LAB_1 Final Result [facility] [address] [place] [address] documented in this encounter Visit Diagnoses Diagnosis Medication monitoring encounter Encounter for therapeutic drug monitoring Other [place] [facility] (current) drug therapy documented in this encounter Care Teams Independent Crop Consultant Relationship Specialty Start Date End Date Daly Silveira MD [address] [place] [address] PCP - General Internal Medicine 04/08/22 documented as of this encounter
--- OUTSIDE RECORDS SUMMARY | 2025-02-19 10:15 | XMS_ITS | Encounter Summary ---
Author Organization [facility] Address [address] [address] Care Team Providers Care Casting And Curing Operator Name Role Phone Daly Silveira MD Primary Care Provider +1- [phone] Reason for Referral * Procedure/Equipment (Routine) - Incomplete Specialty Diagnoses / Procedures Referred By Dheerajac t Referred To Contact Diagnoses Renal mass Procedures MR Abd W/WO IV Cont Razia Ochoa PA-C [address] [place] [address] Phone: tel: fax: Referral ID Status Reason Start Date Expiration Date V isits Requested Visits Authorized [id number] Incomplete 07/20/2025 10/19/2026 1 1 Encounter Details Date Type Department Care Team (Late st Contact Info) Description 01/16/2025 Results Follow-Up [facility] Center - Urology [address] [place], [place] [address] Razia Ochoa PA-C [address] [place], [place] [address] Social History Tobacco Use Types Packs/Day Years [...] Info) Description 05/13/2025 10:15 AM CDT Appointment [facility] [address] Dermatology [address] [place] [address] Vania Cohen MD [address] [place] [address] Scheduled Orders Name Type Priority Associated Diagnoses Orde r Schedule MR Abd W/WO IV Cont Imaging New Routine Renal mass Expected: 07/20/2025 (Approximate), Expires: 07/20/2026 documented as of this encounter Visit Diagnoses Diagnosis Renal mass- Primary Unspecified disorder of kidney and ureter documented in this encounter Care Teams Casting And Curing Operator Relationship Specialty Start Date End Date Daly Silveira MD [address] [facility] [place] [address] PCP - General Internal Medicine 04/08/22 documented as of this encounter
--- OUTSIDE RECORDS SUMMARY | 2025-02-19 10:15 | XMS_ITS | Encounter Summary ---
Author Organization [facility] Address [address] [address] Care Team Providers Care Banbury Mixer Operator Name Role Phone Dayl Silveira MD Primary Care Provider +1- [phone] Reason for Visit * Procedure/Equipment (Routine) - Incomplete Specialty Diagnoses / Procedures Referred By Contac t Referred To Contact Diagnoses Renal mass Procedures MR Abd W/WO IV Cont Razia Ochoa PA-C [address] [place] [address] Phone: tel: fax: Referral ID Status Reason Start Date Expiration Date V isits Requested Visits Authorized [id number] Incomplete 01/16/2025 04/17/2026 1 1 Encounter Details Date Type Department Care Team (Late st Contact Info) Description 01/16/2025 12:30 PM CDT Ancillary Procedure [facility] [address] [place] [address] Razia Ochoa PA-C [address] [place], [place] [id number] Renal mass Social History Tobacco Use Types [...] Appointment [facility] [address]erm[address] [place] [address] Vania Cohen MD [address] [place] [address] documented as of this encounter Procedures Procedure [...] image 54). This shows similar T1 and [id number] since the prior exam. Mild motion artifact [...] mL documented in this encounter Care Teams Banbury Mixer Operator Relationship Specialty Start Date End Date Daly Silveira MD [address] [place] [address] PCP - General Internal Medicine 04/08/22 documented as of this encounter
--- OUTSIDE RECORDS SUMMARY | 2025-02-19 10:15 | XMS_ITS | Encounter Summary ---
Author Organization [facility] Address [address], [place] [address] Care Team Providers Care Cushion Stuffer Name Role Phone Daly Silveira MD Primary Care Provider +1- [phone] Reason for Visit * Reason Comments Refill lisinopril (ZESTRIL) 20 MG tablet [Pharmacy Med Name: LISINOPRIL 20MG TABLETS] Encounter Details Date Type Department Care Team (Late st Contact Info) Description 02/07/2025 Refill [facility] [address] [place], [place] [phone] Jarad Malloy MD [address] [place], [place] [id number] Refill (lisinopril (ZESTRIL) 20 MG tablet [Pharmacy [...] as of this encounter Nursing Notes * rIis Dietz - 02/11/2025 10:55 AM CDT Medication Refill - Overdue for Visit Called patient, was: Successful in reaching patient We recently received a refill request for one of your medications. In order to ensure your medication is safe and effective, your clinician needs to see you at least yearly for an office visit. [facility] you schedule that office visit? Patient is due for a(n): office visit Patient no longer receiving care at [facility] Frontline: Route to Refill Wizard Admin Pool-PN (P [id number]) * Stacey Collazo RN - 02/11/2025 9:47 AM CDT Further Assistance Needed on Refill from Supervisor Contingents Patient is due for Qualifying Visit and lab(s). Medication is still pending. Patient is due for an Office/Video Visit in the next 30 days. Call Patient and document using [employer]. After attempting to schedule patient: Please route [...] on 10/31/2023 K: 4.6 mEq/L on 03/24/2023 [facility] Embedded Refills, Reference: [id number], 02/07/2025 8:55:40 AM CDT, Pool: JAKOB Refill Centralized Services - Primary Care [[id number]] ([id number]) documented in this encounter Plan of Treatment Upcoming Encounters Date Type Department Care Team (Late st Contact Info) Description 05/13/2025 10:15 AM CDT Appointment [place] [address] [place] [address] Vania Cohen MD [address] [place] [address] documented as of this encounter Visit Diagnoses Not on filedocumented in this encounter Care Teams Cushion Stuffer Relationship Specialty Start Date End Date Daly Silveira MD [address] [facility] [address] PCP - General Internal Medicine 04/08/22 documented as of this encounter
--- OUTSIDE RECORDS SUMMARY | 2025-02-19 10:15 | XMS_ITS | Clinical Summary ---
Author Organization [facility] Address [address] [place] [address] Care Team Providers Care Kicking Machine Operator Name Role Phone Daly Silveira MD Primary Care Provider +1- [phone] Allergies Active Allergy Reactions Criticality Noted Date [...] NEEDS OFFICE VISIT FOR FURTHER REFILLS. CALL [phone] TO SCHEDULE. 180 Tablet 1 02/19/2024 Active Active Problems Problem Noted Date Diagnosed Date A-fib 07/20/2020 Overview (07/20/2020): - remote hx in 2004 - s/p ablation ASHD (arteriosclerotic heart disease) 07/20/2020 Overview (07/20/2020): - angiogram 2006: mild ASHD - [facility] Nuclear Stress test: fixed inferior defect [...] on file Legal Sex Male 6:05 AM STADIUM MANAGER Gender Identity Not on file Sexual Orientation Not on file Obstetrics History Last Filed Vital Signs Vital Sign Reading Time Taken Comments Blood Pressure 118/84 09/13/2022 10:34 AM STADIUM MANAGER Pulse 58 09/13/2022 10:34 AM STADIUM MANAGER Temperature 35.6 C (96 F) 07/20/2020 4:00 PM CDT Respiratory Rate 16 09/13/2022 10:3 4 AM STADIUM MANAGER Oxygen Saturation 99% 09/13/2022 10: 34 AM STADIUM MANAGER on room air Inhaled Oxygen Concentration - - Weight 95.9 kg (211 lb 6.4 oz) 09/13/20 10:34 AM STADIUM MANAGER with boots Height 185.4 cm (6' 1) 09/13/2022 10:3 4 AM STADIUM MANAGER Body Mass Index 27.89 09/13/2022 10:34 AM STADIUM MANAGER Plan of Treatment Health Maintenance Due Date [...] 2025 Insurance MEDICARE ADVANTAGE MR [place]HA[place] ESCOBAR [id number] Advance Directives * Full Code (Latest Code Status on File) Date Activated Date Inactivated Comments 07/20/2020 10:07 AM 07/20/2020 6:32 PM Question Answer Comments Code Status Discussion: Discussed Care Teams Kicking Machine Operator Relationship Specialty Start Date End Date Daly Silveira MD [address] [place] [address] PCP - General Internal Medicine 07/02/20
--- OUTSIDE RECORDS SUMMARY | 2025-02-19 10:15 | XMS_ITS | Clinical Summary ---
Author Organization [facility] Address [address] [place] [address] Care Team Providers Care Naval Gunfire Liaison Officer Name Role Phone Daly Silveira MD Primary Care Provider +1- [phone] Source Comments You are receiving this document as you are listed as the primary care provider,follow-up provider, or the patient has been referred to you for consultation.This is in compliance with the Medicare and[facility] EHR Incentive Program,which states Providers who transition their patient to another setting of careor provider of care or refers their patient to another provider of care shouldprovide summary care record for each transition of care or referral. [place] Allergies Active Allergy Reactions Criticality Noted Date [...] Management support. He agrees to work with [facility] to assist with connection to mental health resources and understanding his cardiovascular plan of care. Janette Lujan RN 09/03/2020, 5:06 PM Update 08/26- Closing case, goals have been met. Problem Noted Date Diagnosed Date S/P ablation of atrial fibrillation 01/20/2025 [facility] (current) use of aspirin 01/20/2025 Non-ischemic cardiomyopathy [...] this according to patient. ; Rheumatoid arthritis(714.0) ([facility]) Vitamin D deficiency 10/09/2013 Generalized anxiety [...] Multiple other NMSC's in past treated at [facility] Severe episode of recurrent major depressive dis order 11/28/2007 Coronary artery disease invo lving [place] coronary artery of [place] heart without angina pectoris 08/02/2005 Overview (12/08/2023): - angiogram 2006: mild NAZARETHD - [facility] Nuclear Stress test: fixed inferior defect with no evidence of ischemia; EF 42% - Echo 05/15/2020: EF 50-55%; mid posterior and inferior wall hypokinesis Resolved Problems Problem Noted Date Diagnosed Date Resolved Date 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 Sepsis 09/28/2012 09/20/2022 Overview (06/21/2017): Sepsis(995.91) ([facility]) Major depressive disorder, r ecurrent episode, moderate 06/01/2011 12/20/2024 Dysthymia 06/01/2011 11/04/2014 Encounters * This document contains information received from the source organization and may not represent a complete record from that organization. Date Type Department Care Team Description 02/07/2025 Refill [facility] [address] [place] [address] Jarad Malloy MD Refill (lisinopril (ZESTRIL) 20 MG tablet [Pharmacy Med Name: LISINOPRIL 20MG TABLETS]) 01/30/2025 Telephone [facility] [address] Internal Medicine [address] [place] [address] Daly Silveira MD Appt. Needed 01/22/2025 1:50 PM CDT Lab Visit [facility] [address] [place] [address] Medication monitoring encounter; Other long term care social worker (current) drug therapy 01/16/2025 12:30 PM CDT Ancillary Procedure [facility] [place] [address] [place] [address] Razia Ochoa PA-C Renal mass 01/16/2025 Results Follow-Up [facility] - Urology [address] [facility] [place] [address] Razia Ochoa PA-C 12/24/2024 11:30 AM TICKET TAKER Office Visit [facility] [address] Pulmonary Medicine [address] [place] [address] Sujatha Parra MD Severe persistent asthma without complication (HRC) (Primary Dx); Severe persistent asthma, unspecified whether complicated (HRC) 12/24/2024 10:52 AM TICKET TAKER - 12/24/2024 11:59 PM TICKET TAKER Hospital Encounter [facility] 39[address] Pulmonary Lab [address] [place] [address] Severe persistent asthma without complication (HRC) (Primary Dx) Discharge Disposition: Home 12/24/2024 Orders Only HIM DEPARTMENT Provider, MD Jose Juan 11/25/2024 Telephone [facility] [address] Pulmonary Medicine [address] [place] [address] Sujatha Parra MD Appointment from Last 3 Months Immunizations Immunization Administration Dates Next Due Flu Vac (3+ yrs) 10/18/2005 Flu Vac Preserv Free (3+yrs) 10/07/2013, 09/17/2012,09/14/2011,2009 Influenza IIV3 (Trivalent) F sepideh Highdose, 65+ Yrs (04901) 09/11/2018,11/30/2016,07/27/2015,2013 Influenza IIV4 (Quadrivalent ) Fluad, 65+ [...] Comments Blood Pressure 123/76 12/08/2023 1:25 PM TICKET TAKER Pulse 91 12/24/2024 11:22 AM TICKET TAKER Temperature 36.5 C (97.7 F) 03/24/2023 12:57 PM CDT Respiratory Rate 20 03/24/2023 3:38 PM CDT Oxygen Saturation 93% 12/24/2024 11:22 AM TICKET TAKER Inhaled Oxygen Concentration - - Weight 100.7 kg (222 lb) 12/24/2024 11:22 AM TICKET TAKER Height 180.3 cm (5' 11) 12/24/2024 11:22 AM TICKET TAKER Body Mass Index 30.96 12/24/2024 11:22 AM TICKET TAKER Plan of Treatment Upcoming Encounters Date Type Department Care Team (Late st Contact Info) Description 05/13/2025 10:[address] [facility] [address] Dermatology [address] [place] [address] Vania Cohen MD [address] [place] [address] Health Maintenance Due Date Last Done Comments [...] 2:00 PM CDT Medication monitoring encounter Other group home (current) drug therapy MR WYMAN W/WO IV CONT Routine 01/16/2025 1 :06 PM CDT Renal mass PULMONARY TEST SC 12/24/2024 COMPLETE PULMONARY FUNCTION TEST Routine 12/23/2024 8:52 AM TICKET TAKER HEPATITIS C ANTIBODY, WITH REFLEX Routine 09/20/2022 10:18 AM TICKET TAKER Need for hepatitis C screening test from Last 3 Months or Most Recently Relevant to Health Maintenance Results * Lipid Panel & Direct LDL (if Needed) (01/22/2025 2:00 PM CDT) [facility] Cholesterol 167 0 - 199 mg/dL 01/22/2025 7:26 PM CDT [facility] Triglyceride 81 <=149 mg/dL 01/22/2025 7:26 PM CDT [facility] HDL Cholesterol 56 >=40 mg/dL 7:26 PM T [facility] LDL, Calculated 95 <130 mg/dL 7:26 PM T [facility] Non HDL Chol, Calculated 111 <=159 mg/dL 01/22/2025 7:26 PM T [facility] Cholesterol/HDL Ratio 3.0 <=5.0 01/22/2025 7:26 PM T [facility] Hours Fasting 7.0 8 - 12 Hours 01/22/2025 7:26 PM T [facility] Blood Venipuncture / Unknown 01/22/2025 2:00 PM CDT 01/22/2025 2:00 PM CDT us Nieves Fleming MD LAB_1 Final Result [facility] [address] [place] [address], [facility] * (ABNORMAL) Hgb A1C (01/22/2025 2:00 PM CDT) Hemoglobin A1C (Rapid) 6.2(H) <=5.6 % 01/22/2025 2:43 PM CDT [facility] Estimated Average Glucose (Calc) 131 < 117 mg/dL 01/22/2025 2:43 PM CDT [facility] Comment:Estimated average gl ucose (eAG) converts A1c into glucose units (mg/dL) and estimates average glucose over the past approximately 3 months. The eAG reference interval (<117 mg/dL) corresponds to an A1c of <5.7%. Blood Venipuncture / Unknown 01/22/2025 2:00 PM CDT 01/22/2025 2:00 PM CDT Narrative [facility] - 01/22/2025 2:43 PM CDT For [...] us Nieves Fleming MD LAB_1 Final Result [facility] [address] [place] [address] * MR Abd W/WO IV Cont [...] image 54). This shows similar T1 and [id number] since the prior exam. Mild motion artifact [...] Function Test - Complete (12/23/2024 8:52 AM TICKET TAKER) 12/23/2024 8:52 AM TICKET TAKER us Sujatha Parra MD PN PFT ORDERABLES Final Re sult PN [facility] * Hepatitis C Antibody, with Reflex (09/20/2022 10:18 AM TICKET TAKER) Hepatitis C Antibody Negative (Non Reactive) Negative (Non Reactive) 09/20/2022 2:04 PM TICKET TAKER [facility] Comment:Antibodies to HCV no t detected. Does not exclude the possiblity of exposure to HCV. Blood Venipuncture / Unknown 09/20/2022 10:18 AM TICKET TAKER 09/20/2022 10:18 AM TICKET TAKER us Jarad Malloy MD LAB_1 Final Result [facility] [address] [place] [id number], [facility] from Last 3 Months or Most Recently Relevant to Health Maintenance Insurance MEDICARE ADVANTAGE MEDICARE ADVANTAGE Care Teams Naval Gunfire Liaison Officer Relationship Specialty Start Date End Date Daly Silveira MD [address] [place] [address] PCP - General Internal Medicine 04/08/22
[2025-02-19 10:32] LABS: Albumin* 4.4 g/dL (3.3-5.0); Chloride* 106 mmol/L (96-114); Potassium* 4.4 mmol/L (3.6-5.1); Sodium* 141 mmol/L (135-149)
[2025-02-19 10:34] LABS: Blood Urea Nitrogen* 38 mg/dL (7-30); Creatinine* 1.8 mg/dL (0.5-1.5); Est. Creatinine Clearance* 39.46; Estimated Glomerular Filt Rate 39 ml/min
[2025-02-19 10:35] LABS: Alanine Aminotransferase* 20 U/L (4-50); Alkaline Phosphatase* 112 U/L (40-150); Anion Gap 13 mEq/L (7-15); Aspartate Amino Transferase* 29 U/L (12-35); Bilirubin Total* 0.9 mg/dL (0.1-1.5); Carbon Dioxide* 22 mmol/L (20-32); Glucose* 161 mg/dL (60-115); Total Protein* 8.2 g/dL (6.0-8.3)
[2025-02-19 10:49] LABS: Bilirubin Direct* 0.4 mg/dL (0.0-0.5)
[2025-02-19 10:52] LABS: PCR FLU A Negative PCR FLU A (Negative); PCR FLU B Negative PCR FLU B (Negative); PCR RSV Negative PCR RSV (Negative); SARS PCR* Negative SARS-CoV-2 (Negative)
--- NOTE | 2025-02-19 11:57 | P.GSCN_ITS ---
History of Present Illness Consult details Date Seen: 02/19/25 Consult date: 02/19/25 Narrative: The patient is a 74-year-old male who presented to the emergency department today after a fall 2 days ago. He states that he was in the barn and trying to climb into a bunk and tripped and fell. He does not remember what happened and is not sure if he lost consciousness. He stated that after he fell ?everything hurt. ? He was able to go into the house. There were he was noted to have a laceration to his knee. This was covered with a bandage. Over the past few days he has progressively worsened and had increased left-sided pain and shortness of breath. In the emergency department he was found to be satting 90% on room air. CT scan of the head showed no acute intracranial pathology. CT scan of the chest abdomen pelvis showed for nondisplaced rib fractures on the left. He also was found to have an incidental femoral DVT in his right leg. He was noted to be hypotensive with a systolic blood pressure of 87. Repeat blood pressure came up to 113 however after 1 L of normal saline. He does have a history of COPD and asthma though he is a nonsmoker. He follows with pulmonology for this. The patient states on initial questioning that he has pain ?all over. But then localizes it to his left chest and left knee. [facility] Medical History (Updated 02/19/25 @ 16:06 by Coral Hernandez PA-C) Renal cyst ?N28.1 - Cyst of kidney, acquired (ICD-10) History of compression fracture of spine ?Z87.81 - Personal history of (healed) traumatic fracture (ICD-10) Mass of left kidney ?N28.89 - Other specified disorders of kidney and ureter (ICD-10) History of deep venous thrombosis (12/29/11) ?Z86.718 - Personal history of other venous thrombosis and embolism (ICD-10) History of atrial fibrillation (12/29/11) ?Z86.79 - Personal history of other diseases of the circulatory system (ICD- 10) Surgical History Status post total shoulder replacement (2014) ?Z96.619 - Presence of unspecified artificial shoulder joint (ICD-10) Squamous cell carcinoma (12/29/11) Rupture of right quadriceps tendon (2013) ?S76.111A - Strain of right quadriceps muscle, fascia and tendon, initial encounter (ICD-10) History of total shoulder replacement (01/15/19) ?Z96.619 - Presence of unspecified artificial shoulder joint (ICD-10) History of hernia repair (09/02/10) ?Z98.890 - Other specified postprocedural states (ICD-10) ?Z87.19 - Personal history of other diseases of the digestive system (ICD-10) History of arthroscopic knee surgery (12/29/11) ?Z98.890 - Other specified postprocedural states (ICD-10) Family History Family/Other Colon cancer Mother Colon cancer Social History What is your current living situation?: I presently have a place to live Problems where you live: no known problems Problems where you live details: none In the past 12 months, utilities in danger of being shut off: no In past 12 months, lack of transportation kept you from medical appts, meetings, work, or getting things needed for daily living: no In the past 12 mos, have been you worried that your food would run out before you had money to buy more?: never true In the past 12 mos, the food you bought just didn't last and you didn't have money to buy more?: never true Highest level of school completed/degree received: high school graduate Smoking Status: Never smoker Do you use any of these nicotine containing products: None How often do you have a drink containing alcohol: never AUDIT-C Alcohol total score: 0 Non-prescribed substance use: denies use Caffeine: No How often does anyone, including family, friends and others, physically hurt you : never How often does anyone, including family, friends and others, insult or talk down to you: never How often does anyone, including family, friends and others, threaten you with harm: never How often does anyone, including family, friends and others, scream or curse at you: never service: No Meds Home Medications and Allergies Home Medications ?Medication ?Instructions ?Recorded ?Confirmed ?Type albuterol sulfate 90 mcg/actuation 2 inh inhalation Q4H PRN 10/10/22 02/19/25 History aerosol inhaler alprazolam 0.5 mg tablet 0.5 mg PO DAILY PRN 10/10/22 02/19/25 History aripiprazole 5 mg tablet 5 mg PO DAILY 10/10/22 02/19/25 History aspirin 325 mg tablet 325 mg PO DAILY 10/10/22 02/19/25 History benzonatate 100 mg capsule 100 mg PO TID PRN 10/10/22 02/19/25 History budesonide 0.5 mg/2 mL suspension 0.5 mg inhalation QDAY 10/10/22 02/19/25 History for nebulization cholecalciferol (vitamin D3) 25 3,000 unit PO DAILY 10/10/22 02/19/25 History mcg (1,000 unit) capsule fluticasone furoate 200 1 inh inhalation DAILY 10/10/22 02/19/25 History mcg-vilanterol 25 mcg/dose inhalation powder ipratropium 0.5 mg-albuterol 3 mg 3 ml inhalation Q6H PRN 10/10/22 02/19/25 History (2.5 mg base)/3 mL nebulization soln loratadine 10 mg tablet 10 mg PO DAILY PRN 10/10/22 02/19/25 History prednisone 10 mg tablet 10 mg PO QDAY PRN 10/10/22 02/19/25 History quetiapine 300 mg tablet 600 mg PO QDAY 10/10/22 02/19/25 History triamcinolone acetonide 0.1 % 1 applic topical 10/10/22 09/02/24 History topical ointment atorvastatin 40 mg tablet 40 mg PO HS 02/19/25 02/19/25 History dextroamphetamine-amphetamine ER 20 mg PO QDAY PRN 02/19/25 02/19/25 History 10 mg 24hr capsule,extend release escitalopram oxalate 20 mg tablet 20 mg PO BID 02/19/25 02/19/25 History mirtazapine 15 mg tablet 15 mg PO QPM 02/19/25 02/19/25 History tamsulosin 0.4 mg capsule 0.4 mg PO DAILY 02/19/25 02/19/25 History Allergies Allergy/AdvReac Type Severity Reaction Status Date / Time morphine AdvReac Intermediate drops Verified 02/19/25 09:21 blood pressure Exam Narrative: Exam Narrative: General appearance: Alert, cooperative, however, the patient is in respiratory distress. Eyes: PERRLA, eye lids clear, and sclera white HENT Head: Normocephalic, no bruises. Ears: External ears normal Pulmonary: Coarse breath sounds bilaterally, this is audible with and without auscultation. Chest wall: Patient does have ecchymosis anteriorly on the inferior left chest wall. Cardiovascular Heart: Lung sounds obscure auscultation of heart. Rate is regular on monitor. Rhythm may be slightly irregular on monitor, however palpation of radial pulse was regular. Extremities: Surgical stars noted on right shoulder. No swelling or pain or in range of motion of bilateral upper extremities. Right lower extremity without swelling or bruising. Left knee with swelling and cellulitis noted. Dressing removed. There is a irregular laceration with a no other small open area with eschar noted in both. There is some foul smelling drainage. The Gastrointestinal Abdominal: Protuberant. Patient complains of tenderness to palpation on the left abdomen. Musculoskeletal: Extremities: Upper: Both upper extremities have normal joint range of motion and intact strength. Lower: Both lower extremities have normal joint range of motion and intact strength. Spine: Cervical spine without midline tenderness. Normal range of motion. Thoracic spine with no midline tenderness noted at the mid spine and lower thoracic/upper lumbar spine. Skin: Normal skin color, texture, and turgor. Neurologic: No focal deficits Psychiatric: Alert, oriented, cooperative, normal affect. Const: Vital Signs, click to edit/add: Vital Signs - 24 hr 02/19/25 09:13 02/19/25 09:34 02/19/25 09:35 Temperature 99.4 F Pulse Rate 71 85 Pulse Rate [Pulse Oximeter] 68 Respiratory Rate 24 37 H 36 H Blood Pressure 113/71 Blood Pressure [Ri ght Upper Arm] 87/60 L Pulse Oximetry 90 85 L 91 Oxygen Delivery Me thod Room Air Room Air Nasal Cannula Oxygen Flow Rate 2 02/19/25 09:43 02/19/25 09:45 02/19/25 09:50 Temperature Pulse Rate 55 L 68 52 L Pulse Rate [Pulse Oximeter] Respiratory Rate 35 H 34 H 33 H Blood Pressure 134/73 146/74 H Blood Pressure [Ri ght Upper Arm] Pulse Oximetry 97 93 96 Oxygen Delivery Me thod Nasal Cannula Nasal Cannula Nasal Cannula Oxygen Flow Rate 2 2 2 02/19/25 09:51 02/19/25 10:00 02/19/25 10:03 Temperature Pulse Rate 72 71 89 Pulse Rate [Pulse Oximeter] Respiratory Rate 30 H 29 H 27 H Blood Pressure 134/76 Blood Pressure [Ri ght Upper Arm] Pulse Oximetry 95 90 96 Oxygen Delivery Me thod Nasal Cannula Nasal Cannula Nasal Cannula Oxygen Flow Rate 02/19/25 10:15 02/19/25 10:17 02/19/25 10:53 Temperature Pulse Rate 82 96 85 Pulse Rate [Pulse Oximeter] Respiratory Rate 23 33 H Blood Pressure 116/92 H Blood Pressure [Ri ght Upper Arm] Pulse Oximetry 95 94 96 Oxygen Delivery Me thod Oxygen Flow Rate 02/19/25 10:57 02/19/25 11:00 02/19/25 11:02 Temperature Pulse Rate 73 90 64 Pulse Rate [Pulse Oximeter] Respiratory Rate Blood Pressure 157/147 H 136/94 H Blood Pressure [Ri ght Upper Arm] Pulse Oximetry 94 94 95 Oxygen Delivery Me thod Oxygen Flow Rate 02/19/25 11:15 02/19/25 11:17 02/19/25 11:30 Temperature Pulse Rate 77 67 76 Pulse Rate [Pulse Oximeter] Respiratory Rate Blood Pressure 116/103 H Blood Pressure [Ri ght Upper Arm] Pulse Oximetry 94 94 93 Oxygen Delivery Me thod Oxygen Flow Rate 02/19/25 11:32 02/19/25 11:45 02/19/25 11:47 Temperature Pulse Rate 86 49 L 57 L Pulse Rate [Pulse Oximeter] Respiratory Rate 37 H 32 H Blood Pressure 94/82 45/34 L Blood Pressure [Ri ght Upper Arm] Pulse Oximetry 93 95 95 Oxygen Delivery Me thod Oxygen Flow Rate 02/19/25 11:49 Temperature Pulse Rate 64 Pulse Rate [Pulse Oximeter] Respiratory Rate 28 H Blood Pressure 123/74 Blood Pressure [Ri ght Upper Arm] Pulse Oximetry 95 Oxygen Delivery Me thod Oxygen Flow Rate Results Labs Labs: Abnormal lab results 02/19/25 02/19/25 02/19/25 Range/Units 09:13 09:39 09:50 WBC 11.81 H (4.50-11.00) K/uL Hgb 12.8 L (13.5-17.5) gm/dL RDW Coeff of David 17.1 H (11.5-15.5) % Neut % (Auto) 79.1 H (42.0-72.0) % Lymph % (Auto) 9.5 L (20-44) % Neut # (Auto) 9.30 H (1.7-7.0) K/uL [place] # (Auto) 1.20 H (0.00-0.90) K/UL BUN 38 H (7-30) mg/dL Creatinine 1.8 H (0.5-1.5) mg/dL Glucose 161 H (60-115) mg/dL Lactate 2.0 H (0.5-1.9) mmol/L POC Creatinine 1.9 H (0.6-1.3) mg/dl POC Troponin I 0.00 L (0.01-0.04) ng/ml Diabetes panel 02/19/25 Range/Units 09:50 Sodium 141 (135-149) mmol/L Potassium 4.4 (3.6-5.1) mmol/L Chloride 106 (96-114) mmol/L Carbon Dioxide 22 (20-32) mmol/L BUN 38 H (7-30) mg/dL Creatinine 1.8 H (0.5-1.5) mg/dL Glucose 161 H (60-115) mg/dL Calcium 9.0 (8.4-10.6) mg/dL AST 29 (12-35) U/L ALT 20 (4-50) U/L Alkaline Phosphatase 112 (40-150) U/L Total Protein 8.2 (6.0-8.3) g/dL Albumin 4.4 (3.3-5.0) g/dL Calcium panel 02/19/25 Range/Units 09:50 Calcium 9.0 (8.4-10.6) mg/dL Albumin 4.4 (3.3-5.0) g/dL Pituitary panel 02/19/25 Range/Units 09:50 Sodium 141 (135-149) mmol/L Potassium 4.4 (3.6-5.1) mmol/L Chloride 106 (96-114) mmol/L Carbon Dioxide 22 (20-32) mmol/L BUN 38 H (7-30) mg/dL Creatinine 1.8 H (0.5-1.5) mg/dL Glucose 161 H (60-115) mg/dL Calcium 9.0 (8.4-10.6) mg/dL Adrenal panel 02/19/25 Range/Units 09:50 Sodium 141 (135-149) mmol/L Potassium 4.4 (3.6-5.1) mmol/L Chloride 106 (96-114) mmol/L Carbon Dioxide 22 (20-32) mmol/L BUN 38 H (7-30) mg/dL Creatinine 1.8 H (0.5-1.5) mg/dL Glucose 161 H (60-115) mg/dL Calcium 9.0 (8.4-10.6) mg/dL Total Bilirubin 0.9 (0.1-1.5) mg/dL AST 29 (12-35) U/L ALT 20 (4-50) U/L Alkaline Phosphatase 112 (40-150) U/L Total Protein 8.2 (6.0-8.3) g/dL Albumin 4.4 (3.3-5.0) g/dL All other labs normal. Imaging Additional studies: Left knee x-ray INDICATION:Fall COMPARISON:None. TECHNIQUE:Three views left knee, nonweightbearing. FINDINGS: No acute or healing fracture. No dislocation. Tricompartmental osteoarthritis. Even on nonweightbearing images there is complete loss of the medial joint space. No focally destructive bony lesion. Quadriceps enthesophyte onto the patella. Soft tissue swelling anterior to the patella. No joint effusion. No foreign body. IMPRESSION: Prepatellar soft tissue swelling in the left knee. No fracture seen. Dictated by Elizabeth Borjas MD @ 02/19/2025 11:07:[address] Chest/Abdomen/Pelvis INDICATION: Fell 2 days ago. Abdomen/rib bruising. TECHNIQUE: Volumetric helical scanning of the chest, abdomen and pelvis was performed with 108 cc of Isovue 370 contrast material IV. Coronal and sagittal reconstructions were obtained. COMPARISON: Chest/abdomen/pelvis CT of 04/15/2021 FINDINGS: CHEST: No pneumothorax, hemothorax or pulmonary contusion is evident. Acute nondisplaced fractures of the lateral left 4th and 5th ribs are demonstrated as well as acute nondisplaced fractures of the anterolateral left 6th and 7th ribs. No acute thoracic spine fracture is evident. A chronic-appearing moderate T6 compression fracture is noted and is new since the 2020 exam. Chronic mild compression fractures of T8 and T9 are again demonstrated. No mediastinal hematoma is apparent. The lungs, airways and pleural spaces are clear. There is no mediastinal or hilar adenopathy. The heart is normal in size. Calcified coronary arterial plaque is demonstrated. ABDOMEN/PELVIS: No free intraperitoneal blood is demonstrated. The liver, spleen, adrenal glands, kidneys and pancreas are intact. No lumbar spinal or pelvic fracture is evident. Renal parenchymal cysts are present bilaterally. On image 164 of series 3, an exophytic 1.9 cm hyperdense cyst or solid mass arises from the posterior mid to upper left kidney, increased from 0.8 cm on the previous examination. Several presumed hyperdense left renal cysts are demonstrated and are unchanged or increased from the prior study. The biliary system is unremarkable. No lymphadenopathy is evident. The bowel is unremarkable except for colonic diverticulosis and a small hiatal hernia. A trabeculated bladder is demonstrated. The prostate is negative. Incidental note is made of thrombus in the right femoral and common femoral veins. IMPRESSION: 1. Acute nondisplaced fractures of the lateral left 4th and 5th ribs and the anterolateral left 6th and 7th ribs. No other obvious acute traumatic abnormality demonstrated. 2. Incidentally noted DVT in the right femoral and common femoral veins. 3. Renal parenchymal cysts bilaterally and 1.9 cm hyperdense cyst or solid mass which is increased from 0.8 cm on the previous examination. Renal MRI is recommended. 4. Trabeculated bladder. 5. Small hiatal hernia. Dictated by Nicko Vail MD @ 02/19/2025 11:25:[address] head: IMPRESSION: No acute traumatic injury is identified. The study is limited by patient motion artifact. Incidental findings described in the body of the report. Dictated by Phillip Arias MD @ 02/19/2025 10:59:[address] C-spine 02/19/25 IMPRESSION: 1. No sign of acute injury. 2. Multilevel degenerative spondylosis. CT lumbar spine, 02/19/2025: IMPRESSION: 1. No sign of acute injury. 2. Multilevel degenerative spondylosis. Dictated by Kenny Cary MD @ 02/19/2025 4:00:[address] thoracic spine, 02/19/2025: IMPRESSION: As noted on the same day CT chest abdomen pelvis, there is a new wedge compression deformity the T6 vertebral body with approximately 40 percent anterior height loss. While age-indeterminate, this may be acute in the setting of trauma. Dictated by Kenny Cary MD @ 02/19/2025 3:54:45 PM Progress Note:A&P Assessment and plan (1) Acute hypoxic respiratory failure: Status: Acute (2) Cellulitis: Status: Acute (3) Wound, open, knee, lower leg, or ankle with complication: Status: Acute (4) COPD (chronic obstructive pulmonary disease): Status: Acute (5) DVT (deep venous thrombosis): Status: Acute (6) Fracture, ribs: Status: Acute Plan The patient is a 74-year-old male who is status post fall 2 days ago. Per the patient it was a mechanical fall, however he did possibly have loss of consciousness/syncope. Initial CT scan showed old thoracic spine fractures at T6-3 and 9. However, the compression deformity at T6 may be acute in the setting of trauma. -initially, when I saw the patient is respiratory status was very tenuous, however after nebulizers and some pain control, his breathing is much more comfortable. -continue respiratory therapy for ongoing pulmonary cares. Encourage IS. Encourage patient to cough. Agree with broad treatment for COPD exacerbation/infection. -also recommend cardiac workup - unclear if respiratory status has worsened since he was admitted verses my exam, however if there is a degree of heart failure, he may need diuresis. PE not seen on CT scan, however this remains a consideration -agree with anti-coagulation for DVT. -patient does have tenderness over his mid thoracic spine. Would recommend consultation with [facility]sur[facility] to discuss whether not transfer or bracing may be necessary. -recommend T-spine precautions (bedrest, HOB no greater than 30?) until this has been discussed. -wound debrided today at bedside. See procedure note. -will change dressing in am. OK to reinforce if significant drainage or bleeding. -agree with antibiotics and follow culture results -tetanus shot -PT/OT
[2025-02-19] MEDS: HYDROmorphone 0.5 mg/0.5 ml inj 0.2 MG IVP (12:04)
[2025-02-19] MEDS: AMPICILLIN/SULBACTAM 3 GM in 0.9 % SODIUM CHLORIDE Mini-bag 100 ML IVPB (12:04)
[2025-02-19] MEDS: APIXABAN 5 MG TABLET 10 MG PO (12:04)
--- NOTE | 2025-02-19 13:03 | CRLHL7_ITS ---
For Patients: As a result of the Cures Act, medical imaging exams and procedure reports are released immediately into your electronic medical record. You may view this report before your referring provider. If you have questions, please contact your health care provider. INDICATION: Trauma, fall. TECHNIQUE: CT thoracic spine without contrast. COMPARISON: CT chest dated 04/15/2021. FINDINGS: Vertebrae: No evident acute fracture traumatic subluxation. Compared to 04/15/2021, there is a new mild compression deformity the T6 vertebral body with approximately 40 percent anterior height loss. Redemonstrated chronic mild compression fractures at the T8-T9 vertebral bodies. Discs and facet joints: Redemonstrated diffuse degenerative changes of the disc spaces and facets. Extraspinal findings: Please see the separately dictated same day CT chest abdomen pelvis IMPRESSION: As noted on the same day CT chest abdomen pelvis, there is a new wedge compression deformity the T6 vertebral body with approximately 40 percent anterior height loss. While age-indeterminate, this may be acute in the setting of trauma. Please note that all CT scans at this facility use dose modulation, iterative reconstruction, and/or weight-based dosing when appropriate to reduce radiation dose to as low as reasonably achievable. Dictated by Kenny Cary MD @ 02/19/2025 3:54:45 PM (Electronically Signed)
--- NOTE | 2025-02-19 13:03 | CRLHL7_ITS ---
For Patients: As a result of the Century Cures Act, medical imaging exams and procedure reports are released immediately into your electronic medical record. You may view this report before your referring provider. If you have questions, please contact your health care provider. INDICATION: Fall, trauma. TECHNIQUE: CT cervical spine without contrast. COMPARISON: None. FINDINGS: Mildly motion degraded examination limiting fine detail evaluation vertebrae: Alignment is normal. There are no fractures or suspicious bony lesions. Discs and facet joints: There are degenerative disc changes most severe at C5-6 and C6-7. There are multilevel degenerative changes in the facets. Extraspinal findings: Heterogeneous thyroid parenchyma with a calcified left thyroid nodule measuring approximally 2.0 cm, grossly similar to prior. IMPRESSION: 1. No sign of acute injury. 2. Multilevel degenerative spondylosis. Please note that all CT scans at this facility use dose modulation, iterative reconstruction, and/or weight-based dosing when appropriate to reduce radiation dose to as low as reasonably achievable. Dictated by Kenny aCry MD @ 02/19/2025 3:39:52 PM (Electronically Signed)
--- NOTE | 2025-02-19 13:03 | CRLHL7_ITS ---
For Patients: As a result of the Cures Act, medical imaging exams and procedure reports are released immediately into your electronic medical record. You may view this report before your referring provider. If you have questions, please contact your health care provider. INDICATION: Trauma. TECHNIQUE: CT lumbar spine without contrast. COMPARISON: CT abdomen pelvis dated . FINDINGS: Vertebrae: No evident acute fracture or traumatic subluxation in the lumbar spine. Redemonstrated chronic hyperostotic focus in the right hemisacrum. Discs and facet joints: There are diffuse degenerative changes in the disc spaces and facet joints. Extraspinal findings: Please see the separately dictated CT chest abdomen pelvis. IMPRESSION: 1. No sign of acute injury. 2. Multilevel degenerative spondylosis. Please note that all CT scans at this facility use dose modulation, iterative reconstruction, and/or weight-based dosing when appropriate to reduce radiation dose to as low as reasonably achievable. Dictated by Kenny Cary MD @ 02/19/2025 4:00:47 PM (Electronically Signed)
[2025-02-19] MEDS: IPRAT-ALBUT 0.5-2.5 MG/3 ML NEB 1 NEB IH ×3 (13:14→21:31)
[2025-02-19] MEDS: lidocaine HCL 2 % JELLY (TOP) STERILE 6 ML TOPICAL (13:17)
[2025-02-19] MEDS: ALBUTEROL SULFATE 2.5 MG/3 ML VIAL.NEB NEB ×2 (13:19→13:49)
--- NOTE | 2025-02-19 13:38 | RESP.RT ---
Pt seen on arrival to unit. Pt on RA SPO2 80% Placed on 2L SPO2 92% Aim for SPO2 greater than 88% BBS with diffuse expiratory and inspiratory wheezing and congested. PT refusing to cough secondary to pain from ribs. Duo neb given followed by 2.5mg of albuterol. aeration much improved. Some scattered wheezing and congestion. When pt receives pain control, encourage a cough. IS placed in room. Do not start aerobika until wheezing is diminished and pain under control. Another 2.5 mg of albuterol given at this time. Provider is ordering IV steroid and morphine.
[2025-02-19] MEDS: MORPHINE 2 MG/ML inj IVP ×4 (13:44→21:32)
[2025-02-19] MEDS: LIDOCAINE 5% PATCH 1 PATCH TRANSDERMA (13:44)
[2025-02-19] MEDS: METHYLPREDNISOLONE SOD SUCC 62.5 MG/ML (125) 125 MG IVP (13:44)
[2025-02-19] MEDS: TETANUS/DIPHTH/PERTUSSIS 0.5 ML SYRINGE IM (13:49)
--- NOTE | 2025-02-19 14:30 | P.IMHP_ITS ---
Assessment and Plan Assessment and plan (1) Acute hypoxic respiratory failure: Problem comment: In setting of acute trauma, rib fractures left side 4-7; COPD RT for pulmonary support Supplemental oxygen to maintain saturations 88-92%, weaning as able Scheduled and p.r.n. nebs, inhaler, incentive spirometry Status: Acute (2) Wound, open, knee, lower leg, or ankle with complication: Problem comment: Left knee, open wound, infected, surrounding cellulitis Trauma, [place] Unasyn, renally dosed General Surgery consulted - plan for bedside debridement, wound cultures Tetanus updated Status: Acute (3) Cellulitis: Problem comment: Left knee, open infected wound Afebrile. Leukocytosis with left shift Unasyn (razo) Status: Acute (4) Fracture, ribs: Problem comment: CT shows acute nondisplaced fractures of the lateral left 4th and 5th ribs and the anterolateral left 6th and 7th ribs Pain management as needed RT for pulmonary support Therapies Will obtain CT cervical, thoracic, lumbar spine to complete, panel Status: Acute (5) DVT (deep venous thrombosis): Problem comment: CT shows DVT in the right femoral and common femoral veins Apixaban initiated 10 mg b.i.d. x7 days, transitioning to 5 mg b.i.d. and outpatient follow-up with PCP for further management Status: Acute (6) Essential hypertension: Problem comment: Hold lisinopril, creatinine 1.8 - monitor, resume with improvement Status: Acute (7) Chronic kidney disease, stage 2 (mild): Problem comment: Creatinine 1.8, baseline 1.5-1.7 Renally dose medications, hold lisinopril Status: Acute (8) COPD (chronic obstructive pulmonary disease): Problem comment: Exacerbation in setting of acute rib fractures RT for pulmonary support Schedule nebs, p.r.n. nebs, incentive spirometry, home inhaler Methylprednisolone on admission, prednisone daily Status: Acute (9) Hyperlipidemia: Problem comment: Continue statin Status: Acute (10) Renal cyst: Problem comment: Chronic, recent MRI Status: Acute Total Time Spent Total Time Spent: Today I spent 90 minutes seeing the patient, reviewing Expanse and EPIC notes/diagnostics, discussing the care plan with our care time that includes social work, PT/OT, pharmacy, RT, retirement and documenting my impressions and plan in the medical record. Hospitalist- H&P: HPI History of Present Illness Date Seen: 02/19/25 Chief complaint: Fell- left knee wrapped and some chest issues Narrative: Sonny Van is a 74 year old male past medical history significant for COPD, CKD stage 2, anxiety, hypertension, hyperlipidemia, CAD, gout, ventricular tachycardia is admitted to the medical floor from the ED for further management trauma. Patient is seen with at bedside. 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 Able to get himself up. Open wound left knee which he and his cleaned at home. Began having difficulty breathing yesterday. Started his standing order for oral antibiotic and steroid (for COPD) without improvement. Has been tachypneic and short of breath with pain over the left ribcage. Denies headache or dizziness. No recent fevers. Denies abdominal pain, nausea, vomiting, diarrhea. Nonsmoker. Denies alcohol use. PCP is Dr. Rebolledo. Full code. Is due for tetanus. Review of Systems Narrative: REVIEW OF SYSTEMS: Complete review of systems performed and negative unless otherwise stated in HPI or below. [facility] Medical History (Updated 02/19/25 @ 16:06 by Coral Hernandez PA-C) Renal cyst ?N28.1 - Cyst of kidney, acquired (ICD-10) History of compression fracture of spine ?Z87.81 - Personal history of (healed) traumatic fracture (ICD-10) Mass of left kidney ?N28.89 - Other specified disorders of kidney and ureter (ICD-10) History of deep venous thrombosis (12/29/11) ?Z86.718 - Personal history of other venous thrombosis and embolism (ICD-10) History of atrial fibrillation (12/29/11) ?Z86.79 - Personal history of other diseases of the circulatory system (ICD- 10) Surgical History Status post total shoulder replacement (2014) ?Z96.619 - Presence of unspecified artificial shoulder joint (ICD-10) Squamous cell carcinoma (12/29/11) Rupture of right quadriceps tendon (2013) ?S76.111A - Strain of right quadriceps muscle, fascia and tendon, initial encounter (ICD-10) History of total shoulder replacement (01/15/19) ?Z96.619 - Presence of unspecified artificial shoulder joint (ICD-10) History of hernia repair (09/02/10) ?Z98.890 - Other specified postprocedural states (ICD-10) ?Z87.19 - Personal history of other diseases of the digestive system (ICD-10) History of arthroscopic knee surgery (12/29/11) ?Z98.890 - Other specified postprocedural states (ICD-10) Family History Family/Other Colon cancer Mother Colon cancer Social History What is your current living situation?: I presently have a place to live Problems where you live: no known problems Problems where you live details: none In the past 12 months, utilities in danger of being shut off: no In past 12 months, lack of transportation kept you from medical appts, meetings, work, or getting things needed for daily living: no In the past 12 mos, have been you worried that your food would run out before you had money to buy more?: never true In the past 12 mos, the food you bought just didn't last and you didn't have money to buy more?: never true Highest level of school completed/degree received: high school graduate Smoking Status: Never smoker Do you use any of these nicotine containing products: None How often do you have a drink containing alcohol: never AUDIT-C Alcohol total score: 0 Non-prescribed substance use: denies use Caffeine: No How often does anyone, including family, friends and others, physically hurt you : never How often does anyone, including family, friends and others, insult or talk down to you: never How often does anyone, including family, friends and others, threaten you with harm: never How often does anyone, including family, friends and others, scream or curse at you: never service: No Meds Home Medications and Allergies Home Medications ?Medication ?Instructions ?Recorded ?Confirmed ?Type albuterol sulfate 90 mcg/actuation 2 inh inhalation Q4H PRN 10/10/22 02/19/25 History aerosol inhaler alprazolam 0.5 mg tablet 0.5 mg PO DAILY PRN 10/10/22 02/19/25 History aripiprazole 5 mg tablet 5 mg PO DAILY 10/10/22 02/19/25 History aspirin 325 mg tablet 325 mg PO DAILY 10/10/22 02/19/25 History benzonatate 100 mg capsule 100 mg PO TID PRN 10/10/22 02/19/25 History budesonide 0.5 mg/2 mL suspension 0.5 mg inhalation QDAY 10/10/22 02/19/25 History for nebulization cholecalciferol (vitamin D3) 25 3,000 unit PO DAILY 10/10/22 02/19/25 History mcg (1,000 unit) capsule fluticasone furoate 200 1 inh inhalation DAILY 10/10/22 02/19/25 History mcg-vilanterol 25 mcg/dose inhalation powder ipratropium 0.5 mg-albuterol 3 mg 3 ml inhalation Q6H PRN 10/10/22 02/19/25 History (2.5 mg base)/3 mL nebulization soln loratadine 10 mg tablet 10 mg PO DAILY PRN 10/10/22 02/19/25 History prednisone 10 mg tablet 10 mg PO QDAY PRN 10/10/22 02/19/25 History quetiapine 300 mg tablet 600 mg PO QDAY 10/10/22 02/19/25 History triamcinolone acetonide 0.1 % 1 applic topical 10/10/22 09/02/24 History topical ointment atorvastatin 40 mg tablet 40 mg PO HS 02/19/25 02/19/25 History dextroamphetamine-amphetamine ER 20 mg PO QDAY PRN 02/19/25 02/19/25 History 10 mg 24hr capsule,extend release escitalopram oxalate 20 mg tablet 20 mg PO BID 02/19/25 02/19/25 History mirtazapine 15 mg tablet 15 mg PO QPM 02/19/25 02/19/25 History tamsulosin 0.4 mg capsule 0.4 mg PO DAILY 02/19/25 02/19/25 History Allergies Allergy/AdvReac Type Severity Reaction Status Date / Time morphine AdvReac Intermediate drops Verified 02/19/25 09:21 blood pressure Exam Narrative: Exam Narrative: PHYSICAL EXAM General: Dyspneic, sitting up bracing himself, appropriately conversant HEENT: Normocephalic, atraumatic, sclera white, EOMI, oral mucosa moist Cardiovascular: RRR Pulmonary: Coarse breath sounds throughout, dyspneic, tachypneic Abdominal: Soft, nondistended, NTTP Neurological: Alert, answering questions appropriately, cranial nerves intact, no focal findings Extremities: Left knee with large open wound, seropurulence drainage, surrounding erythema, exquisitely tender. Neurovascularly intact Skin: Warm, dry. No streaking Const: Vital Signs, click to edit/add: Vital Signs - 24 hr 02/19/25 09:13 02/19/25 09:34 02/19/25 09:35 Temperature 99.4 F Pulse Rate 71 85 Pulse Rate [Pulse Oximeter] 68 Respiratory Rate 24 37 H 36 H Blood Pressure 113/71 Blood Pressure [Le ft Arm] Blood Pressure [Ri ght Upper Arm] 87/60 L Pulse Oximetry 90 85 L 91 Oxygen Delivery Me thod Room Air Room Air Nasal Cannula Oxygen Flow Rate 2 02/19/25 09:43 02/19/25 09:45 02/19/25 09:50 Temperature Pulse Rate 55 L 68 52 L Pulse Rate [Pulse Oximeter] Respiratory Rate 35 H 34 H 33 H Blood Pressure 134/73 146/74 H Blood Pressure [Le ft Arm] Blood Pressure [Ri ght Upper Arm] Pulse Oximetry 97 93 96 Oxygen Delivery Me thod Nasal Cannula Nasal Cannula Nasal Cannula Oxygen Flow Rate 2 2 2 02/19/25 09:51 02/19/25 10:00 02/19/25 10:03 Temperature Pulse Rate 72 71 89 Pulse Rate [Pulse Oximeter] Respiratory Rate 30 H 29 H 27 H Blood Pressure 134/76 Blood Pressure [Le ft Arm] Blood Pressure [Ri ght Upper Arm] Pulse Oximetry 95 90 96 Oxygen Delivery Me thod Nasal Cannula Nasal Cannula Nasal Cannula Oxygen Flow Rate 02/19/25 10:15 02/19/25 10:17 02/19/25 10:53 Temperature Pulse Rate 82 96 85 Pulse Rate [Pulse Oximeter] Respiratory Rate 23 33 H Blood Pressure 116/92 H Blood Pressure [Le ft Arm] Blood Pressure [Ri ght Upper Arm] Pulse Oximetry 95 94 96 Oxygen Delivery Me thod Oxygen Flow Rate 02/19/25 10:57 02/19/25 11:00 02/19/25 11:02 Temperature Pulse Rate 73 90 64 Pulse Rate [Pulse Oximeter] Respiratory Rate Blood Pressure 157/147 H 136/94 H Blood Pressure [Le ft Arm] Blood Pressure [Ri ght Upper Arm] Pulse Oximetry 94 94 95 Oxygen Delivery Me thod Oxygen Flow Rate 02/19/25 11:15 02/19/25 11:17 02/19/25 11:30 Temperature Pulse Rate 77 67 76 Pulse Rate [Pulse Oximeter] Respiratory Rate Blood Pressure 116/103 H Blood Pressure [Le ft Arm] Blood Pressure [Ri ght Upper Arm] Pulse Oximetry 94 94 93 Oxygen Delivery Me thod Oxygen Flow Rate 02/19/25 11:32 02/19/25 11:45 02/19/25 11:47 Temperature Pulse Rate 86 49 L 57 L Pulse Rate [Pulse Oximeter] Respiratory Rate 37 H 32 H Blood Pressure 94/82 45/34 L Blood Pressure [Le ft Arm] Blood Pressure [Ri ght Upper Arm] Pulse Oximetry 93 95 95 Oxygen Delivery Me thod Oxygen Flow Rate 02/19/25 11:49 02/19/25 11:50 02/19/25 12:00 Temperature Pulse Rate 64 71 75 Pulse Rate [Pulse Oximeter] Respiratory Rate 28 H 27 H 29 H Blood Pressure 123/74 Blood Pressure [Le ft Arm] Blood Pressure [Ri ght Upper Arm] Pulse Oximetry 95 95 93 Oxygen Delivery Me thod Oxygen Flow Rate 2 2 02/19/25 12:03 02/19/25 12:15 02/19/25 12:17 Temperature Pulse Rate 61 49 L 59 L Pulse Rate [Pulse Oximeter] Respiratory Rate 30 H 35 H 30 H Blood Pressure 160/87 H 147/70 H Blood Pressure [Le ft Arm] Blood Pressure [Ri ght Upper Arm] Pulse Oximetry 93 94 92 Oxygen Delivery Me thod Oxygen Flow Rate 2 2 2 02/19/25 12:53 Temperature Pulse Rate Pulse Rate [Pulse Oximeter] 60 Respiratory Rate 42 H Blood Pressure Blood Pressure [Le ft Arm] 131/82 Blood Pressure [Ri ght Upper Arm] Pulse Oximetry 88 Oxygen Delivery Me thod Nasal Cannula Oxygen Flow Rate 1.5 Hospitalist - H&P: Result Labs Labs: Short CBC 02/19/25 Range/Units 09:50 WBC 11.81 H (4.50-11.00) K/uL Hgb 12.8 L (13.5-17.5) gm/dL Hct 40.2 (37.0-53.0) % Plt Count 270 (140-440) K/uL BMP 02/19/25 09:50 Sodium 141 Potassium 4.4 Chloride 106 Carbon Dioxide 22 BUN 38 H Creatinine 1.8 H Glucose 161 H Calcium 9.0 Liver Function 02/19/25 Range/Units 09:50 Total Bilirubin 0.9 (0.1-1.5) mg/dL Direct Bilirubin 0.4 (0.0-0.5) mg/dL AST 29 (12-35) U/L ALT 20 (4-50) U/L Alkaline Phosphatase 112 (40-150) U/L Albumin 4.4 (3.3-5.0) g/dL ECG Attestation: I personally reviewed and interpreted this ECG as follows: ECG interpretation date: 02/19/25 Interpretation: Sinus tachycardia, PVCs noted Imaging Knee x-ray: Attestation: I have reviewed the pertinent imaging results. Radiologist's impression: No acute or healing fracture. No dislocation. Tricompartmental osteoarthritis. Even on nonweightbearing images there is complete loss of the medial joint space. No focally destructive bony lesion. Quadriceps enthesophyte onto the patella. Soft tissue swelling anterior to the patella. No joint effusion. No foreign body. IMPRESSION: Prepatellar soft tissue swelling in the left knee. No fracture seen. CT chest abdomen pelvis: Attestation: I have reviewed the pertinent imaging results. Radiologist's impression: CHEST: No pneumothorax, hemothorax or pulmonary contusion is evident. Acute nondisplaced fractures of the lateral left 4th and 5th ribs are demonstrated as well as acute nondisplaced fractures of the anterolateral left 6th and 7th ribs. No acute thoracic spine fracture is evident. A chronic-appearing moderate T6 compression fracture is noted and is new since the 2020 exam. Chronic mild compression fractures of T8 and T9 are again demonstrated. No mediastinal hematoma is apparent. The lungs, airways and pleural spaces are clear. There is no mediastinal or hilar adenopathy. The heart is normal in size. Calcified coronary arterial plaque is demonstrated. ABDOMEN/PELVIS: No free intraperitoneal blood is demonstrated. The liver, spleen, adrenal glands, kidneys and pancreas are intact. No lumbar spinal or pelvic fracture is evident. Renal parenchymal cysts are present bilaterally. On image 164 of series 3, an exophytic 1.9 cm hyperdense cyst or solid mass arises from the posterior mid to upper left kidney, increased from 0.8 cm on the previous examination. Several presumed hyperdense left renal cysts are demonstrated and are unchanged or increased from the prior study. The biliary system is unremarkable. No lymphadenopathy is evident. The bowel is unremarkable except for colonic diverticulosis and a small hiatal hernia. A trabeculated bladder is demonstrated. The prostate is negative. Incidental note is made of thrombus in the right femoral and common femoral veins. IMPRESSION: 1. Acute nondisplaced fractures of the lateral left 4th and 5th ribs and the anterolateral left 6th and 7th ribs. No other obvious acute traumatic abnormality demonstrated. 2. Incidentally noted DVT in the right femoral and common femoral veins. 3. Renal parenchymal cysts bilaterally and 1.9 cm hyperdense cyst or solid mass which is increased from 0.8 cm on the previous examination. Renal MRI is recommended. 4. Trabeculated bladder. 5. Small hiatal hernia. Head CT: Attestation: I have reviewed the pertinent imaging results. Radiologist's impression: Motion limited exam. No acute infarct. No intracranial mass or mass effect. No intracranial hemorrhage. No hydrocephalus. Intact skull base and cranial vault. Visualized orbits are without significant incidental findings. Right maxillary sinus mucosal thickening and small dependent effusion. The visualized paranasal sinuses and mastoid air cells are otherwise clear. Unremarkable soft tissues. IMPRESSION: No acute traumatic injury is identified. The study is limited by patient motion artifact. Incidental findings described in the body of the report.
[2025-02-19 14:50] LABS: Lactate* 1.1 mmol/L (0.5-1.9)
--- NOTE | 2025-02-19 15:04 | PC.NURSE ---
End of shift: Patient arrived from ER around 1300. Respiratory status was unstable at that time. RT and hospitalist were called. 3 nebs, steroids, pain meds were given. Patient eventually starting coming around by 1445. Lidocaine patch placed in front and back of left chest. Left knee has lidocaine soaking wound and general surgeon will come and clean wound out this afternoon. BP remains stable. Oxygen levels are 93% on 1.5L. HR is irregular. Elevated to 140bpm with nebulizers but coming back down to 80bpm. Bruising noted on left chest. Laceration with redness and pussy drainage on left knee noted. No other open areas observed. Lung sounds are crackles. IS given to patient and tolerated 4 breaths. Unable to cough due to pain.
[2025-02-19 15:59] LABS: NT Pro B Type NatriureticPept* 568 pg/mL; Troponin I* < 0.01 ng/mL (0.01-0.04)
[2025-02-19 16:27] LABS: C Reactive Protein* 16.1 mg/dL (0.5-1.0)
--- NOTE | 2025-02-19 17:16 | P.PCN_ITS ---
Procedure Note Date Seen: 02/19/25 Will [facility] bill your pro fee for this procedure?: Yes Pre-op diagnosis: left knee laceration Post-op diagnosis: same Procedure: Sharp excisional debridement to subcutaneous fat, 3 x 1 x 0.5 cm, left knee Procedure Description: After obtaining verbal consent, the periwound skin and subcutaneous tissue was anesthetized with injectable 1% lidocaine. A curette was then used to debride necrotic dermis and subcutaneous fat. A wound culture was then obtained. The wound was noted to track superiorly towards a smaller opening. There was a skin and dermis bridge across the superior aspect of the wound, undermining for 2 cm. Debris was removed sharply using a curette from this area. The wound was then irrigated with Vashe and then packed with gauze. An ABD and Suleman were then applied. The patient tolerated the procedure well. Condition: stable
[2025-02-19] MEDS: MIRTAZAPINE 15 MG TABLET PO (17:24)
[2025-02-19] MEDS: QUETIAPINE 100 MG TABLET 600 MG PO (17:25)
[2025-02-19] MEDS: OMEPRAZOLE 20 MG CAPSULE DR 40 MG PO (17:25)
[2025-02-19] MEDS: LIDOCAINE 1% MDV 30 ML INJECTION (17:26)
[2025-02-19] MEDS: 0.9 % SODIUM CHLORIDE 250 ml 250 ML IV (18:04)
[2025-02-19] MEDS: AMPICILLIN/SULBACTAM 1.5 GM in 0.9 % SODIUM CHLORIDE Mini-bag 100 ML IVPB (18:23)
[2025-02-19 18:46] LABS: Basophils Absolute Auto 0.01 K/uL (0.00-0.30); Basophils Percent Auto 0.1 % (0.0-3.0); Hemoglobin* 11.1 gm/dL (13.5-17.5); Immature Granulocytes Abs Auto 0.04 K/uL (0.00-0.30); Immature Granulocytes Pct Auto 0.4 %; Lymphocytes Percent Auto 3.2 % (20-44); Mean Corpuscular HGB Conc 32 gm/dL (32-36); Mean Corpuscular Hemoglobin 26 pg (26-34); Mean Corpuscular Volume 82 fL (80-100); Monocytes Percent Auto 1.4 % (0.0-11.0); Neutrophils Percent Auto 94.9 % (42.0-72.0); Platelet Count* 240 K/uL (140-440); RDW Coefficient of Variation % 17.2 % (11.5-15.5); Red Blood Count 4.29 m/uL (4.30-5.90); White Blood Count* 10.61 K/uL (4.50-11.00)
[2025-02-19 18:47] LABS: Slide Review Reflex No
[2025-02-19 18:57] LABS: Chloride* 105 mmol/L (96-114)
[2025-02-19 18:58] LABS: Potassium* 3.9 mmol/L (3.6-5.1); Sodium* 138 mmol/L (135-149)
[2025-02-19 19:00] LABS: Blood Urea Nitrogen* 33 mg/dL (7-30); Creatinine* 1.6 mg/dL (0.5-1.5); Est. Creatinine Clearance* 44.39; Estimated Glomerular Filt Rate 44 ml/min
[2025-02-19 19:01] LABS: Anion Gap 12 mEq/L (7-15); Calcium* 8.3 mg/dL (8.4-10.6); Carbon Dioxide* 21 mmol/L (20-32); Glucose* 280 mg/dL (60-115)
--- NOTE | 2025-02-19 19:49 | PC.NURSE ---
End of shift: pt is alert x4 he is very pleasant. no pain but he is in pain with movement. Lidocaine patch placed in front and back of left chest. Left knee was debrided by general surgeon w/c was done . Lung sounds are very junky. . IS given to patient he is trying to use and trying to cough. HR was 140 sitting up. md aware. 2 SL are patent
[2025-02-19 19:50] LABS: HCO3 VBG 22 mmol/L (21-28); PCO2 VBG 35 mmHG (40-50); PO2 VBG 60.3 mmHG (25-47); pH VBG 7.412 (7.32-7.43)
--- NOTE | 2025-02-19 19:59 | PM.DST ---
Transfer Discharge Sum: Prov Provider Date Seen: 02/19/25 Date of admission: 02/19/25 13:00 Primary care physician: Daly Silveira MD Admitting clinician: Coral Hernandez Consults: RT, General Surgery Attending physician on discharge: Tory Perry Discharging clinician: Tory Perry Anticipated date of transfer: 02/19/25 Receiving physician/facility: [facility] - Dr. Jeffries DS: Diagnosis Discharge Diagnosis (1) Fracture, ribs: Status: Acute Problem details: - L lateral 4th/5th, anterolateral L 6th/7th (2) Closed T6 spinal fracture: Status: Acute Problem details: - likely acute given recent trauma + back pain, 40% height loss (3) Acute hypoxic respiratory failure: Status: Acute Problem details: - in setting of acute trauma (mechanical fall 02/17), rib fractures left side 02-03 - also h/o severe persistent asthma with evidence of exacerbation - RT following (nebs, steroids, home medications, IS) - pulse oximeter gregg of 80% during evaluation, reassuring VBG (4) Cellulitis: Status: Acute Problem details: - open wound of L knee, debrided by General Surgery 02/19 - on Unasyn - TDAP updated 02/19/25 (5) DVT (deep venous thrombosis): Status: Acute Problem details: - new DVT in R femoral and common femoral veins - Lovenox initiated 02/19 (6) Severe persistent asthma, poorly-controlled: Status: Acute Problem details: - followed by Dr. Sujatha Parra, [facility] - also has history of IgE - on Breo 200-25, Pulmicort nebs BID, prn Azithromycin/Prednisone (uses a few times/year) (7) RACHELE (acute kidney injury): Status: Acute Problem details: - baseline creatinine 1.5, creatinine 02/19/25 of 1.8 Transfer Discharge Sum: Med Medications Active and Home Medications: Home Medications albuterol sulfate 90 mcg/actuation aerosol inhaler 2 inh inhalation Q4H PRN 10/10/22 [History Confirmed 02/19/25] alprazolam 0.5 mg tablet 0.5 mg PO DAILY PRN 10/10/22 [History Confirmed 02/19/25] aripiprazole 5 mg tablet 5 mg PO DAILY 10/10/22 [History Confirmed 02/19/25] aspirin 325 mg tablet 325 mg PO DAILY 10/10/22 [History Confirmed 02/19/25] benzonatate 100 mg capsule 100 mg PO TID PRN 10/10/22 [History Confirmed 02/19/25] budesonide 0.5 mg/2 mL suspension for nebulization 0.5 mg inhalation QDAY 10/10/22 [History Confirmed 02/19/25] cholecalciferol (vitamin D3) 25 mcg (1,000 unit) capsule 3,000 unit PO DAILY 10/10/22 [History Confirmed 02/19/25] fluticasone furoate 200 mcg-vilanterol 25 mcg/dose inhalation powder 1 inh inhalation DAILY 10/10/22 [History Confirmed 02/19/25] ipratropium 0.5 mg-albuterol 3 mg (2.5 mg base)/3 mL nebulization soln 3 ml inhalation Q6H PRN 10/10/22 [History Confirmed 02/19/25] loratadine 10 mg tablet 10 mg PO DAILY PRN 10/10/22 [History Confirmed 02/19/25] prednisone 10 mg tablet 10 mg PO QDAY PRN 10/10/22 [History Confirmed 02/19/25] quetiapine 300 mg tablet 600 mg PO QDAY 10/10/22 [History Confirmed 02/19/25] triamcinolone acetonide 0.1 % topical ointment 1 applic topical 10/10/22 [History Confirmed 09/02/24] nebulizer and compressor #1 ea 10/17/23 [Rx Confirmed 09/02/24] lisinopril 20 mg tablet 20 mg PO QDAY #90 tabs 09/02/24 [Rx Confirmed 02/19/25] omeprazole 40 mg capsule,delayed release 40 mg PO QDAY #90 caps 11/07/24 [Rx Confirmed 02/19/25] atorvastatin 40 mg tablet 40 mg PO HS 02/19/25 [History Confirmed 02/19/25] dextroamphetamine-amphetamine ER 10 mg 24hr capsule,extend release 20 mg PO QDAY PRN 02/19/25 [History Confirmed 02/19/25] escitalopram oxalate 20 mg tablet 20 mg PO BID 02/19/25 [History Confirmed 02/19/25] mirtazapine 15 mg tablet 15 mg PO QPM 02/19/25 [History Confirmed 02/19/25] tamsulosin 0.4 mg capsule 0.4 mg PO DAILY 02/19/25 [History Confirmed 02/19/25] Active Medications Acetaminophen (Acetaminophen 325 Mg Tablet) 1,000 mg PO Q6H PRN Albuterol (Albuterol Sulfate 2.5 Mg/3 Ml Vial.Neb) 2.5 mg NEB Q2H PRN PRN Reason: wheezing Albuterol/Ipratropium (Iprat-Albut 0.5-2.5 Mg/3 Ml Neb) 1 neb IH Q4H [facility] Last Admin: 02/19/25 17:27 Dose: 1 neb Alprazolam (Alprazolam 0.25 Mg Tablet) 0.5 mg PO DAILY PRN Aripiprazole (Aripiprazole 10 Mg Tablet) 5 mg PO DAILY [facility] Aspirin (Aspirin Ec 325 Mg Tablet) 325 mg PO DAILY [facility] Atorvastatin Calcium (Atorvastatin Calcium 40 Mg Tablet) 40 mg PO HS [facility] Enoxaparin Sodium (Enoxaparin 80 Mg/0.8 Ml Inj) 100 mg SUBCUT Q12H [facility] Escitalopram Oxalate (Escitalopram 10 Mg Tablet) 20 mg PO BID [facility] Ampicillin Sodium/Sulbactam (Sodium 1.5 gm/ Sodium Chloride) 100 mls @ 200 mls/hr IVPB Q6H [facility] Last Admin: 02/19/25 18:23 Dose: 200 mls/hr Sodium Chloride (0.9 % Sodium Chloride 1000 Ml) 1,000 mls @ 150 mls/hr IV .Q6H40M [facility] Lidocaine (Lidocaine 5% Patch) 1 patch TRANSDERMA Q24H [facility]; Protocol Last Admin: 02/19/25 13:44 Dose: 1 patch Melatonin (Melatonin 3 Mg Tablet) 3 - 6 mg PO HS PRN Mirtazapine (Mirtazapine 15 Mg Tablet) 15 mg PO QPM [facility] Last Admin: 02/19/25 17:24 Dose: 15 mg Morphine Sulfate (Morphine 2 Mg/Ml Inj) 2 mg IVP Q2H PRN Last Admin: 02/19/25 18:34 Dose: 2 mg Non-Formulary Medication (Fluticasone Furoate-Vilanterol) 1 inhalation IH DAILY [facility] Omeprazole (Omeprazole [address]) 40 mg PO DAILY [facility] Last Admin: 02/19/25 17:25 Dose: 40 mg Ondansetron HCl (Ondansetron 2 Mg/Ml Inj) 4 mg IVP Q4H PRN PRN Reason: Nausea Oxycodone HCl (Oxycodone 5 Mg Tablet) 5 mg PO Q4H PRN PRN Reason: Pain Prednisone (Prednisone 20 Mg Tablet) 40 mg PO DAILYWM [facility] Quetiapine Fumarate (Quetiapine 100 Mg Tablet) 600 mg PO DAILY [facility] Last Admin: 02/19/25 17:25 Dose: 600 mg Senna/Docusate Sodium (Sennosides/Docusate Tablet) 1 tab PO DAILY PRN Sodium Chloride (Sodium Chloride 0.9 % (Flush) 10 Ml Syringe) 5 ml IVF .FLUSH PRN Sodium Chloride (Sodium Chloride 0.9 % (Flush) 10 Ml Syringe) 5 ml IVF BID [facility] Tamsulosin HCl (Tamsulosin Hcl 0.4 Mg Capsule) 0.4 mg PO DAILY [facility] Transfer Discharge Sum: Hosp Hospital Course Hospital course: Sonny Van is a 74 year old male who presented to the emergency room today for left-sided chest pain and a left knee wound after falling at home 2 days ago. 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 Unsure if he had any preceding dizziness or palpitations, does not think he hit his head. He cleaned his left knee laceration at home. 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 In the emergency room, he was diagnosed with left-sided rib fractures (4-7) and noted to have mild RACHELE (creatinine of 1.8, baseline 1.5). Also noted to have a DVT in the right femoral and common femoral vein + incidental renal parenchymal cysts After arrival to the floor: - Unasyn initiated for L knee wound, TDAP updated. Seen and debrided by Dr. Mckeon of General Surgery - more hypoxic (down to 80%) and seen by RT, supplemental oxygen continued, IS initiated - CT of C/T/L spines obtained; noted to have a T6 compression fracture with 40% height loss, + back pain. No specific precautions per Dr. Adams of Neurosurgery - intermittent episodes of sinus tachycardia (HR up to 140), primarily when moving. Heart rate improved with IV morphine and 250mL IVF bolus - Hgb fell from 12.8 in ED to --> 11.1 Given patient's multi-system trauma, new DVT, severe persistent asthma history and acute hypoxic respiratory failure, discussed transfer to tertiary care center. He and were in agreement with this plan. Excepted by Dr. Jeffries at [facility] on 02/19/2025. Time Spent with Patient Time attestation: Total time spent providing and/or coordinating transfer services: Total time spent: Greater than 30 minutes Exam Narrative: Exam Narrative: GEN: Awake and laying in bed, appears uncomfortable, + dyspnea HEENT: No head trauma, + EOMIs bilaterally, no scleral icterus CV: RRR during my exam R: + tachypnea and dyspnea, coarse rhonchi Back: + ttp over thoracic spine Skin: L knee has large wound (3cm x1cm x0.5cm), has been debrided by General Surgery, + surrounding erythema without crepitus Ext: No concerning edema, normal capillary refill Const: Vital Signs, click to edit/add: Vital Signs - 24 hr 02/19/25 09:13 02/19/25 09:34 02/19/25 09:35 Temperature 99.4 F Pulse Rate 71 85 Pulse Rate [Pulse Oximeter] 68 Respiratory Rate 24 37 H 36 H Blood Pressure 113/71 Blood Pressure [Le ft Arm] Blood Pressure [Ri ght Upper Arm] 87/60 L Pulse Oximetry 90 85 L 91 Oxygen Delivery Me thod Room Air Room Air Nasal Cannula Oxygen Flow Rate 2 02/19/25 09:43 02/19/25 09:45 02/19/25 09:50 Temperature Pulse Rate 55 L 68 52 L Pulse Rate [Pulse Oximeter] Respiratory Rate 35 H 34 H 33 H Blood Pressure 134/73 146/74 H Blood Pressure [Le ft Arm] Blood Pressure [Ri ght Upper Arm] Pulse Oximetry 97 93 96 Oxygen Delivery Me thod Nasal Cannula Nasal Cannula Nasal Cannula Oxygen Flow Rate 2 2 2 02/19/25 09:51 02/19/25 10:00 02/19/25 10:03 Temperature Pulse Rate 72 71 89 Pulse Rate [Pulse Oximeter] Respiratory Rate 30 H 29 H 27 H Blood Pressure 134/76 Blood Pressure [Le ft Arm] Blood Pressure [Ri ght Upper Arm] Pulse Oximetry 95 90 96 Oxygen Delivery Me thod Nasal Cannula Nasal Cannula Nasal Cannula Oxygen Flow Rate 02/19/25 10:15 02/19/25 10:17 02/19/25 10:53 Temperature Pulse Rate 82 96 85 Pulse Rate [Pulse Oximeter] Respiratory Rate 23 33 H Blood Pressure 116/92 H Blood Pressure [Le ft Arm] Blood Pressure [Ri ght Upper Arm] Pulse Oximetry 95 94 96 Oxygen Delivery Me thod Oxygen Flow Rate 02/19/25 10:57 02/19/25 11:00 02/19/25 11:02 Temperature Pulse Rate 73 90 64 Pulse Rate [Pulse Oximeter] Respiratory Rate Blood Pressure 157/147 H 136/94 H Blood Pressure [Le ft Arm] Blood Pressure [Ri ght Upper Arm] Pulse Oximetry 94 94 95 Oxygen Delivery Me thod Oxygen Flow Rate 02/19/25 11:15 02/19/25 11:17 02/19/25 11:30 Temperature Pulse Rate 77 67 76 Pulse Rate [Pulse Oximeter] Respiratory Rate Blood Pressure 116/103 H Blood Pressure [Le ft Arm] Blood Pressure [Ri ght Upper Arm] Pulse Oximetry 94 94 93 Oxygen Delivery Me thod Oxygen Flow Rate 02/19/25 11:32 02/19/25 11:45 02/19/25 11:47 Temperature Pulse Rate 86 49 L 57 L Pulse Rate [Pulse Oximeter] Respiratory Rate 37 H 32 H Blood Pressure 94/82 45/34 L Blood Pressure [Le ft Arm] Blood Pressure [Ri ght Upper Arm] Pulse Oximetry 93 95 95 Oxygen Delivery Me thod Oxygen Flow Rate 02/19/25 11:49 02/19/25 11:50 02/19/25 12:00 Temperature Pulse Rate 64 71 75 Pulse Rate [Pulse Oximeter] Respiratory Rate 28 H 27 H 29 H Blood Pressure 123/74 Blood Pressure [Le ft Arm] Blood Pressure [Ri ght Upper Arm] Pulse Oximetry 95 95 93 Oxygen Delivery Me thod Oxygen Flow Rate 2 2 02/19/25 12:03 02/19/25 12:15 02/19/25 12:17 Temperature Pulse Rate 61 49 L 59 L Pulse Rate [Pulse Oximeter] Respiratory Rate 30 H 35 H 30 H Blood Pressure 160/87 H 147/70 H Blood Pressure [Le ft Arm] Blood Pressure [Ri ght Upper Arm] Pulse Oximetry 93 94 92 Oxygen Delivery Me thod Oxygen Flow Rate 2 2 2 02/19/25 12:53 02/19/25 14:29 02/19/25 14:32 Temperature Pulse Rate Pulse Rate [Pulse Oximeter] 60 75 Respiratory Rate 42 H 25 H Blood Pressure Blood Pressure [Le ft Arm] 131/82 145/86 H Blood Pressure [Ri ght Upper Arm] Pulse Oximetry 88 93 93 Oxygen Delivery Me thod Nasal Cannula Nasal Cannula Nasal Cannula Oxygen Flow Rate 1.5 1.5 1.5 02/19/25 14:46 02/19/25 15:22 02/19/25 15:46 Temperature 99.2 F Pulse Rate 89 Pulse Rate [Pulse Oximeter] 81 Respiratory Rate 25 H 28 H Blood Pressure Blood Pressure [Le ft Arm] 131/84 Blood Pressure [Ri ght Upper Arm] Pulse Oximetry 93 93 Oxygen Delivery Me thod Nasal Cannula Nasal Cannula Oxygen Flow Rate 1.5 1.5 02/19/25 15:49 Temperature Pulse Rate Pulse Rate [Pulse Oximeter] 81 Respiratory Rate 28 H Blood Pressure Blood Pressure [Le ft Arm] Blood Pressure [Ri ght Upper Arm] Pulse Oximetry Oxygen Delivery Me thod Oxygen Flow Rate Discharge Plan Discharge Disposition: [facility] Date of Admission: 02/19/25 13:00 Attending Provider on Discharge: Tory Perry Primary Care Provider: Daly Silveira Discharge Orders: Transfer of Care to Other Hospital (ORDER); Ordered 02/19/25 Ordered By: Tory Perry Oxygen: Yes Oxygen Delivery Method: Nasal Cannula Oxygen Flow Rate: 2L Urinary Catheter: No Services not available here: Trauma, Pulmonology
[2025-02-19] MEDS: 0.9 % SODIUM CHLORIDE 1000 ml 1,000 ML 150 ML IV (20:25)
[2025-02-19] MEDS: ESCITALOPRAM 10 MG TABLET 20 MG PO (21:31)
[2025-02-19] MEDS: ENOXAPARIN 100 MG/ML INJ SUBCUT (21:32)
[2025-02-19] MEDS: ATORVASTATIN CALCIUM 40 MG TABLET PO (21:32)
--- NOTE | 2025-02-19 22:31 | PC.NURSE ---
Report given to Loulou at [facility]. Call back number for her is [phone]. Patient will go to room number 8950. Lisa called to update on official bed placement and transfer tonight.
--- NOTE | 2025-02-20 01:11 | PC.NURSE ---
Shift 2330: Pt alert and oriented. Pt had no complaints of pain. Pt's RR increased. Pt on 2 Liters via NC. Pt transferring to [facility] for higher level of care.
== END 2025-02-20 00:58 | disposition short-term general hospital (02) | DRG 167 ==
LOC: ED 12:01 → MEDSURG 12:31
PROVIDERS: Family Medicine; Physician Assistant; Admitting Provider Family Medicine; Emergency Provider Emergency Medicine Emergency Medical Services; PCP Internal Medicine; Visit Provider Family Medicine
DX: J96.01 Acute respiratory failure with hypoxia (principal); I82.411 Acute embolism and thrombosis of right femoral vein; S22.42XA Multiple fractures of ribs, left side, initial encounter for closed fracture; S22.059A Unspecified fracture of T5-T6 vertebra, initial encounter for closed fracture; L03.116 Cellulitis of left lower limb; N17.9 Acute kidney failure, unspecified; J44.1 Chronic obstructive pulmonary disease with (acute) exacerbation; W17.89XA Other fall from one level to another, initial encounter; Y92.71 Barn as the place of occurrence of the external cause; S81.012A Laceration without foreign body, left knee, initial encounter; J45.50 Severe persistent asthma, uncomplicated; I12.9 Hypertensive chronic kidney disease with stage 1 through stage 4 chronic kidney disease, or unspecified chronic kidney disease; N18.2 Chronic kidney disease, stage 2 (mild); E78.5 Hyperlipidemia, unspecified; N28.1 Cyst of kidney, acquired; Z96.619 Presence of unspecified artificial shoulder joint; Z86.79 Personal history of other diseases of the circulatory system; Z86.718 Personal history of other venous thrombosis and embolism
CPT/HCPCS: 36415; 70450; 71260; 72125; 72128; 72131; 73562; 74177; 80048; 80076; 81001; 82565; 82803; 83605; 83880; 84484; 85025; 85027; 86140; 87040; 87070; 87186; 87631; 87635; 90715; 93005; 94640; 99284; 99285; J2003; A9270; J0295; J1171; J1650; J2270; J2919; J7030; J7050; Q9967

== ENCOUNTER 2025-02-20 00:58 | Outpatient (CLI) | payer OTHER, SELFPAY | END 2025-02-20 00:59 | disposition home or self-care (01) | LOC: AMB 02-21 10:21 | PROVIDERS: PCP Internal Medicine; Visit Provider Family Medicine | DX: S22.059A Unspecified fracture of T5-T6 vertebra, initial encounter for closed fracture (principal); S22.39XA Fracture of one rib, unspecified side, initial encounter for closed fracture; J96.01 Acute respiratory failure with hypoxia; I82.411 Acute embolism and thrombosis of right femoral vein | CPT/HCPCS: A0425; A0427 ==

== ENCOUNTER 2025-05-05 14:16 | Outpatient (CLI) | payer OTHER, SELFPAY ==
--- NOTE | 2025-05-05 14:30 | CRLHL7_ITS ---
For Patients: As a result of the Century Cures Act, medical imaging exams and procedure reports are released immediately into your electronic medical record. You may view this report before your referring provider. If you have questions, please contact your health care provider. INDICATION: Renal cysts TECHNIQUE: 1.5 T MRI of the abdomen performed with pre and postcontrast T1 weighted imaging; T2 weighted imaging; in and out of phase imaging; diffusion weighted imaging. 20 mL Dotarem IV COMPARISON: CT chest abdomen pelvis 02/19/2025 MR abdomen 10/26/2020 FINDINGS: Lungs: The lung bases are clear. No pleural or pericardial effusion. Liver: Homogeneous liver parenchyma. No hepatic masses. Scattered subcentimeter T2 hyperintensities too small to accurately characterize, but likely benign cysts. Biliary tree and gallbladder: No intra or extrahepatic biliary dilation. Fluid-filled gallbladder without stones. Spleen: Unremarkable Pancreas: Normal pancreatic parenchyma. No pancreatic masses. No pancreatic duct dilation. Adrenal glands: Unremarkable. Kidneys and ureters: Atrophic kidneys bilaterally. No hydronephrosis. Multiple cystic T2 hyperintense and T1 hyperintense renal cysts, some of which contain layering proteinaceous/hemorrhagic material. A left upper lobe exophytic cyst with layering proteinaceous/hemorrhagic material is increased in size compared to 2020 measuring 3.9 cm (), previously 3.3 cm (Bosniak 2 F). Increased adjacent homogeneously T1 hyperintense proteinaceous/hemorrhagic cyst measuring 2 cm (04/10), previously 0.6 cm (Bosniak 2). Increased left inferior pole T2 intermediate cyst with layering proteinaceous/hemorrhagic material measuring 2.4 cm (04/18), previously 1.1 cm (Bosniak 2 F) GI tract: No evidence of obstruction or inflammation. Vasculature: The IVC and aorta are patent. No abdominal aortic aneurysm. Lymph nodes: No lymphadenopathy. Abdominal wall: Unremarkable Bladder: Severely trabeculated bladder wall, incompletely assessed on this exam. Bones: Degenerative change of the imaged spine. Prominent hyperostotic region in the right hemisacrum is not well evaluated on this study. IMPRESSION: Multiple bilateral simple and proteinaceous/hemorrhagic renal cysts, some of which have increased in size compared to MRI from 2020, including a left upper pole and a left lower pole cyst with layering proteinaceous/hemorrhagic material (Bosniak 2F). No suspicious enhancement or solid renal masses are appreciated. Dictated by Tessa Boss MD @ 05/07/2025 10:29:12 AM (Electronically Signed)
== END 2025-05-05 14:17 | disposition home or self-care (01) ==
LOC: MRI 14:17
PROVIDERS: PCP Internal Medicine; Visit Provider Internal Medicine
DX: N28.1 Cyst of kidney, acquired (principal); N28.89 Other specified disorders of kidney and ureter
CPT/HCPCS: 74183; A9575